=== PATIENT | female | born 1950 | race Caucasian/White ===

== ENCOUNTER 2016-03-08 09:25 | Emergency (ER) | payer MEDICARE ==
[~2016-03-08 09:25] MED LIST: ERGO400T2 PO; HYDR-2666 PO; HYDR-2869 PO; HYDR-971 PO; INSU100I11 SQ; INSU100V8 SQ; LIRA0.6P SQ; LOSA100T6 PO; METH750T2 PO; NITR100C62 PO; OMEP40CA5 PO; RANI150T6 PO; VERA180T4 PO
[2016-03-08] MEDS ORDERED: IV NORMAL SALINE 1000ML BAG 1,000 ML IV SCH (11:01)
[2016-03-08] MEDS ORDERED: ONDANSETRON PF 4 MG/2 ML VIAL. IV ONE (11:15)
[2016-03-08] MEDS ORDERED: FENTANYL PF 100 MCG/2 ML VIAL. IV PRN (11:15)
[2016-03-08] MEDS ORDERED: FAMOTIDINE 20 MG/2 ML VIAL IVP ONE (11:15)
[2016-03-08 11:21] LABS: BILIRUBIN,URINE NEGATIVE (NEG); GLUCOSE,URINE 500 mg/dL (NEG); NITRITE,URINE NEGATIVE (NEG); PH,URINE 6.5; PROTEIN,URINE NEGATIVE (NEG-TRACE)
[2016-03-08 11:24] LABS: BASO # 0.1 x10^3/uL (0.0-0.2); BASO % 1 % (0-3); EOS % 2 % (0-3); HEMATOCRIT 43.1 % (36.0-47.0); HEMOGLOBIN 14.7 g/dL (12.0-15.5); LYMPH # 1.6 x10^3/uL (1.0-4.8); LYMPH % 17 % (24-48); MEAN CORPUSCULAR HEMOGLOBIN 29 pg (25-35); MEAN CORPUSCULAR HGB CONC 34 g/dL (31-37); MEAN CORPUSCULAR VOLUME 85 fL (79-100); MONO % 8 % (0-9); NEUT % 72 % (31-73); PLATELET COUNT 274 x10^3/uL (140-400); RED BLOOD COUNT 5.07 x10^6/uL (3.50-5.40); RED CELL DISTRIBUTION WIDTH 12.6 % (11.5-14.5); WHITE BLOOD COUNT 9.7 x10^3/uL (4.0-11.0)
[2016-03-08] MEDS ORDERED: CONTRAST GIVEN MC PRN (11:30)
[2016-03-08] MEDS ORDERED: IOHEXOL 300 MG/ML 75 ML VIAL IV ONE (11:30)
[2016-03-08 11:32] LABS: CREATININE 1.1 mg/dL (0.6-1.0); GFR 49.7; POTASSIUM 4.2 mmol/L (3.5-5.1)
[2016-03-08 11:35] LABS: ALBUMIN 3.4 g/dL (3.4-5.0); ALBUMIN/GLOBULIN RATIO 0.8 (1.0-1.7); TOTAL BILIRUBIN 0.9 mg/dL (0.2-1.0); TOTAL PROTEIN 7.8 g/dL (6.4-8.2)
[2016-03-08 11:46] LABS: BACTERIA,URINE FEW /HPF (0-FEW); RBC,URINE RARE /HPF (0-2); SQUAMOUS EPITHELIAL CELL,UR MOD /LPF; WBC,URINE 20-40 /HPF (0-4)
--- NOTE | 2016-03-08 12:16 | EKG ---
[facility] [address] [place] [address] Test Date: 2016-03-08 Test Time: 11:59:41 Pat Name: MICHAEL GALLEGOS Department: Room: Gender: Female Learning Support Aide: : 1950 Requested By: LATASHA PATEL Order Number: [id number] Reading MD: Jasmeet Roberts Measurements Intervals [place] Rate: 67 P: 39 WI: 236 QRS: -7 QRSD: 92 T: 23 QT: 444 QTc: 472 Interpretive Statements SINUS RHYTHM PROLONGED WI INTERVAL Electronically Signed On 03-11-2016 10:20:21 HEALTH EQUIPMENT SERVICER by Jasmeet Roberts
--- NOTE | 2016-03-08 12:19 | RAD ---
Indication: Right upper quadrant pain. Axial imaging through the abdomen and pelvis was performed after the administration of intravenous contrast. Comparison is made with prior CT from 11/01/2015. The lung bases are clear. Calcific density right lobe of the liver is again noted and unchanged. The gallbladder is surgically absent. The pancreas and spleen are unremarkable. No adrenal mass is detected. The kidneys are unremarkable. No hydronephrosis or calculi are identified. The aorta is nonaneurysmal. Minimal inflammatory changes in the right perirenal location and adjacent to the tip of the right lobe of the liver persists and appears similar. No fluid collection is identified. The small and large bowel loops are normal caliber. There is moderate stool within the colon. The bladder is unremarkable. No free air is detected. There is a small fat-containing umbilical hernia. Impression: Similar CT when compared with exam from 11/01/2015. Mild inflammatory changes in the right abdomen adjacent to the right liver edge and right kidney is unchanged. No new abnormality is detected. No free fluid or fluid collection is detected.
[2016-03-08] MEDS ORDERED: NITR100C62 PO (14:09)
[2016-03-08] MEDS ORDERED: HYDR-971 PO (14:09)
--- NOTE | 2016-03-08 14:09 | PHYS DOC ---
Past Medical History Past Medical History: Arthritis, Diabetes-Type I, High Cholesterol, Hypertension Past Surgical History: Cholecystectomy, Hysterectomy, Knee Replacement, Other Additional Past Surgical Histo: RIGHT ROTATOR CUFF, NERVES IN NECK Alcohol Use: None Drug Use: None Adult General Chief Complaint Chief Complaint: ABDOMINAL PAIN HPI HPI Patient is a 65 year old female who presents with complaint of right upper quadrant abdominal pain for the past 5 days. Patient states that her symptoms have gradually been worsening over this time period. The patient states that she has had sharp pain that radiates towards her right flank. Patient denies any fevers or dysuria. Patient has had history of cholecystectomy. Patient has had intermittent episodes of right upper quadrant pain since her cholecystectomy. Patient denies vomiting or diarrhea with her symptoms. Patient states the pain worsens with movement. Patient has been taking [id number] medication for pain with no relief. Patient rates her pain currently as 9 out of 10. Review of Systems Review of Systems Constitutional: Denies fever or chills [] Eyes: Denies change in visual acuity, redness, or eye pain [] HENT: Denies nasal congestion or sore throat [] Respiratory: Denies cough or shortness of breath [] Cardiovascular: Denies chest pain or edema [] GI: Abdominal pain, denies nausea, vomiting, bloody stools or diarrhea [] : Denies dysuria or hematuria [] Musculoskeletal: Denies back pain or joint pain [] Integument: Denies rash or skin lesions [] Neurologic: Denies headache, focal weakness or sensory changes [] Endocrine: Denies polyuria or polydipsia [] Current Medications Current Medications Current Medications Medications (Trade) Dose Ordered Sig/[facility] Start Time Stop Time Status Last Admin Dose Admin Ceftriaxone Sodium (Rocephin 1gm Ivpb For Omni) 50 ml @ 100 mls/hr 1X ONCE 03/08/16 14:30 03/08/16 14:59 DC 03/08/16 14:21 100 MLS/HR Famotidine (Pepcid) 20 mg 1X ONCE 03/08/16 11:15 03/08/16 11:16 DC 03/08/16 11:32 20 MG Fentanyl Citrate 50 mcg 50 mcg PRN Q15MIN PRN 03/08/16 11:15 03/08/16 15:27 DC 03/08/16 11:31 50 MCG Info 1 each 1 each PRN DAILY PRN 03/08/16 11:30 03/08/16 15:27 DC Iohexol (Omnipaque 300 Mg/ml) 75 ml 1X ONCE 03/08/16 11:30 03/08/16 11:31 DC 03/08/16 11:49 75 ML Ondansetron HCl (Zofran) 4 mg 1X ONCE 03/08/16 11:15 03/08/16 11:16 DC 03/08/16 11:32 4 MG Sodium Chloride (Iv Sodium Chloride 0.9% 1000ml Bag) 1,000 ml @ 1,000 mls/hr Q1H 03/08/16 11:01 03/08/16 12:00 DC 03/08/16 11:01 1,000 MLS/HR Allergies Allergies Allergies Coded Allergies Type Severity Reaction Last Updated Verified Penicillins Allergy Intermediate 01/17/13 Yes Physical Exam Physical Exam Constitutional: Alert, afebrile, appears in moderate discomfort. [] HENT: Normocephalic, atraumatic, bilateral external ears normal, oropharynx moist, no oral exudates, nose normal. [] Eyes: PERRLA, EOMI, conjunctiva normal, no discharge. [] Neck: Normal range of motion, no tenderness, supple, no stridor. [] Cardiovascular:Heart rate regular rhythm, no murmur [] Lungs & Thorax: Bilateral breath sounds clear to auscultation [] Abdomen: Bowel sounds normal, soft, epigastric and right upper quadrant tenderness to palpation with guarding, no rebound tenderness, no masses, no pulsatile masses. [] Skin: Warm, dry, no erythema, no rash. [] Back: No tenderness, no CVA tenderness. [] Extremities: No tenderness, no cyanosis, no clubbing, ROM intact, no edema. [] Neurologic: Alert and oriented X 3, normal motor function, normal sensory function, no focal deficits noted. [] Current Patient Data Vital Signs Vital Signs Date Time Temp Pulse Resp B/P Pulse Ox O2 Delivery O2 Flow Rate FiO2 03/08/16 14:30 68 18 153/72 95 Room Air 03/08/16 10:30 98.4 98.4 Lab Values Laboratory Tests Test 03/08/16 10:45 03/08/16 10:50 White Blood Count 9.7x10^3/uL (4.0-11.0) Red Blood Count 5.07x10^6/uL (3.50-5.40) Hemoglobin 14.7g/dL (12.0-15.5) Hematocrit 43.1% (36.0-47.0) Mean Corpuscular Volume 85fL (79-100) Mean Corpuscular Hemoglobin 29pg (25-35) Mean Corpuscular Hemoglobin Concent 34g/dL (31-37) Red Cell Distribution Width 12.6% (11.5-14.5) Platelet Count 274x10^3/uL (140-400) Neutrophils (%) (Auto) 72% (31-73) Lymphocytes (%) (Auto) 17% (24-48) L Monocytes (%) (Auto) 8% (0-9) Eosinophils (%) (Auto) 2% (0-3) Basophils (%) (Auto) 1% (0-3) Neutrophils # (Auto) 7.0x10^3uL (1.8-7.7) Lymphocytes # (Auto) 1.6x10^3/uL (1.0-4.8) Monocytes # (Auto) 0.8x10^3/uL (0.0-1.1) Eosinophils # (Auto) 0.2x10^3/uL (0.0-0.7) Basophils # (Auto) 0.1x10^3/uL (0.0-0.2) Sodium Level 136mmol/L (136-145) Potassium Level 4.2mmol/L (3.5-5.1) Chloride Level 100mmol/L (98-107) Carbon Dioxide Level 26mmol/L (21-32) Anion Gap 10 (6-14) Blood Urea Nitrogen 14mg/dL (7-20) Creatinine 1.1mg/dL (0.6-1.0) H Estimated GFR (Cockcroft-Gault) 49.7 BUN/Creatinine Ratio 13 (6-20) Glucose Level 297mg/dL (70-99) H Calcium Level 9.0mg/dL (8.5-10.1) Total Bilirubin 0.9mg/dL (0.2-1.0) Aspartate Amino Transferase (AST) 16U/L (15-37) Alanine Aminotransferase (ALT) 18U/L (14-59) Alkaline Phosphatase 103U/L (46-116) Total Protein 7.8g/dL (6.4-8.2) Albumin 3.4g/dL (3.4-5.0) Albumin/Globulin Ratio 0.8 (1.0-1.7) L Lipase 131U/L (73-393) Urine Collection Type Unknown Urine Color Yellow Urine Clarity Clear Urine pH 6.5 Urine Specific [place] 1.015 Urine Protein Negativemg/dL (NEG-TRACE) Urine Glucose (UA) 500mg/dL (NEG) Urine Ketones (Stick) Negativemg/dL (NEG) Urine Blood Negative (NEG) Urine Nitrite Negative (NEG) Urine Bilirubin Negative (NEG) Urine Urobilinogen Dipstick 1.0mg/dL (0.2 mg/dL) Urine Leukocyte Esterase Large (NEG) Urine RBC Rare/HPF (0-2) Urine WBC 20-40/HPF (0-4) Urine Squamous Epithelial Cells Mod/LPF Urine Bacteria Few/HPF (0-FEW) Urine Hyaline Casts Occasional/HPF Laboratory Tests 03/08/16 10:45 Laboratory Tests 03/08/16 10:45 EKG EKG Interpreted by me: Heart rate 67, sinus rhythm, prolonged NH interval, leftward axis, no acute ST/T-wave abnormalities present [] Radiology/Procedures Radiology/Procedures [facility] [address] [place] [address] IMAGING REPORT Signed PATIENT: MICHAEL GALLEGOS ACCOUNT: [id number] : 1950 LOCATION: ER AGE: 65 SEX: F EXAM STATUS: REG ER ORD. PHYSICIAN: LATASHA PATEL MD REASON: right upper quadrant pain, history of cholecystectomy PROCEDURE: ABD PELV W/ IV CONTRAST ONLY Indication: Right upper quadrant pain. Axial imaging through the abdomen and pelvis was performed after the administration of intravenous contrast. Comparison is made with prior CT from 11/01/2015. The lung bases are clear. Calcific density right lobe of the liver is again noted and unchanged. The gallbladder is surgically absent. The pancreas and spleen are unremarkable. No adrenal mass is detected. The kidneys are unremarkable. No hydronephrosis or calculi are identified. The aorta is nonaneurysmal. Minimal inflammatory changes in the right perirenal location and adjacent to the tip of the right lobe of the liver persists and appears similar. No fluid collection is identified. The small and large bowel loops are normal caliber. There is moderate stool within the colon. The bladder is unremarkable. No free air is detected. There is a small fat-containing umbilical hernia. Impression: Similar CT when compared with exam from 11/01/2015. Mild inflammatory changes in the right abdomen adjacent to the right liver edge and right kidney is unchanged. No new abnormality is detected. No free fluid or fluid collection is detected. DICTATED and SIGNED BY: PRAMOD BRAUN MD DATE: 03/08/16 1211 CC: LATASHA PATEL MD; CLAIRE RANDOLPH MD ~ [] Course & Med Decision Making Course & Med Decision Making Pertinent Labs and Imaging studies reviewed. (See chart for details) Patient was found have signs of urinary tract infection. The patient's symptoms may be a sign of acute pyelonephritis. Patient's vital signs are stable. The patient was given IV Rocephin in the emergency department. Patient's CT scan shows right upper quadrant inflammation which was present on previous CT scan in October 2015. The patient will be continued on antibiotic therapy for treatment and advised follow-up in 3 days a primary doctor. Advised return emergency department for any worsening symptoms. Patient voiced understanding and in agreement with treatment plan. Dragon Disclaimer Dragon Disclaimer This electronic medical record was generated, in whole or in part, using a voice recognition dictation system. Departure Departure Impression: Primary Impression: Right upper quadrant abdominal pain Additional Impression: UTI (urinary tract infection) Disposition: HOME, SELF-CARE Condition: IMPROVED Referrals: CLAIRE RANDOLPH MD (PCP) Patient Instructions: Abdominal Pain (Nonspecific) Additional Instructions: Follow-up with your primary doctor in the next 3 days. Return to the emergency department for any worsening symptoms. Scripts Nitrofurantoin Monohyd/M-Cryst (Macrobid 100 Mg Capsule)100 Mg Capsule1 Cap PO BID #14 CAP Prov:LATASHA PATEL MD 03/08/16 Hydrocodone/Apap 5-325 ([place] 5-325 Tablet)1 Each Tablet1 Tab PO Q4-6HRS PRN PAIN #20 TAB Prov:LATASHA PATEL MD 03/08/16 Problem Qualifiers Additional Impression: UTI (urinary tract infection) Urinary tract infection type: site unspecified Hematuria presence: without hematuria Qualified Code: N39.0 - Urinary tract infection, site not specified LATASHA PATEL MD Mar 08, 2016 14:09
[2016-03-08 14:30] VITALS: BP 153/72
[2016-03-08] MEDS ORDERED: CEFTRIAXONE 1GM IVPB FOR OMNI 50 ML IV ONE (14:30)
== END 2016-03-08 15:00 | disposition home or self-care (01) ==
LOC: ER 09:25
DX: N39.0 Urinary tract infection, site not specified (principal); E10.9 Type 1 diabetes mellitus without complications; E78.00 Pure hypercholesterolemia, unspecified; I10 Essential (primary) hypertension; Z90.49 Acquired absence of other specified parts of digestive tract; Z90.710 Acquired absence of both cervix and uterus; Z88.0 Allergy status to penicillin
CPT/HCPCS: 36415; 74177; 80053; 81001; 83690; 85027; 87086; 93005; 96365; 96375; 99285; J0690; J2405; J3010; J7030; Q9967; S0028

== ENCOUNTER 2016-06-02 18:20 | Emergency (ER) | payer BC, MEDICARE ==
[~2016-06-02] VITALS: Ht 165.1 cm; Wt 110.2 kg
[2016-06-02 19:25] LABS: BASO % 1 % (0-3); EOS % 4 % (0-3); HEMATOCRIT 38.7 % (36.0-47.0); LYMPH # 1.7 x10^3/uL (1.0-4.8); LYMPH % 25 % (24-48); MEAN CORPUSCULAR HEMOGLOBIN 29 pg (25-35); MEAN CORPUSCULAR HGB CONC 34 g/dL (31-37); MEAN CORPUSCULAR VOLUME 86 fL (79-100); MONO % 9 % (0-9); NEUT % 62 % (31-73); PLATELET COUNT 265 x10^3/uL (140-400); RED BLOOD COUNT 4.48 x10^6/uL (3.50-5.40); RED CELL DISTRIBUTION WIDTH 13.2 % (11.5-14.5); WHITE BLOOD COUNT 6.9 x10^3/uL (4.0-11.0)
--- NOTE | 2016-06-02 19:25 | PHYS DOC ---
Past Medical History Past Medical History: Arthritis, Diabetes-Type I, High Cholesterol, Hypertension Past Surgical History: Cholecystectomy, Hysterectomy, Knee Replacement, Other Additional Past Surgical Histo: RIGHT ROTATOR CUFF, NERVES IN NECK Alcohol Use: None Drug Use: None Adult General Chief Complaint Chief Complaint: RIB PAIN HPI HPI 65-year-old female who states she's had significant left upper quadrant and epigastrium tenderness for the last week no nausea or vomiting. She states feels like it somewhat worse. She states she's had normal bowel movements. She denies any recent trauma. She states she has had her gallbladder removed but has no other street abdominal surgery. She does not drink alcohol or do drugs. Review of Systems Review of Systems Constitutional: Denies fever or chills [] Eyes: Denies change in visual acuity, redness, or eye pain [] HENT: Denies nasal congestion or sore throat [] Respiratory: Denies cough or shortness of breath [] Cardiovascular: No additional information not addressed in HPI [] GI: Has abdominal pain, has nausea, denies vomiting, has bloody stools or diarrhea [] : Denies dysuria or hematuria [] Musculoskeletal: Denies back pain or joint pain [] Integument: Denies rash or skin lesions [] Neurologic: Denies headache, focal weakness or sensory changes [] Endocrine: Denies polyuria or polydipsia [] Current Medications Current Medications Current Medications Medications (Trade) Dose Ordered Sig/[place] Start Time Stop Time Status Last Admin Dose Admin Info (Do NOT chart on this entry -- for MONITORING) 1 each PRN DAILY PRN 06/02/16 21:15 06/04/16 21:14 Iohexol (Omnipaque 300 Mg/ml) 60 ml 1X ONCE 06/02/16 21:15 06/02/16 21:16 DC 06/02/16 21:38 60 ML Morphine Sulfate 4 mg 4 mg 1X ONCE 06/02/16 20:45 06/02/16 20:46 DC 06/02/16 20:43 4 MG Multi-Ingredient Mouthwash/Gargle (Gi Cocktail Single Dose) 15 ml 1X ONCE 06/02/16 19:30 06/02/16 19:31 DC 06/02/16 19:48 15 ML Ondansetron HCl (Zofran) 4 mg 1X ONCE 06/02/16 21:30 06/02/16 21:31 DC 06/02/16 21:26 4 MG Sodium Chloride (Iv Sodium Chloride 0.9% 1000ml Bag) 1,000 ml @ 1,000 mls/hr 1X ONCE 06/02/16 21:15 06/02/16 22:14 DC 06/02/16 21:26 1,000 MLS/HR Allergies Allergies Allergies Coded Allergies Type Severity Reaction Last Updated Verified Penicillins Allergy Intermediate 01/17/13 Yes Physical Exam Physical Exam Constitutional: Well developed, well nourished, no acute distress, non-toxic appearance. [] HENT: Normocephalic, atraumatic, bilateral external ears normal, oropharynx moist, no oral exudates, nose normal. [] Eyes: PERRLA, EOMI, conjunctiva normal, no discharge. [] Neck: Normal range of motion, no tenderness, supple, no stridor. [] Cardiovascular:Heart rate regular rhythm, no murmur [] Lungs & Thorax: Bilateral breath sounds clear to auscultation [] Abdomen: Bowel sounds normal, soft, LUQ and epigastrium tenderness, no masses, no pulsatile masses. [] Skin: Warm, dry, no erythema, no rash. [] Back: No tenderness, no CVA tenderness. [] Extremities: No tenderness, no cyanosis, no clubbing, ROM intact, no edema. [] Neurologic: Alert and oriented X 3, normal motor function, normal sensory function, no focal deficits noted. [] Psychologic: Affect normal, judgement normal, mood normal. [] Current Patient Data Vital Signs Vital Signs Date Time Temp Pulse Resp B/P Pulse Ox O2 Delivery O2 Flow Rate FiO2 06/02/16 20:00 62 20 156/77 95 Room Air 06/02/16 18:35 97.8 97.8 Lab Values Laboratory Tests Test 06/02/16 18:55 06/02/16 19:13 White Blood Count 6.9x10^3/uL (4.0-11.0) Red Blood Count 4.48x10^6/uL (3.50-5.40) Hemoglobin 13.0g/dL (12.0-15.5) Hematocrit 38.7% (36.0-47.0) Mean Corpuscular Volume 86fL (79-100) Mean Corpuscular Hemoglobin 29pg (25-35) Mean Corpuscular Hemoglobin Concent 34g/dL (31-37) Red Cell Distribution Width 13.2% (11.5-14.5) Platelet Count 265x10^3/uL (140-400) Neutrophils (%) (Auto) 62% (31-73) Lymphocytes (%) (Auto) 25% (24-48) Monocytes (%) (Auto) 9% (0-9) Eosinophils (%) (Auto) 4% (0-3) H Basophils (%) (Auto) 1% (0-3) Neutrophils # (Auto) 4.3x10^3uL (1.8-7.7) Lymphocytes # (Auto) 1.7x10^3/uL (1.0-4.8) Monocytes # (Auto) 0.6x10^3/uL (0.0-1.1) Eosinophils # (Auto) 0.3x10^3/uL (0.0-0.7) Basophils # (Auto) 0.0x10^3/uL (0.0-0.2) Sodium Level 137mmol/L (136-145) Potassium Level 4.2mmol/L (3.5-5.1) Chloride Level 99mmol/L (98-107) Carbon Dioxide Level 31mmol/L (21-32) Anion Gap 7 (6-14) Blood Urea Nitrogen 13mg/dL (7-20) Creatinine 1.3mg/dL (0.6-1.0) H Estimated GFR (Cockcroft-Gault) 41.0 BUN/Creatinine Ratio 10 (6-20) Glucose Level 254mg/dL (70-99) H Calcium Level 9.9mg/dL (8.5-10.1) Total Bilirubin 0.3mg/dL (0.2-1.0) Aspartate Amino Transferase (AST) 20U/L (15-37) Alanine Aminotransferase (ALT) 20U/L (14-59) Alkaline Phosphatase 110U/L (46-116) Troponin I Quantitative < 0.017ng/mL (0.000-0.055) Total Protein 8.4g/dL (6.4-8.2) H Albumin 3.1g/dL (3.4-5.0) L Albumin/Globulin Ratio 0.6 (1.0-1.7) L Lipase 152U/L (73-393) Laboratory Tests 06/02/16 18:55 Laboratory Tests 06/02/16 19:13 EKG EKG EKG as interpreted by me shows a sinus rhythm with a rate of 69 bpm with a prolonged QT interval and a leftward axis. There are no obvious ischemic findings. Radiology/Procedures Radiology/Procedures PROCEDURE CT abdomen and pelvis with contrast HISTORY ABD PAIN TECHNIQUE Axial CT images were obtained through the abdomen and pelvis, sagittal and coronal reconstructed images were reviewed. One or more of the following individualized dose reduction techniques were utilized for this examination: 1. Automated exposure control; 2. Adjustment of the mA and/or kV according to patient size; 3. Use of iterative reconstruction technique. COMPARISON None FINDINGS The lung bases are clear. There is no effusion. There is hypertrophic change in the spine. A liver lesion is not identified. Patient has had a cholecystectomy. Spleen and adrenal glands are normal. Pancreas is normal. Retroperitoneal lymph nodes about the celiac axis are mildly prominent. A periaortic nodes are upper normal in size. There is lobulation of the kidneys but there is no renal mass or hydronephrosis. Appendix is normal. Patient has had a hysterectomy. Bladder is mildly distended. Ovaries are normal. IMPRESSION Mild retroperitoneal adenopathy etiology is not determined. Distended bladder No other abdominal or pelvic mass noted. Course & Med Decision Making Course & Med Decision Making Pertinent Labs and Imaging studies reviewed. (See chart for details) 65 yo female significant left quadrant epigastrium tenderness will have full laboratory workup including CT of her abdomen and pelvis to rule out acute cause. At this time, her symptoms seem acutely could be related to gastritis. Lipase and metabolic panel will be ordered. A GI cocktail will be given. On my reassessment, GI cocktail has been ineffective for her symptoms. I will be having her IV morphine and a fluid bolus. CT of her abdomen and pelvis is pending. Her laboratory workup was unremarkable. CT of her abdomen and pelvis was negative for any acute abnormality. She'll be discharged with a course of pain meds and will follow closely with her primary care doctor for symptom resolution in the next several days. Dragon Disclaimer Dragon Disclaimer This electronic medical record was generated, in whole or in part, using a voice recognition dictation system. Departure Departure Impression: Primary Impression: Abdominal pain Disposition: HOME, SELF-CARE Admitting Physician: Other Condition: STABLE Referrals: CLAIRE RANDOLPH MD (PCP) Patient Instructions: Abdominal Pain, [id number] Additional Instructions: Please take your pain medication as prescribed. Return to the ER if you develop any worsening of your symptoms. Continue to drink plenty of fluids and follow up closely with your primary doctor in the next 2-3 days. Scripts Ondansetron Hcl (Zofran)4 Mg Tablet4 Mg PO BID PRN NAUSEA/VOMITING #10 TAB Prov:SHANIQUA SWAN DO 06/02/16 Hydrocodone/Apap 5-325 ([place] 5-325 Tablet)1 Each Tablet1 Tab PO PRN Q6HRS PRN PAIN #10 TAB Prov:SHANIQUA SWAN DO 06/02/16 SHANIQUA SWAN DO Jun 02, 2016 19:25
[2016-06-02] MEDS ORDERED: LIDO:MAALOX:DONNATAL 1:1:1 15 ML SINGLE DOSE SWSW ONE (19:30)
[2016-06-02 19:35] LABS: CALCIUM 9.9 mg/dL (8.5-10.1); CREATININE 1.3 mg/dL (0.6-1.0); POTASSIUM 4.2 mmol/L (3.5-5.1)
[2016-06-02 19:41] LABS: ALBUMIN 3.1 g/dL (3.4-5.0); ALBUMIN/GLOBULIN RATIO 0.6 (1.0-1.7); TOTAL BILIRUBIN 0.3 mg/dL (0.2-1.0); TOTAL PROTEIN 8.4 g/dL (6.4-8.2)
[2016-06-02] MEDS ORDERED: MORPHINE SULFATE 4 MG/ML DISP.SYRIN. IV ONE (20:45)
[2016-06-02] MEDS ORDERED: CONTRAST GIVEN MC PRN (21:15)
[2016-06-02] MEDS ORDERED: IOHEXOL 300 MG/ML 75 ML VIAL IV ONE (21:15)
[2016-06-02] MEDS ORDERED: IV NORMAL SALINE 1000ML BAG 1,000 ML IV ONE (21:15)
[2016-06-02] MEDS ORDERED: ONDANSETRON PF 4 MG/2 ML VIAL. ONE (21:23)
[2016-06-02] MEDS ORDERED: ONDANSETRON PF 4 MG/2 ML VIAL. IV ONE (21:30)
--- NOTE | 2016-06-02 22:15 | RAD ---
PROCEDURE CT abdomen and pelvis with contrast HISTORY ABD PAIN TECHNIQUE Axial CT images were obtained through the abdomen and pelvis, sagittal and coronal reconstructed images were reviewed. One or more of the following individualized dose reduction techniques were utilized for this examination: 1. Automated exposure control; 2. Adjustment of the mA and/or kV according to patient size; 3. Use of iterative reconstruction technique. COMPARISON None FINDINGS The lung bases are clear. There is no effusion. There is hypertrophic change in the spine. A liver lesion is not identified. Patient has had a cholecystectomy. Spleen and adrenal glands are normal. Pancreas is normal. Retroperitoneal lymph nodes about the celiac axis are mildly prominent. A periaortic nodes are upper normal in size. There is lobulation of the kidneys but there is no renal mass or hydronephrosis. Appendix is normal. Patient has had a hysterectomy. Bladder is mildly distended. Ovaries are normal. IMPRESSION Mild retroperitoneal adenopathy etiology is not determined. Distended bladder No other abdominal or pelvic mass noted. Electronically signed by: Drew Flowers MD (Jun 02, 2016 22:14:02)
[2016-06-02] MEDS ORDERED: HYDR-971 PO (22:24)
[2016-06-02] MEDS ORDERED: ONDA4TAB7 PO (22:24)
[2016-06-02 22:30] VITALS: BP 175/88
--- NOTE | 2016-06-03 00:21 | EKG ---
[facility] [address] [place] [address] Test Date: 2016-06-02 Test Time: 18:29:57 Pat Name: MICHAEL GALLEGOS Department: Room: Gender: F Property Insurance Claims Examiner: : 1950 Requested By: SHANIQUA SWAN Order Number: [id number] Reading MD: Jasmeet Roberts Measurements Intervals [place] Rate: 69 P: -52 MT: 226 QRS: -7 QRSD: 92 T: 33 QT: 406 QTc: 437 Interpretive Statements SINUS RHYTHM PROLONGED MT INTERVAL Electronically Signed On 06-04-2016 15:37:01 CDT by Jasmeet Roberts
--- NOTE | 2016-06-03 09:03 | RAD ---
Portable chest, 06/02/2016: History: Chest pain Comparison is made to a study from 04/10/2014. The heart size and pulmonary vascularity are normal. No pulmonary infiltrates are seen. There is no evidence of pleural fluid. Moderate spurring is present in the spine. IMPRESSION: No acute cardiopulmonary abnormality is detected.
== END 2016-06-02 22:43 | disposition home or self-care (01) ==
LOC: ER 18:20
DX: R10.13 Epigastric pain (principal); R10.12 Left upper quadrant pain; E10.9 Type 1 diabetes mellitus without complications; E78.00 Pure hypercholesterolemia, unspecified; I10 Essential (primary) hypertension; M19.90 Unspecified osteoarthritis, unspecified site; Z90.710 Acquired absence of both cervix and uterus; Z88.0 Allergy status to penicillin
CPT/HCPCS: 36415; 71010; 74177; 80053; 83690; 84484; 85027; 93005; 96361; 96374; 96375; 99285; J2270; J2405; J7030; Q9967

== ENCOUNTER 2016-06-05 03:20 | Inpatient (IN) | payer BC ==
[~2016-06-05] VITALS: Ht 165.1 cm; Wt 111.8 kg
[2016-06-05] VITALS (16 sets, daily range): BP systolic 123–165; BP diastolic 53–90
[~2016-06-05 03:20] MED LIST changes: +ONDA4TAB7 PO
--- NOTE | 2016-06-05 03:34 | PHYS DOC ---
Past Medical History Past Medical History: Arthritis, Diabetes-Type I, High Cholesterol, Hypertension Past Surgical History: Cholecystectomy, Hysterectomy, Knee Replacement, Other Additional Past Surgical Histo: RIGHT ROTATOR CUFF, NERVES IN NECK Alcohol Use: None Drug Use: None Adult General Chief Complaint Chief Complaint: CHEST PAIN [facility] HPI Patient is a 65 year old female who presents by EMS for central chest pain radiating to shoulders and back, constant, gradually worsening since waking approx 1.5 hour prior to arrival. She notes sharp pain. Denies cough, dyspnea , n/v, f/c, rash, diaphoresis, palpitations, lightheadedness, leg pain or swelling, or hemoptysis. Has not seen a systems software developer prior and no prior ischemic workup. Review of Systems Review of Systems Constitutional: Denies fever or chills [] Eyes: Denies change in visual acuity, redness, or eye pain [] HENT: Denies nasal congestion or sore throat [] Respiratory: Denies cough or shortness of breath [] Cardiovascular: No additional information not addressed in HPI [] GI: Denies abdominal pain, nausea, vomiting, bloody stools or diarrhea [] : Denies dysuria or hematuria [] Musculoskeletal: Denies back pain or joint pain [] Integument: Denies rash or skin lesions [] Neurologic: Denies headache, focal weakness or sensory changes [] Endocrine: Denies polyuria or polydipsia [] Allergies Allergies Allergies Coded Allergies Type Severity Reaction Last Updated Verified Penicillins Allergy Intermediate 01/17/13 Yes Physical Exam Physical Exam Constitutional: Well developed, well nourished, no acute distress, non-toxic appearance. [] HENT: Normocephalic, atraumatic, bilateral external ears normal, oropharynx moist, nose normal. [] Eyes: PERRLA, EOMI. [] Neck: Normal range of motion, supple, no stridor. [] Cardiovascular:Heart rate regular rhythm [] Lungs & Thorax: Bilateral breath sounds clear to auscultation. No chest wall tenderness [] Abdomen: Bowel sounds normal, soft, no tenderness. [] Skin: Warm, dry, no erythema, no rash. [] Back: No tenderness, no CVA tenderness. [] Extremities: No tenderness, ROM intact, no edema. [] Neurologic: Alert and oriented X 3, normal motor function, normal sensory function, no focal deficits noted. [] Psychologic: Affect normal, judgement normal, mood normal. [] Current Patient Data Vital Signs Vital Signs Date Time Temp Pulse Resp B/P Pulse Ox O2 Delivery O2 Flow Rate FiO2 06/05/16 03:30 98.2 62 20 177/75 98 Room Air 98.2 EKG EKG EKG as interpreted by me as normal sinus rhythm, rate 63, no ST-T changes, normal intervals, no ectopy Radiology/Procedures Radiology/Procedures Chest xray as interpreted by me with no acute cardiopulmonary disease process Course & Med Decision Making Course & Med Decision Making Pertinent Labs and Imaging studies reviewed. (See chart for details) ROBERT score 2. Workup is largely unremarkable. She will be admitted for ACS rule out. She asks for cardiology consultation by Dr. Pacheco, her 's systems software developer. Discussed case with Dr. Burns, alberene stone setter for Dr. Rossi, who will admit. Dragon Disclaimer Dragon Disclaimer This electronic medical record was generated, in whole or in part, using a voice recognition dictation system. Departure Departure Impression: Primary Impression: Chest pain Disposition: ADMITTED INPATIENT Condition: STABLE Referrals: CLAIRE ROSSI MD (PCP) Problem Qualifiers Primary Impression: Chest pain Chest pain type: unspecified Qualified Code: R07.9 - Chest pain, unspecified Nick TAMAYO MD Jun 05, 2016 03:34
[2016-06-05] MEDS ORDERED: LIDO:MAALOX:DONNATAL 1:1:1 15 ML SINGLE DOSE SWSW ONE (03:45)
[2016-06-05] MEDS: FENTANYL PF 100 MCG/2 ML VIAL. IV PRN ×2 (04:26→09:39)
[2016-06-05 04:56] LABS: BASO # 0.1 x10^3/uL (0.0-0.2); BASO % 1 % (0-3); EOS % 3 % (0-3); HEMATOCRIT 38.8 % (36.0-47.0); LYMPH # 1.4 x10^3/uL (1.0-4.8); LYMPH % 17 % (24-48); MEAN CORPUSCULAR HEMOGLOBIN 29 pg (25-35); MEAN CORPUSCULAR HGB CONC 34 g/dL (31-37); MEAN CORPUSCULAR VOLUME 86 fL (79-100); MONO % 7 % (0-9); NEUT % 73 % (31-73); PLATELET COUNT 255 x10^3/uL (140-400); RED BLOOD COUNT 4.49 x10^6/uL (3.50-5.40); RED CELL DISTRIBUTION WIDTH 13.3 % (11.5-14.5); WHITE BLOOD COUNT 8.2 x10^3/uL (4.0-11.0)
[2016-06-05 05:07] LABS: CALCIUM 9.5 mg/dL (8.5-10.1); CREATININE 1.1 mg/dL (0.6-1.0); GFR 49.7; MAGNESIUM 1.5 mg/dL (1.8-2.4); POTASSIUM 4.1 mmol/L (3.5-5.1)
[2016-06-05 05:25] LABS: INR 1.2 (0.8-1.1); PROTHROMBIN TIME PATIENT 14.2 SEC (11.7-14.0)
[2016-06-05] MEDS ORDERED: MORPHINE SULFATE 4 MG/ML DISP.SYRIN. IV PRN (05:30)
[2016-06-05] MEDS ORDERED: NITROGLYCERIN SUBLINGUAL 0.4 MG BOTTLE OF 25. SL PRN (05:30)
[2016-06-05] MEDS ORDERED: ACETAMINOPHEN 325 MG TABLET. PO PRN ×2 (05:30→19:00)
--- NOTE | 2016-06-05 05:36 | ACF ---
Admit Criteria Forms Admit Criteria Forms Admit Criteria Forms CARDIOLOGY GRG Clinical Indications for Admission to Inpatient Care ( Place 'X' for any and all applicable criteria): Hospital admission is needed for appropriate care of the patient because of ANY ONE of the following (1): [ ] I. Hemodynamic instability as indicated by ALL of the following (1)(2)(3) (4)(5) [ ]a) Vital signs or other findings not as expected for chronic patient condition or baseline [ ]b) Instability indicated by ANY ONE of the following: [ ]i) Hypotension [ ]ii) Symptomatic Tachycardia unresponsive to treatment ( e.g., analgesia, fluids, sedation as indicated) [ ]iii) Inadequate perfusion indicated by ANY ONE of the following: [ ] 1) Lactic acidosis (> 2 mmol/L) [ ] 2) New abnormal capillary refill (> 3 seconds) [ ] 3) Reduced urine output [ ] 4) New altered mental status [ ]iv) Orthostatic vital sign changes unresponsive to treatment (e.g., fluids) [ ]v) IV inotropic or vasopressor medication required to maintain adequate blood pressure or perfusion [ ] II. Severe heart failure as indicated by ANY ONE of the following(17)(18) [ ]a) Respiratory distress [ ]b) Hypotension [ ]c) Anasarca (refractory to outpatient therapy) [ ]d) Cardiac arrhythmias of immediate concern [ ]e) Myocardial ischemia [ ] III. Cardiac arrhythmias or findings of immediate concern indicated by ANY ONE of the following (19)(20): [ ] a) Heart rhythms that are inherently dangerous or unstable indicated by ANY ONE of the following (21)(22)(23): [ ] i) Resuscitated ventricular fibrillation or cardiac arrest [ ] ii) Ventricular escape rhythm [ ] iii) Sustained ventricular tachycardia (30 seconds or more of ventricular rhythm at greater than 100 beats per minute) [ ] iv) Nonsustained ventricular tachycardia and ANY ONE of the following: [ ] 1) Suspected cardiac ischemia as cause or consequence of ventricular tachycardia [ ] 2) In setting of acute myocarditis [ ] b) Unstable cardiac conduction defects indicated by ANY ONE of the following(23)(24)(25) [ ] i) Type II second-degree atrioventricular block [ ]ii) Third-degree atrioventricular block [ ]iii) New-onset left bundle branch block with suspected myocardial ischemia [ ]c) Any heart rhythm and ANY ONE of the following (21)(22)(26)(27) (28) [ ] i) Continuous long-term ECG monitoring needed (e.g., initiation of drug requiring monitoring for more than 24 hours) [ ] ii) Patient has automatic implanted cardioverter defibrillator that is repeatedly firing, malfunctioning, or in need of immediate adjustment of settings beyond the scope of ambulatory or observation care [ ]d) Heart rhythms of concern due to ANY ONE of the following: [ ] i) Hypotension [ ] ii) Respiratory distress [ ] iii) Association with other significant symptoms (e.g., bradycardia with syncope or ongoing dizziness, supraventricular tachycardia with chest pain (14)(15)(17) [ ] IV. Monitoring for cardiac contusion beyond the scope of observation care needed [A](30)(31)(32) [ ] V. Surgical or device complication (e.g., valve replacement complication , pacemaker dysfunction) (35)(41)(44)(45)(46) [ ] . Inpatient palliative care needed. [B](49) Also use Inpatient Palliative Care Criteria [ ] VII. Nonbacterial thrombotic (marantic) endocarditis (36)(43)(47)(48) [X] VIII. Cardiology condition, symptom, or finding for which emergency and observation care has failed or are not considered appropriate. [ ] IX. Acute valvular disease requiring inpatient as indicated by ANY ONE of the following (41) [ ]a) Acute valvular regurgitation (42) [ ]b) Noninfectious valvulitis (43) [ ]c) Obstructive valve thrombosis [ ]d) Paravalvular leak [ ]e) Other significant valvular disorder remaining after emergency or observation level of care (as appropriate) [ ]X. Pericardial disease requiring inpatient treatment as indicated by ANY ONE of the following (33)(34)(35)(36)(37) [ ]a) Suspected tamponade (38)(39)(40) [ ]b) Hemopericardium [ ]c) Other significant pericardial disorder remaining after emergency or observation level of care (as appropriate) [ ] XI. Cardiac ischemia beyond scope of emergency and observation care. [ ] XII. Hypertension requiring inpatient treatment as indicated by ANY ONE of the following (6)(7)(8) [ ]a) SBP greater than 220 mm Hg or DBP greater than 120 mmHg despite treatment [ ]b) SBP greater than 140 mm Hg or DBP greater than 100 mm Hg with evidence of acute end organ damage as indicated by ANY ONE of the following [ ] i) Encephalopathy [ ] ii) Acute renal failure as indicated by new onset of ANY ONE of the following (9)(10)(11)(12)(13) [ ]1) 3-fold rise in serum creatinine from baseline [ ]2) Serum creatinine greater than 4 mg/dL ( 354 micromoles/L) with acute rise greater than 0.5 mg/dL (44.2 micromoles/L) [ ]3) Reduction of more than 75% in estimated glomerular filtration rate from baseline [ ]4) Estimated glomerular filtration rate less than 35 mL/min/1.73m2 (0.59 mL/sec/1.73m2) in child up to 18 years of age [ ]5) Cessation of urine output indicated by ALL of the following [ ]A. Adequate volume status [ ]B. Inadequate urine output as indicated by ANY ONE of the following [ ]a. Urine output less than 0.3 mL/kg/hr for 24 hours [ ]b. Anuria (urine output less than 0.1 mL/kg/hr) for 12 hours [ ] iii) Aortic dissection [ ] iv) Myocardial Ischemia [ ] v) Left ventricular heart failure [ ]vi) Retinal Hemorrhage [ ]vii) Other significant finding [ ]c) Hypertension in child requiring inpatient treatment as indicated by ALL of the following(14)(15)(16) [ ] i) Outpatient treatment not effective, not available, or not appropriate [ ]ii) SBP or DBP greater than 95th percentile for age [ ]iii) Evidence of acute end organ damage as indicated by ANY ONE of the following [ ]1) Altered mental status [ ]2) Acute renal failure as indicated by new onset of ANY ONE of the following(9)(10)(11)(12)(13) [ ]A. 3-fold rise in serum creatinine from baseline [ ]B. Serum creatinine greater than 4 mg/dL (354 micromoles/L) with acute rise greater than 0.5 mg/dL (44.2 micromoles/L) [ ]C. Reduction of more than 75% in estimated glomerular filtration rate from baseline [ ]D. Estimated glomerular filtration rate less than 35 mL/min/1.73m2 (0.59 mL/sec/1.73m2) in child up to 18 years of age [ ]E. Cessation of urine output indicated by ALL of the following [ ]a. Adequate volume status [ ]b. Inadequate urine output as indicated by ANY ONE of the following [ ]i) Urine output less than 0.3 mL/kg/hr for 24 hours [ ]ii) Anuria ( urine output less than 0.1 mL/kg/hr) for 12 hours [ ]3) Severe headache [ ]4) Visual disturbance [ ]5) Retinal hemorrhage [ ]6) Other significant finding [ ]XIII. Complications of transplanted heart indicated by ANY ONE of the following(61): [ ]a) Acute graft rejection requiring inpatient management (eg, intravenous immunosuppression)(62)(63) [ ]b) Acute graft heart failure indicated by ANY ONE of the following(64): [ ]i) Hemodynamic instability [ ]ii) Cardiac arrhythmias of immediate concern [ ]iii) Pulmonary edema that is very severe (eg, mechanical ventilation needed, imminent or likely, need for 100% oxygen to keep oxygen saturation above 90%) [ ]iv) Pulmonary edema that is persistent as indicated by ALL of the following: [ ]1) New need for oxygen therapy to keep oxygen saturation above 90% (or increased FiO2 need from baseline) [ ]2) Has not improved sufficiently with emergency department or observation care IV diuretics or other heart failure treatments[E] [ ]v) Altered mental status that is severe or persistent [ ]vi) Increased creatinine (new on laboratory test) with reduction of more than 50% in estimated glomerular filtration rate from baseline [ ]vii) Progressively (ongoing) rising creatinine (known from past laboratory test) with reduction of more than 25% in estimated glomerular filtration rate from baseline [ ]viii) Acute renal failure [ ]ix) Acute peripheral ischemia (eg, examination shows pulseless, cool, mottled, or cyanotic extremity) [ ]x) Pulmonary artery catheter monitoring needed [ ]xi) Other sign or symptom of heart failure requiring inpatient treatment (ie, too severe or not responsive to outpatient and observation care treatment) [ ]c) Infection requiring inpatient management (eg, Hemodynamic instability, need for intravenous antimicrobial treatment)(66)(67)(68)(69)(70) [ ]d) Cardiac allograft vasculopathy requiring inpatient management ( eg evidence of cardiac ischemia)(71) [ ]e) Other complication of transplanted heart (eg, stroke, severe pulmonary hypertension, severe valvular dysfunction) requiring inpatient management(72) The original [facility] content created by [facility] has been revised. The portions of the content which have been revised are identified through the use of italic text or in bold, and [facility] has neither reviewed nor approved the modified material. All other unmodified content is copyright [facility]. Please see references footnoted in the original [facility] edition 2016 TORI FREITAS Jun 05, 2016 05:36
--- NOTE | 2016-06-05 05:45 | EKG ---
[facility] [address] [place] [address] Test Date: 2016-06-05 Test Time: 03:29:22 Pat Name: MICHAEL GALLEGOS Department: Room: 207 1 Gender: F Continuous Towel Roller: : 1950 Requested By: Nick TAMAYO Order Number: [id number] Reading MD: Jasmeet Roberts Measurements Intervals Victor Rate: 63 P: -123 TX: 200 QRS: -13 QRSD: 92 T: 18 QT: 452 QTc: 466 Interpretive Statements SINUS RHYTHM Electronically Signed On 06-06-2016 8:19:24 CDT by Jasmeet Roberts
[2016-06-05] MEDS ORDERED: VERA180C4 PO (06:43)
[2016-06-05] MEDS ORDERED: NPH,100V4 SQ (06:43)
[2016-06-05] MEDS ORDERED: PERM60CR2 TP (06:43)
[2016-06-05] MEDS ORDERED: INSU100V10 SQ (06:43)
[2016-06-05] MEDS ORDERED: HYDR12.58 PO (06:43)
[2016-06-05] MEDS ORDERED: HYDR200T5 PO (06:43)
--- NOTE | 2016-06-05 07:15 | RAD ---
Chest, 2 views, 06/05/2016: History: Chest pain Comparison is made to a study from 06/02/2016. The heart size and pulmonary vascularity are normal. No pulmonary infiltrates are seen. There is no evidence of pleural fluid. Moderate hypertrophic spurring is present in the spine. IMPRESSION: No acute cardiopulmonary abnormality is detected.
[2016-06-05] MEDS ORDERED: CYCL10TA2 PO (11:07)
[2016-06-05] MEDS ORDERED: ATOR10TA60 PO (11:07)
[2016-06-05] MEDS ORDERED: METO-269 PO (11:07)
[2016-06-05] MEDS: ONDANSETRON PF 4 MG/2 ML VIAL. IV PRN ×2 (11:54→21:19)
[2016-06-05] MEDS: IV 1/2 NORMAL SALINE 1,000 ML IV SCH (12:15)
--- NOTE | 2016-06-05 12:41 | PDOC ---
MODERATE SEDATION ASSESSMENT RISKS/ALTERNATIVES Risks/Alternatives Risks and alternatives of this type of sedation and procedure discussed with: RISK/ALTERNATIVES: Patient H & P ON CHART H & P H & P on chart and reviewed for co-morbid conditions and appropriate labs. H&P ON CHART: Yes STATUS PREG STATUS ASSESSED: Yes MEDS/ALLERGIES REVIEWED Meds/Allergies Reviewed Medications and Allergies including time and route of recently administered narcotics and sedatives. MEDS/ALLERGIES REVIEWED: Yes ASA RATING ASA RATING: I AIRWAY ASSESSMENT Airway Assessment Airway patency, oral function limitations, presence of caps, crowns, dentures, partials, and ability to extend neck assessed. AIRWAY ASSESSMENT: Yes MALLAMPATI SCORE MALLAMPATI SCORE: II PRE-SEDATION ASSESSMENT PRE-SEDATION ASSESSMENT: Yes KELL MANJARREZ MD Jun 05, 2016 12:41
[2016-06-05] MEDS ORDERED: IOHEXOL 300 MG/ML 100ML VIAL. ONE ×2 (12:45→13:42)
[2016-06-05] MEDS ORDERED: LIDOCAINE 2% 20 ML VIAL. ONE (12:45)
[2016-06-05] MEDS ORDERED: MIDAZOLAM HCL/PF 5 MG/5 ML VIAL. ONE (12:52)
[2016-06-05] MEDS ORDERED: FENTANYL PF 250 MCG/5 ML VIAL. ONE (12:52)
--- NOTE | 2016-06-05 12:53 | PDOC2 ---
CONSULT Date of Consult Date of Consult DATE: 06/05/16 TIME: 12:42 Reason for Consult Reason for Consult: Chest pain Referring Physician Referring Physician: Dr. Rossi Identification/Chief Complaint Chief Complaint Chest pain Source Source: Patient History of Present Illness Reason for Visit: Ms. Gonsales is a pleasant 65 year old female who presented to the ED with chest pain. Pt reported that she was woken up by substernal chest pain around 0100- 0130. Pt reported she tried using her inhaler and took some Tums to try to alleviate the pain. After waiting about an 1 1/2 hours without any relief, the pt came to the ED. Pt described the pain as a sharp constant 10/10 pain that radiated to her back and right shoulder. Pt reports that she has a history of pleurisy and this is pain is worse than that. Pt reported that she was seen in the ED on 06/02/16 for left anterolateral wall chest pain and she was discharged home after receiving morphine. Pt reported that they told her it was musculoskeletal pain. Pt denies fever/chills/n/v/diaphoresis/cough/abdominal pain. On examining the patient, the pt reports still having this sharp substernal pain radiating to her back and right shoulder. Past Medical History Cardiovascular: HTN Pulmonary: Asthma Hepatobiliary: Other Endocrine: Diabetes Past Surgical History Past Surgical History: Cholecystectomy, Total knee replacement, Hysterectomy, Other (right rotator cuff) Family History Family History: Heart Disease, Stroke Social History ALCOHOL: social Drugs: None Lives: with Family Current Problem List Problem List Problems Medical Problems: (1) Chest pain Status: Acute Current Medications Current Medications Current Medications Fentanyl Citrate (Fentanyl 2ml Vial) 50 mcg PRN Q15MIN PRN IV PAIN GREATER THAN 3/10 Last administered on 06/05/16 09:39; Start 06/05/16 at 03:45; Stop at 03:44 Multi-Ingredient Mouthwash/Gargle (Gi Cocktail Single Dose) 15 ml 1X ONCE SWSW Last administered on 06/05/16 04:24; Start 06/05/16 at 03:45; Stop 06/05/16 at 03:46; Status DC Ondansetron HCl (Zofran) 4 mg PRN Q8HRS PRN IV NAUSEA/VOMITING Last administered on 06/05/16 11:54; Start 06/05/16 at 05:30; Stop 06/06/16 at 05:29 Morphine Sulfate 4 mg PRN Q2HR PRN IV PAIN Last administered on 06/05/16 11:55 ; Start 06/05/16 at 05:30; Stop 06/06/16 at 05:29 Acetaminophen (Tylenol) 650 mg PRN Q4HRS PRN PO FEVER; Start 06/05/16 at 05:30 ; Stop 06/06/16 at 05:29 Nitroglycerin 0.4 mg 0.4 mg PRN Q5MIN PRN SL CHEST PAIN Last administered on 11:54; Start 06/05/16 at 05:30; Stop 06/06/16 at 05:29 Sodium Chloride (Iv Sodium Chloride 0.45%) 1,000 ml @ 60 mls/hr [id number] IV Last administered on 06/05/16 12:15; Start 06/05/16 at 12:00 Active Scripts Active [place] 5-325 Tablet (Acetaminophen/Hydrocodone Bitart) 1 Each Tablet 1 Tab PO PRN Q6HRS PRN Reported Toprol Xl (Metoprolol Succinate) 50 Mg Tab.er.24h 1 Tab PO DAILY Atorvastatin Calcium 10 Mg Tablet 1 Tab PO DAILY Cyclobenzaprine Hcl 10 Mg Tablet 1 Tab PO QHS Novolin N (Nph, Human Insulin Isophane) 100 Unit/1 Ml Vial 43 Unit SQ BID Novolin R (Insulin Regular, Human) 100 Unit/1 Ml Vial 15 Unit SQ TIDWMEALS Verapamil Sr (Verapamil HCl) 180 Mg Cap24h.pel 180 Mg PO BID Hydrochlorothiazide Tablet (Hydrochlorothiazide) 12.5 Mg Tablet 12.5 Mg PO DAILY Hydroxychloroquine Sulfate 200 Mg Tablet 200 Mg PO BID Hydralazine Hcl 50 Mg Tablet 1 Tab PO BID Losartan Potassium 100 Mg Tablet 100 Mg PO Allergies Allergies: Coded Allergies: Penicillins (Verified Allergy, Intermediate, 01/17/13) ROS General: No: Chills, Fatigue, Night Sweats PSYCHOLOGICAL ROS: No: Anxiety, Depression, Disorientation Eyes: No Blurry vision, No Decreased vision, No Double vision, No Photophobia HEENT: No: Heacaches, Hearing change, Visual Changes Respiratory: No: Cough, Shortness of breath, Tachypnea, Wheezing Cardiovascular: yes Chest Pain, No Edema, No Lt Headedness, No Palpitations Gastrointestinal: No Abdominal Pain, No Nausea, No Vomiting Genitourinary: No Dysuria, No Flank Pain, No Frequency, No Incontinence, No Pain Musculoskeletal: Yes Pain In: (back and right shoulder) Neurological: No Behavorial Changes, No Confusion, No Dizziness, No Headaches Physical Exam General: Alert, Oriented X3, Cooperative HEENT: Atraumatic, PERRLA Lungs: Clear to auscultation, Normal air movement Heart: Regular rate, Normal S1, Normal S2, Other (nontender to palpitation of chest wall) Abdomen: Normal bowel sounds, Soft, No tenderness Extremities: No clubbing, No edema Psych/Mental Status: Mental status NL Vitals VITALS Vital Signs Date Time Temp Pulse Resp B/P Pulse Ox O2 Delivery O2 Flow Rate FiO2 06/05/16 12:35 Room Air 06/05/16 11:55 98 06/05/16 11:54 71 148/59 06/05/16 11:27 97.0 18 97.0 Labs Labs Laboratory Tests Test 06/05/16 04:40 06/05/16 11:00 White Blood Count 8.2x10^3/uL (4.0-11.0) Red Blood Count 4.49x10^6/uL (3.50-5.40) Hemoglobin 13.0g/dL (12.0-15.5) Hematocrit 38.8% (36.0-47.0) Mean Corpuscular Volume 86fL (79-100) Mean Corpuscular Hemoglobin 29pg (25-35) Mean Corpuscular Hemoglobin Concent 34g/dL (31-37) Red Cell Distribution Width 13.3% (11.5-14.5) Platelet Count 255x10^3/uL (140-400) Neutrophils (%) (Auto) 73% (31-73) Lymphocytes (%) (Auto) 17% (24-48) Monocytes (%) (Auto) 7% (0-9) Eosinophils (%) (Auto) 3% (0-3) Basophils (%) (Auto) 1% (0-3) Neutrophils # (Auto) 6.0x10^3uL (1.8-7.7) Lymphocytes # (Auto) 1.4x10^3/uL (1.0-4.8) Monocytes # (Auto) 0.6x10^3/uL (0.0-1.1) Eosinophils # (Auto) 0.2x10^3/uL (0.0-0.7) Basophils # (Auto) 0.1x10^3/uL (0.0-0.2) Prothrombin Time 14.2SEC (11.7-14.0) Prothromb Time International Ratio 1.2 (0.8-1.1) D-Dimer (Zoya) 0.51ug/mlFEU (0.00-0.50) Sodium Level 138mmol/L (136-145) Potassium Level 4.1mmol/L (3.5-5.1) Chloride Level 101mmol/L (98-107) Carbon Dioxide Level 28mmol/L (21-32) Anion Gap 9 (6-14) Blood Urea Nitrogen 20mg/dL (7-20) Creatinine 1.1mg/dL (0.6-1.0) Estimated GFR (Cockcroft-Gault) 49.7 Glucose Level 204mg/dL (70-99) Calcium Level 9.5mg/dL (8.5-10.1) Magnesium Level 1.5mg/dL (1.8-2.4) Troponin I Quantitative < 0.017ng/mL (0.000-0.055) 0.027ng/mL (0.000-0.055) NI-Yaq-E-Type Natriuretic Peptide 114pg/mL (0-124) Laboratory Tests Test 06/05/16 04:40 06/05/16 11:00 White Blood Count 8.2x10^3/uL (4.0-11.0) Red Blood Count 4.49x10^6/uL (3.50-5.40) Hemoglobin 13.0g/dL (12.0-15.5) Hematocrit 38.8% (36.0-47.0) Mean Corpuscular Volume 86fL (79-100) Mean Corpuscular Hemoglobin 29pg (25-35) Mean Corpuscular Hemoglobin Concent 34g/dL (31-37) Red Cell Distribution Width 13.3% (11.5-14.5) Platelet Count 255x10^3/uL (140-400) Neutrophils (%) (Auto) 73% (31-73) Lymphocytes (%) (Auto) 17% (24-48) Monocytes (%) (Auto) 7% (0-9) Eosinophils (%) (Auto) 3% (0-3) Basophils (%) (Auto) 1% (0-3) Neutrophils # (Auto) 6.0x10^3uL (1.8-7.7) Lymphocytes # (Auto) 1.4x10^3/uL (1.0-4.8) Monocytes # (Auto) 0.6x10^3/uL (0.0-1.1) Eosinophils # (Auto) 0.2x10^3/uL (0.0-0.7) Basophils # (Auto) 0.1x10^3/uL (0.0-0.2) Prothrombin Time 14.2SEC (11.7-14.0) Prothromb Time International Ratio 1.2 (0.8-1.1) D-Dimer (Zoya) 0.51ug/mlFEU (0.00-0.50) Sodium Level 138mmol/L (136-145) Potassium Level 4.1mmol/L (3.5-5.1) Chloride Level 101mmol/L (98-107) Carbon Dioxide Level 28mmol/L (21-32) Anion Gap 9 (6-14) Blood Urea Nitrogen 20mg/dL (7-20) Creatinine 1.1mg/dL (0.6-1.0) Estimated GFR (Cockcroft-Gault) 49.7 Glucose Level 204mg/dL (70-99) Calcium Level 9.5mg/dL (8.5-10.1) Magnesium Level 1.5mg/dL (1.8-2.4) Troponin I Quantitative < 0.017ng/mL (0.000-0.055) 0.027ng/mL (0.000-0.055) XC-Rcm-O-Type Natriuretic Peptide 114pg/mL (0-124) Assessment/Plan Assessment/Plan Assessment: - Chest pain, r/o ACS, possible unstable angina - Hx of HTN - Hx of HLD - Hx of DM1 - Hx of Pleurisy Plan: - Since pt is having ongoing chest pain during my assessment, I ordered an EKG stat. Even though the EKG did not show any significant acute changes I'm concerned with the possibility of unstable angina on this patient. - Pt's troponin elevated to 0.026 on her first repeat - With patient's risk factors (age, HTN, HLD, DM1) and ongoing chest pain, I recommend the patient to have a heart cath today. - I have discussed the situation options as well as risks with the patient and it was decided to proceed with a heart catheterization possible PTCA possible stent to be done today. Will take the patient to the Hydraulic Controls Technician shortly. Thank you for your consultation and allowing me to participate in the care of this patient! KELL MANJARREZ MD Jun 05, 2016 12:53
[2016-06-05] MEDS ORDERED: MIDAZOLAM HCL/PF 2 MG/2 ML VIAL. ONE (12:58)
[2016-06-05] MEDS ORDERED: FENTANYL PF 100 MCG/2 ML VIAL. ONE (12:58)
[2016-06-05] MEDS ORDERED: IOHEXOL 300 MG/ML 100ML VIAL. IART ONE (13:15)
[2016-06-05] MEDS ORDERED: LIDOCAINE 2% 20 ML VIAL. IJ ONE (13:15)
[2016-06-05] MEDS ORDERED: FENTANYL PF 100 MCG/2 ML VIAL. IV ONE (13:15)
[2016-06-05] MEDS ORDERED: MIDAZOLAM HCL/PF 2 MG/2 ML VIAL. IV ONE (13:15)
[2016-06-05] MEDS ORDERED: HEPARIN for IV BOLUS 10,000 UNIT/10 ML VIAL. ONE ×2 (13:18→13:42)
[2016-06-05] MEDS ORDERED: TIROFIBAN 12.5MG -0.9% NS 250 ML IV ONE (13:22)
[2016-06-05] MEDS ORDERED: HEPARIN for IV BOLUS 10,000 UNIT/10 ML VIAL. IV ONE (13:30)
[2016-06-05] MEDS ORDERED: TIROFIBAN 12.5MG -0.9% NS 250 ML IV PRN (13:45)
[2016-06-05] MEDS ORDERED: NITROGLYCERIN PREMIX 250 ML IV ONE (13:51)
[2016-06-05] MEDS ORDERED: TIROFIBAN-0.9% SODIUM CHLORIDE 12.5 MG/250 ML BAG. IV ONE (14:00)
[2016-06-05] MEDS ORDERED: NITROGLYCERIN PREMIX 250 ML IV PRN (14:00)
[2016-06-05] MEDS ORDERED: HEPARIN 25,000UTS/500ML PREMIX 500 ML IV ONE (15:15)
[2016-06-05] MEDS ORDERED: CLOPIDOGREL BISULFATE 75 MG TABLET PO ONE (15:15)
[2016-06-05] MEDS ORDERED: ASPIRIN 325 MG TABLET PO ONE (15:15)
[2016-06-05] MEDS ORDERED: DIAZEPAM 5 MG TABLET PO PRN (15:15)
--- NOTE | 2016-06-05 18:04 | CARD ---
APPROVED REPORT Procedure(s) performed: Left Heart Catheterization PTCA with Stenting HISTORY The patient is a 65 year-old female with a history of : hypertension, dyslipidemia, family history of premature CAD. INDICATION The indication(s) include : unstable angina , chest pain. PROCEDURE NARRATIVE After obtaining informed consent the patient was brought to the [employer]. With the patient in supine position the right groin area was prepped and draped in the usual fashion. The area was infiltrated with Xylocaine to obtain topical anesthesia. A sheath was then inserted into the femoral artery with Seldinger technique. Views of the left coronary artery were then done with a left Brice catheter. Views of the right coronary artery were then done with a right Brice catheter. A pigtail catheter was then utilized to do a ventriculogram. We then carefully evaluated the left ventricular function and the coronary anatomy the patient. Findings: Coronaries: The left main is normal. The LAD has a diffuse proximal segment with tapering disease up to 95%. This segment was between the first diagonal and the third diagonal both of which were normal. There was a very small second diagonal present but it appeared to be To in between the LAD and the a ctual first feeling of the small diagonals are felt that this had been occluded for some time. The ci rcumflex is normal but the obtuse marginal is a bifurcating vessel that has an 85% area of stenosis. The right coronary artery is essentially normal. Ventriculogram: The left ventricular function is normal with an ejection fraction that was estimated to be about 65%. The left ventricular end-diastolic pressure was 14 mmHg and there was no gradient ac ross the aortic valve in the pullback. After this was evaluated I decided to proceed with attempting to stent the LAD and then depending on the results decide if we would proceed with attempting to open the obtuse marginal or to stage this f or stenting of the obtuse marginal at a later time. The patient was fully heparinized and during the procedure received aspirin, loading dose of Plavix, and Aggrastat IV Therefore a left guiding catheter was utilized to engage the left main. A guidewire was then advanced into the LAD and across the area of stenosis all the way to the distal segment of the LAD. A 2.5 mm balloon was advanced over the guidewire and multiple inflations were done throughout the are a of diffuse disease. The balloon was removed and then a 3.5 mm x 18 mm drug-eluting stent was then advanced over the guide wire and once I was satisfied with its positioning this stent was deployed. Multiple high-pressure inflations were then done in the area. The balloon was then removed and a view was then done that showed that the previously dilated areas a ppear to be well opened there was no significant residual disease and no dissection was identified. T he patient had replication of her chest pains when the balloon was inflated. She had tolerated the procedure rather well therefore I decided to proceed with stenting of the obtus e marginal branch. The guidewire was then pulled back and re-advanced this time into the circumflex and then the obtuse marginal. I crossed the area of stenosis in the obtuse marginal and once the guidewire was distal to that a 3.0 mm x 15 mm drug-eluting stent was then brought over the guidewire. Once I was satisfied with the positioning of the stent multiple high-pressure inflations were done in the area to deploy the stent. The balloon was then removed and views were then done. I then saw that no significant residual disease was present, there was excellent flow through the are a and no dissection was identified. An ACT was checked and was found to be above 400 therefore the sheath was sutured in place and a dres sing was applied to the groin. The patient was then transferred back to her room in satisfactory cond ition after tolerating the procedure rather well. Conclusion This patient had unstable angina with significant disease of the LAD as well as the obtuse marginal b ranch of the circumflex. Both areas were stented with good results. I would like to continue with the present anticoagulation with heparin and Aggrastat and then DC the heparin in a few hours and DC the groin line in the morning. She will need to be on aspirin for life and Plavix for at least 1 year.
[2016-06-05] MEDS ORDERED: MORPHINE SULFATE 2 MG/ML DISP.SYRIN. IV PRN (19:00)
[2016-06-05] MEDS ORDERED: DEXTROSE 50% 25 GM / 50ML DISP.SYRIN. IV PRN (19:00)
[2016-06-05] MEDS ORDERED: ALBUTEROL SULFATE 2.5 MG/3 ML NEBU. NEB PRN (19:00)
[2016-06-05] MEDS ORDERED: MAGNESIUM SULFATE 2GM 50 ML IV ONE (19:00)
[2016-06-05] MEDS ORDERED: HYDROCODONE/APAP 5/325MG TABLET. PO PRN (19:00)
--- NOTE | 2016-06-05 19:14 | PDOC ---
Provider Note Provider Note Admission H&P dictation # Impression: 1. Unstable angina with 2 vessel coronary artery disease status post stent 2: 2. Diabetes mellitus type 2: 3. Hyperlipidemia: 4. Hypertension: 5. Obesity: 6. ISAEL SANDOVAL MD Jun 05, 2016 19:14
[2016-06-05] MEDS: CYCLOBENZAPRINE 10 MG TABLET. PO SCH (21:16)
[2016-06-05] MEDS: HYDROXYCHLOROQUINE 200 MG TABLET PO SCH (21:16)
[2016-06-05] MEDS: VERAPAMIL SR 180 MG TABLET.ER. PO SCH (21:17)
[2016-06-05] MEDS: INSULIN DETEMIR 300 UNITS/3 ML INSULN.PEN. SQ SCH (21:19)
[2016-06-06 02:16] VITALS: BP 136/61
[2016-06-06] MEDS: OXYCODONE/APAP 5/325 TABLET. PO PRN ×2 (05:22→10:57)
[2016-06-06] MEDS: CYCLOBENZAPRINE 10 MG TABLET. PO PRN ×2 (05:22→10:56)
[2016-06-06] MEDS: IV 1/2 NORMAL SALINE 1,000 ML IV SCH ×2 (05:32→21:20)
[2016-06-06 07:00] VITALS: BP 132/63
[2016-06-06 07:11] LABS: CALCIUM 8.8 mg/dL (8.5-10.1); CREATININE 1.1 mg/dL (0.6-1.0); GFR 49.7
[2016-06-06 07:12] LABS: CHOLESTEROL/HDL RATIO 2.4
--- NOTE | 2016-06-06 08:19 | PDOC ---
SUBJECTIVE Subjective No shortness of breath. No significant chest pain with just minimal tinge of pain once or twice. Having some back pain from having to lay flat. Medication is helping with that. No groin pain. Tolerating her diet okay. OBJECTIVE Vital Signs Vital Signs Date Time Temp Pulse Resp B/P Pulse Ox O2 Delivery O2 Flow Rate FiO2 06/06/16 02:25 18 95 Room Air 06/06/16 02:16 98.2 79 18 136/61 95 Room Air 98.2 06/05/16 23:07 98.1 78 16 123/53 94 Room Air 98.1 06/05/16 22:13 Room Air 06/05/16 22:00 Room Air 06/05/16 21:20 16 96 Room Air 06/05/16 21:17 82 143/66 06/05/16 19:42 98.3 82 20 143/66 94 Room Air 98.3 06/05/16 18:56 82 143/63 06/05/16 17:56 77 154/60 06/05/16 16:56 80 158/72 06/05/16 15:56 75 156/66 06/05/16 15:37 98.1 75 18 160/62 94 Room Air 98.1 06/05/16 15:26 77 153/72 06/05/16 15:11 78 165/90 06/05/16 14:56 80 160/62 06/05/16 14:41 76 145/74 06/05/16 14:26 79 136/64 06/05/16 14:08 73 16 95 Room Air 06/05/16 13:59 16 Nasal Cannula 2.0 06/05/16 12:35 Room Air 06/05/16 11:55 98 Room Air 06/05/16 11:54 71 148/59 06/05/16 11:27 97.0 71 18 148/59 98 Room Air 97.0 06/05/16 10:41 Room Air 06/05/16 09:39 Room Air I & O Intake and Output 06/06/16 06:59 Intake Total 1398 ml Output Total 1800 ml Balance -402 ml Intake Oral 280 ml Other 1118 ml Output Urine Total 1800 ml PHYSICAL EXAM Physical Exam General: No acute distress. Laying in bed Mental status: Alert and oriented. Chest: Clear to auscultation. Good air movement CV: Normal rate. Regular rhythm. No murmur. Abdomen: Normal bowel sounds. Soft. Not distended. No tenderness. No guarding. No rebound. Groin site is dry and intact with a dressing in place. Minimal bruising. No swelling. Extremities: No lower extremity edema. ASSESSMENT/PLAN Assessment/Plan 1. Unstable angina with 2 vessel coronary artery disease status post stent 2: Doing well. Continue per cardiology. Medication adjustment for blood pressure per their recommendations. 2. Diabetes mellitus type 2: Running a little bit high but she's not on her usual regimen due to S not having her typical medication. Anticipate this will return back to the better control when she begins her usual home medications at home. Continue current medications for now a sliding scale insulin. 3. Hyperlipidemia: Will increase her atorvastatin 40 mg until he find out what her lipid panel looks like. 4. Hypertension: Medication adjustment per cardiology's recommendations if needed. 5. Obesity: Stable. 6. Disposition: Plan for discharge to home, probably tomorrow Problems: COMMENT Lab Laboratory Tests Test 06/05/16 11:00 06/05/16 13:50 06/05/16 14:37 06/05/16 17:21 Troponin I Quantitative 0.027ng/mL (0.000-0.055) Activated Clotting Time 482sec (92-181) Glucose (Fingerstick) 157mg/dL (70-99) 221mg/dL (70-99) Test 06/05/16 20:43 06/06/16 05:40 06/06/16 07:48 Glucose (Fingerstick) 182mg/dL (70-99) 238mg/dL (70-99) Sodium Level 132mmol/L (136-145) Potassium Level 4.0mmol/L (3.5-5.1) Chloride Level 97mmol/L (98-107) Carbon Dioxide Level 26mmol/L (21-32) Anion Gap 9 (6-14) Blood Urea Nitrogen 14mg/dL (7-20) Creatinine 1.1mg/dL (0.6-1.0) Estimated GFR (Cockcroft-Gault) 49.7 Glucose Level 230mg/dL (70-99) Calcium Level 8.8mg/dL (8.5-10.1) Magnesium Level 2.0mg/dL (1.8-2.4) Triglycerides Level 98mg/dL (0-150) Cholesterol Level 85mg/dL (0-200) LDL Cholesterol, Calculated 29mg/dL (0-100) VLDL Cholesterol, Calculated 20mg/dL (0-40) Non-HDL Cholesterol Calculated 49mg/dL (0-129) HDL Cholesterol 36mg/dL (40-60) Cholesterol/HDL Ratio 2.4 ISAEL SANDOVAL MD Jun 06, 2016 08:19
[2016-06-06] MEDS ORDERED: NON FORMULARY ITEM (Metoprolol Succinate (Toprol Xl) 1 TAB) PO SCH (09:00)
[2016-06-06] MEDS: ATORVASTATIN CALCIUM 10 MG TABLET. PO SCH (09:01)
[2016-06-06] MEDS: ASPIRIN 325 MG TABLET PO SCH (09:02)
[2016-06-06] MEDS: HYDROXYCHLOROQUINE 200 MG TABLET PO SCH ×2 (09:02→21:43)
[2016-06-06] MEDS: CLOPIDOGREL BISULFATE 75 MG TABLET PO SCH (09:02)
[2016-06-06] MEDS: VERAPAMIL SR 180 MG TABLET.ER. PO SCH ×2 (09:03→21:43)
[2016-06-06] MEDS: INSULIN ASPART 300 UNITS/3 ML INSULN.PEN SQ SCH ×6 (09:04→18:26)
[2016-06-06] MEDS ORDERED: METOPROLOL SUCC 24HR ER 50 MG TAB.ER.24H. PO SCH (10:00)
[2016-06-06 10:26] VITALS: BP 133/68
[2016-06-06] MEDS: LOSARTAN POTASSIUM 50 MG TABLET. PO SCH (13:03)
[2016-06-06 14:51] VITALS: BP 147/58
--- NOTE | 2016-06-06 15:08 | PDOC ---
PROGRESS NOTES Subjective Subjective POD #1 from heart cath with 2 stent placement. Pt reports she is having low back pain from having to lay flat for so long. Pt denies any chest pain or SOB currently. Objective Objective Vital Signs Date Time Temp Pulse Resp B/P Pulse Ox O2 Delivery O2 Flow Rate FiO2 06/06/16 14:51 97.9 73 20 147/58 96 Room Air 97.9 06/06/16 12:56 2.0 Intake and Output 06/06/16 06:59 Intake Total 1398 ml Output Total 1800 ml Balance -402 ml Intake Oral 280 ml Other 1118 ml Output Urine Total 1800 ml Physical Exam Abdomen: Normal bowel sounds, Soft, No tenderness Heart: Regular rate, Normal S1, Normal S2 Extremities: No clubbing, No edema General: Alert, Oriented X3, Cooperative, No acute distress HEENT: Atraumatic, PERRLA Lungs: Clear to auscultation, Normal air movement MUSCULOSKELETAL: Other (Right femoral incision site looks good. No hematoma or bleeding present) Neck: Supple Psych/Mental Status: Mental status NL Assessment Assessment Problems Medical Problems: (1) Chest pain Status: Acute Assessment: - Unstable angina with significant disease of LAD and obtuse marginal branch of circumflex; s/p stents in both - Hx of HTN - Hx of HLD - Hx of DM1 - Hx of Pleurisy Plan Plan of Care Assessment: - Chest pain, r/o ACS, possible unstable angina - Hx of HTN - Hx of HLD - Hx of DM1 - Hx of Pleurisy Plan: - POD #1 of PTCA/stent placement - ACT today = 172 - Continue to lay flat until 1800. - Will discontinue her nitro drip - Will start Metoprolol 50 mg BID - Will start Losartan 50mg daily - Will continue to monitor her while she is in the hospital Thank you for your consultation and allowing me to participate in the care of this patient! Comment Review of Relevant I have reviewed the following items maxim (where applicable) has been applied. Labs Laboratory Tests Test 06/05/16 04:40 06/05/16 11:00 06/05/16 13:50 06/05/16 14:37 White Blood Count 8.2x10^3/uL (4.0-11.0) Red Blood Count 4.49x10^6/uL (3.50-5.40) Hemoglobin 13.0g/dL (12.0-15.5) Hematocrit 38.8% (36.0-47.0) Mean Corpuscular Volume 86fL (79-100) Mean Corpuscular Hemoglobin 29pg (25-35) Mean Corpuscular Hemoglobin Concent 34g/dL (31-37) Red Cell Distribution Width 13.3% (11.5-14.5) Platelet Count 255x10^3/uL (140-400) Neutrophils (%) (Auto) 73% (31-73) Lymphocytes (%) (Auto) 17% (24-48) Monocytes (%) (Auto) 7% (0-9) Eosinophils (%) (Auto) 3% (0-3) Basophils (%) (Auto) 1% (0-3) Neutrophils # (Auto) 6.0x10^3uL (1.8-7.7) Lymphocytes # (Auto) 1.4x10^3/uL (1.0-4.8) Monocytes # (Auto) 0.6x10^3/uL (0.0-1.1) Eosinophils # (Auto) 0.2x10^3/uL (0.0-0.7) Basophils # (Auto) 0.1x10^3/uL (0.0-0.2) Prothrombin Time 14.2SEC (11.7-14.0) Prothromb Time International Ratio 1.2 (0.8-1.1) D-Dimer (Zoya) 0.51ug/mlFEU (0.00-0.50) Sodium Level 138mmol/L (136-145) Potassium Level 4.1mmol/L (3.5-5.1) Chloride Level 101mmol/L (98-107) Carbon Dioxide Level 28mmol/L (21-32) Anion Gap 9 (6-14) Blood Urea Nitrogen 20mg/dL (7-20) Creatinine 1.1mg/dL (0.6-1.0) Estimated GFR (Cockcroft-Gault) 49.7 Glucose Level 204mg/dL (70-99) Calcium Level 9.5mg/dL (8.5-10.1) Magnesium Level 1.5mg/dL (1.8-2.4) Troponin I Quantitative < 0.017ng/mL (0.000-0.055) 0.027ng/mL (0.000-0.055) CA-Vtu-Y-Type Natriuretic Peptide 114pg/mL (0-124) Activated Clotting Time 482sec (92-181) Glucose (Fingerstick) 157mg/dL (70-99) Test 06/05/16 17:21 06/05/16 20:43 06/06/16 05:40 06/06/16 07:48 Glucose (Fingerstick) 221mg/dL (70-99) 182mg/dL (70-99) 238mg/dL (70-99) Sodium Level 132mmol/L (136-145) Potassium Level 4.0mmol/L (3.5-5.1) Chloride Level 97mmol/L (98-107) Carbon Dioxide Level 26mmol/L (21-32) Anion Gap 9 (6-14) Blood Urea Nitrogen 14mg/dL (7-20) Creatinine 1.1mg/dL (0.6-1.0) Estimated GFR (Cockcroft-Gault) 49.7 Glucose Level 230mg/dL (70-99) Calcium Level 8.8mg/dL (8.5-10.1) Magnesium Level 2.0mg/dL (1.8-2.4) Triglycerides Level 98mg/dL (0-150) Cholesterol Level 85mg/dL (0-200) LDL Cholesterol, Calculated 29mg/dL (0-100) VLDL Cholesterol, Calculated 20mg/dL (0-40) Non-HDL Cholesterol Calculated 49mg/dL (0-129) HDL Cholesterol 36mg/dL (40-60) Cholesterol/HDL Ratio 2.4 Test 06/06/16 10:29 06/06/16 11:46 Glucose (Fingerstick) 195mg/dL (70-99) Activated Clotting Time 173sec (92-181) Laboratory Tests Test 06/05/16 17:21 06/05/16 20:43 06/06/16 05:40 06/06/16 07:48 Glucose (Fingerstick) 221mg/dL (70-99) 182mg/dL (70-99) 238mg/dL (70-99) Sodium Level 132mmol/L (136-145) Potassium Level 4.0mmol/L (3.5-5.1) Chloride Level 97mmol/L (98-107) Carbon Dioxide Level 26mmol/L (21-32) Anion Gap 9 (6-14) Blood Urea Nitrogen 14mg/dL (7-20) Creatinine 1.1mg/dL (0.6-1.0) Estimated GFR (Cockcroft-Gault) 49.7 Glucose Level 230mg/dL (70-99) Calcium Level 8.8mg/dL (8.5-10.1) Magnesium Level 2.0mg/dL (1.8-2.4) Triglycerides Level 98mg/dL (0-150) Cholesterol Level 85mg/dL (0-200) LDL Cholesterol, Calculated 29mg/dL (0-100) VLDL Cholesterol, Calculated 20mg/dL (0-40) Non-HDL Cholesterol Calculated 49mg/dL (0-129) HDL Cholesterol 36mg/dL (40-60) Cholesterol/HDL Ratio 2.4 Test 06/06/16 10:29 06/06/16 11:46 Glucose (Fingerstick) 195mg/dL (70-99) Activated Clotting Time 173sec (92-181) Medications Current Medications Fentanyl Citrate (Fentanyl 2ml Vial) 50 mcg PRN Q15MIN PRN IV PAIN GREATER THAN 3/10 Last administered on 06/05/16 09:39; Start 06/05/16 at 03:45; Stop at 03:44; Status DC Multi-Ingredient Mouthwash/Gargle (Gi Cocktail Single Dose) 15 ml 1X ONCE SWSW Last administered on 06/05/16 04:24; Start 06/05/16 at 03:45; Stop 06/05/16 at 03:46; Status DC Ondansetron HCl (Zofran) 4 mg PRN Q8HRS PRN IV NAUSEA/VOMITING Last administered on 06/05/16 21:19; Start 06/05/16 at 05:30; Stop 06/06/16 at 05:29 ; Status DC Morphine Sulfate 4 mg PRN Q2HR PRN IV PAIN Last administered on 06/05/16 11:55 ; Start 06/05/16 at 05:30; Stop 06/06/16 at 05:29; Status DC Acetaminophen (Tylenol) 650 mg PRN Q4HRS PRN PO FEVER; Start 06/05/16 at 05:30 ; Stop 06/06/16 at 05:29; Status DC Nitroglycerin 0.4 mg 0.4 mg PRN Q5MIN PRN SL CHEST PAIN Last administered on 11:54; Start 06/05/16 at 05:30; Stop 06/06/16 at 05:29; Status DC Sodium Chloride (Iv Sodium Chloride 0.45%) 1,000 ml @ 60 mls/hr [id number] IV Last administered on 06/06/16 05:32; Start 06/05/16 at 12:00 Lidocaine HCl 20 ml 20 ml STK-MED ONCE .ROUTE ; Start 06/05/16 at 12:45; Stop at 12:46; Status DC Heparin Sodium/ Sodium Chloride 500 ml @ As Directed STK-MED ONCE .ROUTE ; Start 06/05/16 at 12:45; Stop 06/05/16 at 12:46; Status DC Iohexol (Omnipaque 300 Mg/ml) 100 ml STK-MED ONCE .ROUTE ; Start 06/05/16 at 12: 45; Stop 06/05/16 at 12:46; Status DC Midazolam HCl (Versed) 5 mg STK-MED ONCE .ROUTE ; Start 06/05/16 at 12:52; Stop 06/05/16 at 12:53; Status DC Fentanyl Citrate (Fentanyl 5ml Vial) 250 mcg STK-MED ONCE .ROUTE ; Start at 12:52; Stop 06/05/16 at 12:53; Status DC Midazolam HCl (Versed) 2 mg STK-MED ONCE .ROUTE ; Start 06/05/16 at 12:58; Stop 06/05/16 at 12:59; Status DC Fentanyl Citrate (Fentanyl 2ml Vial) 100 mcg STK-MED ONCE .ROUTE ; Start at 12:58; Stop 06/05/16 at 12:59; Status DC Heparin Sodium/ Sodium Chloride 1,000 unit 1X ONCE IART Last administered on 13:59; Start 06/05/16 at 13:15; Stop 06/05/16 at 13:30; Status DC Midazolam HCl (Versed) 2 mg 1X ONCE IV Last administered on 06/05/16 13:58; Start 06/05/16 at 13:15; Stop 06/05/16 at 13:30; Status DC Fentanyl Citrate (Fentanyl 2ml Vial) 100 mcg 1X ONCE IV Last administered on 13:59; Start 06/05/16 at 13:15; Stop 06/05/16 at 13:30; Status DC Iohexol (Omnipaque 300 Mg/ml) 100 ml 1X ONCE IART Last administered on 13:59; Start 06/05/16 at 13:15; Stop 06/05/16 at 13:30; Status DC Lidocaine HCl 20 ml 1X ONCE IJ Last administered on 06/05/16 13:58; Start at 13:15; Stop 06/05/16 at 13:30; Status DC Heparin Sodium (Porcine) (Heparin Sodium) 10,000 unit STK-MED ONCE .ROUTE ; Start 06/05/16 at 13:18; Stop 06/05/16 at 13:19; Status DC Heparin Sodium (Porcine) 70929 unit 10,000 unit 1X ONCE IV Last administered on 06/05/16 14:06; Start 06/05/16 at 13:30; Stop 06/05/16 at 13:31; Status DC Tirofiban/Sodium Chloride 250 ml @ As Directed STK-MED ONCE IV ; Start at 13:22; Stop 06/05/16 at 13:23; Status DC Tirofiban/Sodium Chloride (Aggrastat 12.5 Mg/250 ml Premix) 250 ml @ 0 mls/hr CONT PRN IV PER PROTOCOL; Start 06/05/16 at 13:45; Stop 06/06/16 at 08:31; Status DC Iohexol (Omnipaque 300 Mg/ml) 100 ml STK-MED ONCE .ROUTE ; Start 06/05/16 at 13: 42; Stop 06/05/16 at 13:43; Status DC Heparin Sodium (Porcine) 03010 unit 10,000 unit STK-MED ONCE .ROUTE ; Start at 13:42; Stop 06/05/16 at 13:43; Status DC Nitroglycerin/ Dextrose 250 ml @ As Directed STK-MED ONCE IV ; Start 06/05/16 at 13:51; Stop 06/05/16 at 13:52; Status DC Nitroglycerin/ Dextrose 250 ml @ 0 mls/hr CONT PRN IV SEE I/O RECORD; Start at 14:00 Heparin Sodium/ Dextrose 500 ml @ 20 mls/hr 1X ONCE IV Last administered on 15:15; Start 06/05/16 at 15:15; Stop 06/06/16 at 08:31; Status DC Aspirin (Felix Aspirin) 325 mg 1X ONCE PO Last administered on 06/05/16 15:34 ; Start 06/05/16 at 15:15; Stop 06/05/16 at 15:23; Status DC Aspirin (Felix Aspirin) 325 mg DAILYWBKFT PO Last administered on 06/06/16 09: 02; Start 06/06/16 at 08:00 Clopidogrel Bisulfate (Plavix) 300 mg 1X ONCE PO Last administered on 15:35; Start 06/05/16 at 15:15; Stop 06/05/16 at 15:23; Status DC Clopidogrel Bisulfate (Plavix) 75 mg DAILYWBKFT PO Last administered on 09:02; Start 06/06/16 at 08:00 Diazepam (Valium) 5 mg PRN Q6HRS PRN PO ANXIETY; Start 06/05/16 at 15:15 Oxycodone/ Acetaminophen (Percocet 5/325) 1 tab PRN Q6HRS PRN PO MODERATE PAIN Last administered on 06/06/16 10:57; Start 06/05/16 at 15:15 Cyclobenzaprine HCl (Flexeril) 10 mg PRN Q6HRS PRN PO MUSCLE SPASMS Last administered on 06/06/16 10:56; Start 06/05/16 at 15:15 Atorvastatin Calcium (Lipitor) 40 mg DAILY PO Last administered on 06/06/16 09 :01; Start 06/06/16 at 09:00 Cyclobenzaprine HCl (Flexeril) 10 mg QHS PO Last administered on 06/05/16 21: 16; Start 06/05/16 at 21:00 Acetaminophen/ Hydrocodone Bitart (Lortab 5/325) 1 tab PRN Q6HRS PRN PO MILD PAIN Last administered on 06/06/16 02:25; Start 06/05/16 at 19:00 Hydroxychloroquine Sulfate (Plaquenil) 200 mg BID PO Last administered on 09:02; Start 06/05/16 at 21:00 Insulin Aspart (Novolog) 15 units TIDBFRMEAL SQ Last administered on 06/06/16 12:56; Start 06/06/16 at 07:30 Non-Formulary Medication 1 tab DAILY PO ; Start 06/06/16 at 09:00; Stop at 09:46; Status DC Verapamil HCl (Calan Sr) 180 mg BID PO Last administered on 06/06/16 09:03; Start 06/05/16 at 21:00 Insulin Detemir (Levemir) 30 units QHS SQ Last administered on 06/05/16 21:19 ; Start 06/05/16 at 21:00 Insulin Aspart (Novolog) 0-7 UNITS TIDWMEALS SQ Last administered on 06/06/16 12:56; Start 06/06/16 at 08:00 Dextrose (Dextrose 50%-Water Syringe) 12.5 gm PRN Q15MIN PRN IV SEE COMMENTS; Start 06/05/16 at 19:00 Morphine Sulfate 2 mg PRN Q2HR PRN IV SEVERE PAIN Last administered on 21:20; Start 06/05/16 at 19:00 Acetaminophen (Tylenol) 650 mg PRN Q6HRS PRN PO PAIN; Start 06/05/16 at 19:00 Albuterol Sulfate 2.5 mg 2.5 mg PRN Q4HRS PRN NEB SHORTNESS OF BREATH; Start at 19:00 Magnesium Sulfate/ Dextrose (Magnesium Sulfate PREMIX 2GM) 50 ml @ 25 mls/hr 1X ONCE IV Last administered on 06/05/16 21:21; Start 06/05/16 at 19:00; Stop 06/05/16 at 20:59; Status DC Metoprolol Succinate (Toprol Xl) 50 mg DAILY PO Last administered on 06/06/16 10:58; Start 06/06/16 at 10:00; Stop 06/06/16 at 12:18; Status DC Metoprolol Tartrate (Lopressor) 50 mg BID PO ; Start 06/06/16 at 21:00 Losartan Potassium (Cozaar) 50 mg DAILY PO Last administered on 06/06/16 13:03 ; Start 06/06/16 at 13:00 Active Scripts Active [place] 5-325 Tablet (Acetaminophen/Hydrocodone Bitart) 1 Each Tablet 1 Tab PO PRN Q6HRS PRN Reported Toprol Xl (Metoprolol Succinate) 50 Mg Tab.er.24h 1 Tab PO DAILY Atorvastatin Calcium 10 Mg Tablet 1 Tab PO DAILY Cyclobenzaprine Hcl 10 Mg Tablet 1 Tab PO QHS Novolin N (Nph, Human Insulin Isophane) 100 Unit/1 Ml Vial 43 Unit SQ BID Novolin R (Insulin Regular, Human) 100 Unit/1 Ml Vial 15 Unit SQ TIDWMEALS Verapamil Sr (Verapamil HCl) 180 Mg Cap24h.pel 180 Mg PO BID Hydrochlorothiazide Tablet (Hydrochlorothiazide) 12.5 Mg Tablet 12.5 Mg PO DAILY Hydroxychloroquine Sulfate 200 Mg Tablet 200 Mg PO BID Hydralazine Hcl 50 Mg Tablet 1 Tab PO BID Losartan Potassium 100 Mg Tablet 100 Mg PO Vitals/I & O Vital Sign - Last 24 Hours 06/05/16 06/05/16 06/05/16 06/05/16 15:11 15:26 15:37 15:56 Temp 98.1 98.1 Pulse 78 77 75 75 Resp 18 B/P 165/90 153/72 160/62 156/66 Pulse Ox 94 O2 Delivery Room Air 06/05/16 06/05/16 06/05/16 06/05/16 16:56 17:56 18:56 19:42 Temp 98.3 98.3 Pulse 80 77 82 82 Resp 20 B/P 158/72 154/60 143/63 143/66 Pulse Ox 94 O2 Delivery Room Air 06/05/16 06/05/16 06/05/16 06/05/16 21:17 21:20 22:00 22:13 Pulse 82 Resp 16 B/P 143/66 Pulse Ox 96 O2 Delivery Room Air Room Air Room Air 06/05/16 06/06/16 06/06/16 06/06/16 23:07 02:16 02:25 07:00 Temp 98.1 98.2 98.0 98.1 98.2 98.0 Pulse 78 79 79 Resp 16 18 18 20 B/P 123/53 136/61 132/63 Pulse Ox 94 95 95 94 O2 Delivery Room Air Room Air Room Air Room Air 06/06/16 06/06/16 06/06/16/27/17 08:00 09:03 10:26 10:57 Temp 97.7 97.7 Pulse 79 84 Resp 21 B/P 132/63 133/68 Pulse Ox 95 O2 Delivery Room Air Room Air Room Air 06/06/16 06/06/16 06/06/16 06/06/16 10:58 12:56 13:03 14:51 Temp 97.9 97.9 Pulse 84 74 73 Resp 20 B/P 133/68 134/58 147/58 Pulse Ox 95 96 O2 Delivery Room Air Room Air O2 Flow Rate 2.0 Intake and Output 06/05/16 06/05/16 06/06/16 14:59 22:59 06:59 Intake Total 280 ml 1118 ml Output Total 700 ml 1100 ml Balance -420 ml 18 ml KELL MANJARREZ MD Jun 06, 2016 15:08
[2016-06-06 19:32] VITALS: BP 116/66
[2016-06-06] MEDS: CYCLOBENZAPRINE 10 MG TABLET. PO SCH (21:43)
[2016-06-06] MEDS: METOPROLOL TART IMMED RELEASE 50 MG TABLET. PO SCH (21:44)
[2016-06-06] MEDS: INSULIN DETEMIR 300 UNITS/3 ML INSULN.PEN. SQ SCH (21:47)
[2016-06-06 23:50] VITALS: BP 118/53
[2016-06-07 03:24] VITALS: BP 109/57
--- NOTE | 2016-06-07 07:21 | DISCH ---
DISCHARGE INSTRUCTIONS Condition on Discharge Condition on Discharge: Stable Activity After Discharge Activity Instructions for Disc: Activity as tolerated Diet after Discharge Diet after Discharge: Cardiac, Diabetic No Calorie Level Checks after Discharge Checks after discharge: Check blood press - daily, Check blood sugar, ac/hs Contacting the DRThom after DC Call your doctor for: If your condition worsens Follow-Up Follow up with: Dr Rossi in 1-2 weeks Follow Up With: Dr Pacheco per his rec ISAEL SANDOVAL MD Jun 07, 2016 07:21
[2016-06-07] MEDS ORDERED: LOSA50TA6 PO (07:28)
[2016-06-07] MEDS ORDERED: ASPI325T4 PO (07:28)
[2016-06-07] MEDS ORDERED: CLOP75TA PO (07:28)
[2016-06-07] MEDS ORDERED: METO50TA2 PO (07:28)
--- NOTE | 2016-06-07 07:29 | PDOC ---
Provider Note Provider Note See discharge summary dictation # ISAEL SANDOVAL MD Jun 07, 2016 07:28
[2016-06-07 07:36] VITALS: BP 136/69
[2016-06-07] MEDS: LOSARTAN POTASSIUM 50 MG TABLET. PO SCH (09:08)
[2016-06-07] MEDS: HYDROXYCHLOROQUINE 200 MG TABLET PO SCH (09:08)
[2016-06-07] MEDS: ASPIRIN 325 MG TABLET PO SCH (09:08)
[2016-06-07] MEDS: ATORVASTATIN CALCIUM 10 MG TABLET. PO SCH (09:08)
[2016-06-07] MEDS: VERAPAMIL SR 180 MG TABLET.ER. PO SCH (09:08)
[2016-06-07 09:09] VITALS: BP 136/69
[2016-06-07] MEDS: INSULIN ASPART 300 UNITS/3 ML INSULN.PEN SQ SCH ×2 (09:09→09:11)
[2016-06-07] MEDS: METOPROLOL TART IMMED RELEASE 50 MG TABLET. PO SCH (09:09)
[2016-06-07] MEDS: CLOPIDOGREL BISULFATE 75 MG TABLET PO SCH (09:09)
== END 2016-06-07 10:00 | disposition home or self-care (01) | DRG 247 ==
LOC: ER 03:20 → 2 NORTH 03:30
PROVIDERS: ADMIT Family Medicine; ATTEND Family Medicine
PROC: 027135Z Dilation of Coronary Artery, Two Arteries with Two Drug-eluting Intraluminal Devices, Percutaneous Approach (ICD-10-PCS; principal; 2016-06-05)
PROC: 4A023N7 Measurement of Cardiac Sampling and Pressure, Left Heart, Percutaneous Approach (ICD-10-PCS; 2016-06-05)
PROC: B2151ZZ Fluoroscopy of Left Heart using Low Osmolar Contrast (ICD-10-PCS; 2016-06-05)
PROC: B2111ZZ Fluoroscopy of Multiple Coronary Arteries using Low Osmolar Contrast (ICD-10-PCS; 2016-06-05)
DX: I25.110 Atherosclerotic heart disease of native coronary artery with unstable angina pectoris (principal); Z68.41 Body mass index [BMI] 40.0-44.9, adult; E10.9 Type 1 diabetes mellitus without complications; E66.9 Obesity, unspecified; E78.00 Pure hypercholesterolemia, unspecified; E78.5 Hyperlipidemia, unspecified; I10 Essential (primary) hypertension; J45.909 Unspecified asthma, uncomplicated; M79.1 Myalgia; Z96.659 Presence of unspecified artificial knee joint; M19.90 Unspecified osteoarthritis, unspecified site; Z88.0 Allergy status to penicillin; Z95.5 Presence of coronary angioplasty implant and graft; Z79.899 Other long term (current) drug therapy; Z82.3 Family history of stroke; Z79.4 Long term (current) use of insulin; Z90.710 Acquired absence of both cervix and uterus; Z90.49 Acquired absence of other specified parts of digestive tract
CPT/HCPCS: 36415; 71020; 80048; 80061; 82947; 83735; 83880; 84484; 85027; 85347; 85379; 85610; 92928; 93005; 93458; C1725; C1769; C1874; C1887; C1892; J1815; J2250; J2270; J2405; J3010; J7060; Q9967; 99285-25; J3246

== ENCOUNTER → 2016-08-06 | Outpatient (CLI) | payer BC ==
[~2016-08-06] MED LIST changes: +ASPI325T8 PO; +ATOR10TA60 PO; +CLOP75TA PO; +CYCL10TA2 PO; -HYDR-2666 PO; +HYDR-2758 PO; +HYDR12.58 PO; +HYDR200T5 PO; +INSU100V11 SQ; +IOHEXOL 300 MG/ML 100ML VIAL. IV ONE; +LOSA50TA6 PO; +METO-269 PO; +METO50TA2 PO; +NPH,100V5 SQ; +PERM60CR12 TP; +VERA180C4 PO; -VERA180T4 PO; +VERA180T49 PO
--- NOTE | 2016-08-06 13:16 | KCIC ---
CTA chest with contrast Indication: . Shortness of breath. Dyspnea on exertion. Symptoms since May. Comparison: No comparison is available. Technique: After bolus of intravenous contrast, CT imaging was performed of the chest. MIP reconstructions were obtained. Exposure: One or more of the following individualized dose reduction techniques were utilized for this examination: 1. Automated exposure control 2. Adjustment of the mA and/or kV according to patient size 3. Use of iterative reconstruction technique. Findings: No evidence of pulmonary embolism. No evidence of aortic aneurysm or dissection. No significant lymph node enlargement. Coronary artery calcifications No pericardial effusion. No pleural effusion. No focal airspace consolidation. No evidence of pneumothorax. There are several tiny subpleural noncalcified nodules in both lungs measuring up to 3 mm. No dominant mass. Trachea and central airways are patent. The visualized spine demonstrates degenerative spondylosis. Multilevel spinal stenosis at the visualized cervical, thoracic and lumbar spine, moderate to severe at some levels. Degenerative changes at the barely visualized shoulders. Scans through the upper abdomen are limited without visceral enhancement and oral contrast. There is a densely calcified nodule in the liver. Spleen borderline enlarged, 12.7 cm. IMPRESSION: 1. Negative for pulmonary embolism or acute abnormality in the chest. 2. Several tiny subpleural nodules in both lungs, questionable significance. 3. Diffuse cervical, thoracic and lumbar spondylosis in the visualized spine, with areas of moderate to severe spinal stenosis. 4. Borderline enlargement of the spleen. Electronically signed by: Ramu Jimenes MD (08/06/2016 1:13 PM)
== END | disposition home or self-care (01) ==
LOC: KCIC CT 08:29
PROVIDERS: ATTEND Family Medicine
DX: R91.1 Solitary pulmonary nodule (principal); M47.895 Other spondylosis, thoracolumbar region; R16.1 Splenomegaly, not elsewhere classified
CPT/HCPCS: 71275; 82565; Q9967

== ENCOUNTER → 2017-02-19 | Outpatient (CLI) | payer MEDICARE | END | disposition home or self-care (01) | LOC: KCIC 12:31 | DX: M19.042 Primary osteoarthritis, left hand (principal); M19.041 Primary osteoarthritis, right hand | CPT/HCPCS: 73130 ==

== ENCOUNTER 2018-04-19 12:46 | Inpatient (IN) | payer MEDICARE ==
[~2018-04-19] VITALS: Ht 165.1 cm; Wt 111.3 kg
[~2018-04-19 12:46] MED LIST changes: -HYDR-2758 PO; +HYDR-2761 PO; +HYDR-3164 PO; -HYDR-971 PO; -IOHEXOL 300 MG/ML 100ML VIAL. IV ONE; +LOSA-73 PO; +LOSA100T14 PO; -LOSA100T6 PO; -LOSA50TA6 PO; -METO50TA2 PO; +METO50TA6 PO; +RANI-376 PO; -RANI150T6 PO; -VERA180T49 PO; +VERA180T6 PO
[2018-04-19] MEDS ORDERED: IV NORMAL SALINE 1000ML BAG 1,000 ML IV SCH (14:24)
[2018-04-19] MEDS ORDERED: ONDANSETRON PF 4 MG/2 ML VIAL. IV ONE (14:30)
[2018-04-19 14:37] LABS: BILIRUBIN,URINE NEGATIVE (NEG); CLARITY,URINE CLEAR; COLOR,URINE YELLOW; NITRITE,URINE NEGATIVE (NEG); PH,URINE 6.5; PROTEIN,URINE 30 mg/dL (NEG-TRACE)
[2018-04-19 14:44] LABS: RBC,URINE OCC /HPF (0-2)
[2018-04-19 14:45] LABS: BACTERIA,URINE FEW /HPF (0-FEW); SQUAMOUS EPITHELIAL CELL,UR MOD /LPF
[2018-04-19] MEDS ORDERED: HYOSCYAMINE 0.125 MG TAB.RAPDIS PO ONE (14:45)
--- NOTE | 2018-04-19 14:50 | PHYS DOC ---
Past Medical History Past Medical History: Arthritis, Diabetes-Type I, High Cholesterol, Hypertension Past Surgical History: Cholecystectomy, Hysterectomy, Knee Replacement, Other Additional Past Surgical Histo: RIGHT ROTATOR CUFF, NERVES IN NECK Alcohol Use: None Drug Use: None Adult General Chief Complaint Chief Complaint: FLANK PAIN HPI HPI Patient is a 67 year old female presents with right-sided abdominal pain that started yesterday. It has been getting worse over time. Onset with eating a cheese based dish. Patient has already had a cholecystectomy. Patient and family notes some bloating in the abdomen. This is new. No vomiting, there is some nausea, no diarrhea. Nothing seems to make the discomfort better or worse.[ ] Review of Systems Review of Systems Constitutional: Denies fever or chills [] Eyes: Denies change in visual acuity, redness, or eye pain [] HENT: Denies nasal congestion or sore throat [] Respiratory: Denies cough or shortness of breath [] Cardiovascular: No chest pain or palpitations[] GI: See history of present illness[] : Denies dysuria or hematuria [] Musculoskeletal: Denies back pain or joint pain [] Integument: Denies rash or skin lesions [] Neurologic: Denies headache, focal weakness or sensory changes [] Endocrine: Denies polyuria or polydipsia [] All other systems were reviewed and found to be within normal limits, except as documented in this note. Current Medications Current Medications Current Medications Medications (Trade) Dose Ordered Sig/Corin Start Time Stop Time Status Last Admin Dose Admin Hyoscyamine (Anaspaz) 0.125 mg ONCE ONCE 04/19/18 14:45 04/19/18 14:46 DC 04/19/18 15:17 0.125 MG Iohexol (Omnipaque 300 Mg/ml) 75 ml 1X ONCE 04/19/18 15:30 04/19/18 15:31 DC 04/19/18 15:59 75 ML Metoclopramide HCl (Reglan Vial) 10 mg 1X ONCE 04/19/18 16:30 04/19/18 16:31 DC 04/19/18 16:19 10 MG Morphine Sulfate (Morphine Sulfate) 4 mg PRN Q15MIN PRN 04/19/18 14:30 04/20/18 14:29 04/19/18 16:16 4 MG Ondansetron HCl (Zofran) 4 mg 1X ONCE 04/19/18 14:30 04/19/18 14:34 DC 04/19/18 15:14 4 MG Sodium Chloride 1,000 ml @ 100 mls/hr Q10H 04/19/18 14:24 04/20/18 00:23 04/19/18 15:17 100 MLS/HR Allergies Allergies Allergies Coded Allergies Type Severity Reaction Last Updated Verified Penicillins Allergy Intermediate 01/17/13 Yes Physical Exam Physical Exam Constitutional: Well developed, well nourished, no acute distress, non-toxic appearance. [] HENT: Normocephalic, atraumatic, bilateral external ears normal, oropharynx moist, no oral exudates, nose normal. [] Eyes: PERRLA, EOMI, conjunctiva normal, no discharge. [] Neck: Normal range of motion, no tenderness, supple, no stridor. [] Cardiovascular:Heart rate regular rhythm, no murmur [] Lungs & Thorax: Bilateral breath sounds clear to auscultation [] Abdomen: Bowel sounds normal, soft, tenderness in the right abdomen, sits up without any difficulty, no fluid wave, no specific Brandon's point tenderness and no McBurney's point tenderness, no rebound, no guarding, no rigidity, no masses, no pulsatile masses. [] Skin: Warm, dry, no erythema, no rash. [] Back: No tenderness, no CVA tenderness. [] Extremities: No tenderness, no cyanosis, no clubbing, ROM intact, no edema. [] Neurologic: Alert and oriented X 3, normal motor function, normal sensory function, no focal deficits noted. [] Psychologic: Affect normal, judgement normal, mood normal. [] Current Patient Data Vital Signs Vital Signs Date Time Temp Pulse Resp B/P (MAP) Pulse Ox O2 Delivery O2 Flow Rate FiO2 04/19/18 16:30 60 18 169/72 (104) 97 Nasal Cannula 2.0 04/19/18 14:00 97.9 97.9 Lab Values Laboratory Tests Test 04/19/18 14:15 04/19/18 14:50 Urine Collection Type Unknown Urine Color Yellow Urine Clarity Clear Urine pH 6.5 Urine Specific [place] 1.020 Urine Protein 30 mg/dL (NEG-TRACE) Urine Glucose (UA) Negative mg/dL (NEG) Urine Ketones (Stick) Trace mg/dL (NEG) Urine Blood Negative (NEG) Urine Nitrite Negative (NEG) Urine Bilirubin Negative (NEG) Urine Urobilinogen Dipstick 1.0 mg/dL (0.2 mg/dL) Urine Leukocyte Esterase Moderate (NEG) Urine RBC Occ /HPF (0-2) Urine WBC 1-4 /HPF (0-4) Urine Squamous Epithelial Cells Mod /LPF Urine Bacteria Few /HPF (0-FEW) White Blood Count 8.4 x10^3/uL (4.0-11.0) Red Blood Count 4.74 x10^6/uL (3.50-5.40) Hemoglobin 13.2 g/dL (12.0-15.5) Hematocrit 39.3 % (36.0-47.0) Mean Corpuscular Volume 83 fL (79-100) Mean Corpuscular Hemoglobin 28 pg (25-35) Mean Corpuscular Hemoglobin Concent 34 g/dL (31-37) Red Cell Distribution Width 13.8 % (11.5-14.5) Platelet Count 229 x10^3/uL (140-400) Neutrophils (%) (Auto) 69 % (31-73) Lymphocytes (%) (Auto) 21 % (24-48) L Monocytes (%) (Auto) 9 % (0-9) Eosinophils (%) (Auto) 1 % (0-3) Basophils (%) (Auto) 1 % (0-3) Neutrophils # (Auto) 5.8 x10^3uL (1.8-7.7) Lymphocytes # (Auto) 1.7 x10^3/uL (1.0-4.8) Monocytes # (Auto) 0.8 x10^3/uL (0.0-1.1) Eosinophils # (Auto) 0.1 x10^3/uL (0.0-0.7) Basophils # (Auto) 0.1 x10^3/uL (0.0-0.2) Prothrombin Time 15.4 SEC (11.7-14.0) H Prothrombin Time INR 1.3 (0.8-1.1) H Sodium Level 140 mmol/L (136-145) Potassium Level 4.2 mmol/L (3.5-5.1) Chloride Level 100 mmol/L (98-107) Carbon Dioxide Level 29 mmol/L (21-32) Anion Gap 11 (6-14) Blood Urea Nitrogen 15 mg/dL (7-20) Creatinine 0.9 mg/dL (0.6-1.0) Estimated GFR (Cockcroft-Gault) 62.3 BUN/Creatinine Ratio 17 (6-20) Glucose Level 100 mg/dL (70-99) H Calcium Level 9.6 mg/dL (8.5-10.1) Total Bilirubin 0.8 mg/dL (0.2-1.0) Aspartate Amino Transferase (AST) 23 U/L (15-37) Alanine Aminotransferase (ALT) 18 U/L (14-59) Alkaline Phosphatase 120 U/L (46-116) H Troponin I Quantitative 0.034 ng/mL (0.000-0.055) Total Protein 8.6 g/dL (6.4-8.2) H Albumin 3.2 g/dL (3.4-5.0) L Albumin/Globulin Ratio 0.6 (1.0-1.7) L Lipase 75 U/L (73-393) Laboratory Tests 04/19/18 14:50 Laboratory Tests 04/19/18 14:50 EKG EKG EKG shows a sinus rhythm at 56 bpm, left axis, QTC of 454 ms, no ST elevations, interpreted by me at 1537 Repeat EKG obtained at 1627 due to new chest pain, shows a sinus rhythm at 58 bpm, left axis, QTC of 449 ms, no acute changes when compared with EKG evaluated at 1537. No ST elevations. This was interpreted by me at 1637[] Radiology/Procedures Radiology/Procedures AP chest. HISTORY: Right-sided abdominal pain AP view was taken of the chest. Lungs are clear. Heart is normal in size without heart failure. There is no effusion. There is hypertrophic change in the spine. IMPRESSION: 1. No acute chest disease. CT abdomen and pelvis with contrast. HISTORY: Right-sided abdominal pain CT scan the abdomen and pelvis was done using 75 mL Omnipaque 300 contrast. Lung bases are clear. There is no effusion. There is degenerative change and facet arthritis in the lumbar spine. There is spinal stenosis at L4-5. A liver lesion is not identified. Patient's had a cholecystectomy. Spleen and adrenal glands are normal. Pancreas is normal. There is no mass or hydronephrosis in the kidneys. A renal or ureteral calculus is not identified. There is no bowel obstruction. There is no free air or ascites. Patient's had a hysterectomy. Ovaries are normal. Appendix is normal. IMPRESSION: 1. Degenerative change in the lumbar spine. 2. No renal or ureteral calculus noted. 3. Normal appendix. 4. No bowel obstruction or other acute finding.[] Course & Med Decision Making Course & Med Decision Making Pertinent Labs and Imaging studies reviewed. (See chart for details) ED course: Patient arrived, was placed in bed, and tolerated exam well. She did achieve pain relief with morphine however continued to have nausea after Zofran so Reglan was administered. Shortly after the pain relief in the abdomen, she started developing chest discomfort that she felt like was the same as her need for her previous cardiac stents. Repeat EKG was obtained that was unchanged from her initial one. Her initial cardiac enzymes were negative. Due to this discomfort in the chest, consultation was made with her primary care physician. Medical decision making: There is no evidence of appendicitis, no cholecystitis , no obstruction, no perforation, no urinary tract infection, no pancreatitis. This does not appear to be an acute coronary syndrome however patient's nature of pain change while she was in the emergency department so she was admitted for additional evaluation.[] Dragon Disclaimer Dragon Disclaimer This electronic medical record was generated, in whole or in part, using a voice recognition dictation system. Departure Departure Impression: Primary Impression: Chest pain Additional Impression: Abdominal pain Disposition: ADMITTED INPATIENT Admitting Physician: Ramu Rossi Condition: IMPROVED Referrals: RAMU ROSSI MD (PCP) Problem Qualifiers Primary Impression: Chest pain Chest pain type: unspecified Qualified Codes: R07.9 - Chest pain, unspecified Additional Impression: Abdominal pain Abdominal location: unspecified location Qualified Codes: R10.9 - Unspecified abdominal pain INDUKEEMATTHEW DO Apr 19, 2018 14:50
[2018-04-19 15:06] LABS: BASO # 0.1 x10^3/uL (0.0-0.2); BASO % 1 % (0-3); EOS # 0.1 x10^3/uL (0.0-0.7); EOS % 1 % (0-3); HEMATOCRIT 39.3 % (36.0-47.0); HEMOGLOBIN 13.2 g/dL (12.0-15.5); LYMPH # 1.7 x10^3/uL (1.0-4.8); LYMPH % 21 % (24-48); MEAN CORPUSCULAR HEMOGLOBIN 28 pg (25-35); MEAN CORPUSCULAR HGB CONC 34 g/dL (31-37); MEAN CORPUSCULAR VOLUME 83 fL (79-100); MONO # 0.8 x10^3/uL (0.0-1.1); MONO % 9 % (0-9); NEUT # 5.8 x10^3uL (1.8-7.7); NEUT % 69 % (31-73); PLATELET COUNT 229 x10^3/uL (140-400); RED BLOOD COUNT 4.74 x10^6/uL (3.50-5.40); RED CELL DISTRIBUTION WIDTH 13.8 % (11.5-14.5); WHITE BLOOD COUNT 8.4 x10^3/uL (4.0-11.0)
[2018-04-19 15:15] LABS: PROTHROMBIN TIME PATIENT 15.4 SEC (11.7-14.0)
[2018-04-19 15:16] LABS: CALCIUM 9.6 mg/dL (8.5-10.1); CREATININE 0.9 mg/dL (0.6-1.0); GFR 62.3; POTASSIUM 4.2 mmol/L (3.5-5.1)
[2018-04-19] MEDS: MORPHINE SULFATE 4 MG/ML VIAL. IV/SQ PRN ×2 (15:16→16:16)
[2018-04-19 15:22] LABS: ALBUMIN 3.2 g/dL (3.4-5.0); ALBUMIN/GLOBULIN RATIO 0.6 (1.0-1.7); TOTAL BILIRUBIN 0.8 mg/dL (0.2-1.0); TOTAL PROTEIN 8.6 g/dL (6.4-8.2)
[2018-04-19] MEDS ORDERED: IOHEXOL 300 MG/ML 100ML VIAL. IV ONE (15:30)
--- NOTE | 2018-04-19 15:38 | RAD ---
AP chest. HISTORY: Right-sided abdominal pain AP view was taken of the chest. Lungs are clear. Heart is normal in size without heart failure. There is no effusion. There is hypertrophic change in the spine. IMPRESSION: 1. No acute chest disease. Electronically signed by: Drew Flowers MD (04/19/2018 3:35 PM) [facility]
--- NOTE | 2018-04-19 16:25 | RAD ---
CT abdomen and pelvis with contrast. HISTORY: Right-sided abdominal pain CT scan the abdomen and pelvis was done using 75 mL Omnipaque 300 contrast. Lung bases are clear. There is no effusion. There is degenerative change and facet arthritis in the lumbar spine. There is spinal stenosis at L4-5. A liver lesion is not identified. Patient's had a cholecystectomy. Spleen and adrenal glands are normal. Pancreas is normal. There is no mass or hydronephrosis in the kidneys. A renal or ureteral calculus is not identified. There is no bowel obstruction. There is no free air or ascites. Patient's had a hysterectomy. Ovaries are normal. Appendix is normal. IMPRESSION: 1. Degenerative change in the lumbar spine. 2. No renal or ureteral calculus noted. 3. Normal appendix. 4. No bowel obstruction or other acute finding. Electronically signed by: Drew Flowers MD (04/19/2018 4:22 PM) [facility]
[2018-04-19] MEDS ORDERED: METOCLOPRAMIDE HCL 10 MG/2 ML VIAL. IV ONE (16:30)
[2018-04-19] MEDS ORDERED: NITROGLYCERIN SUBLINGUAL 0.4 MG BOTTLE OF 25. SL PRN (17:00)
[2018-04-19] MEDS ORDERED: MORPHINE SULFATE 2 MG/ML VIAL. IV PRN (17:00)
[2018-04-19] MEDS ORDERED: ONDANSETRON PF 4 MG/2 ML VIAL. IV PRN (17:00)
[2018-04-19] MEDS ORDERED: ACETAMINOPHEN 325 MG TABLET. PO PRN (17:00)
[2018-04-19] MEDS ORDERED: ASPIRIN CHEWABLE 81 MG TABLET. PO ONE (17:00)
[2018-04-19 18:00] VITALS: BP 157/91
[2018-04-19] MEDS ORDERED: POTA20TA82 PO (19:21)
[2018-04-19] MEDS ORDERED: KETO5DRO24 EACHEYE (19:25)
[2018-04-19] MEDS ORDERED: PRED5DRO16 EACHEYE (19:25)
[2018-04-19] MEDS ORDERED: MOXI3DRO EACHEYE (19:25)
[2018-04-19 19:30] VITALS: BP 151/58
[2018-04-19] MEDS ORDERED: VERAPAMIL SR 180 MG TABLET.ER. PO ONE (20:00)
[2018-04-19] MEDS ORDERED: INSULIN NPH/REG INSULIN 70/30 300 UNITS/3 ML INSULN.PEN. SQ ONE (20:00)
[2018-04-19 23:13] VITALS: BP 148/52
[2018-04-20 03:34] VITALS: BP 131/54
[2018-04-20 07:00] VITALS: BP 142/66
[2018-04-20 07:04] LABS: CHOLESTEROL/HDL RATIO 2.4
--- NOTE | 2018-04-20 07:05 | EKG ---
[facility] [address] [place] [address] Test Date: 2018-04-19 Test Time: 15:34:57 Pat Name: MICHAEL GALLEGOS Department: Room: 211 1 Gender: F [employer]er: : 1950 Requested By: MATTHEW GRIGGS Order Number: [id number] Reading MD: Jasmeet Roberts MD Measurements Intervals [place] Rate: 56 P: -48 TX: 202 QRS: -4 QRSD: 88 T: 2 QT: 468 QTc: 454 Interpretive Statements PROBABLE SR Electronically Signed On 04-28-2018 22:24:02 CDT by Jasmeet Roberts MD
[2018-04-20] MEDS ORDERED: SIMETHICONE 80 MG TAB.CHEW PO PRN (08:15)
[2018-04-20] MEDS ORDERED: ALBUTEROL SULFATE 2.5 MG/3 ML NEBU. NEB PRN (08:15)
[2018-04-20] MEDS ORDERED: DEXTROSE 50% 25 GM / 50ML DISP.SYRIN. IV PRN (08:15)
--- NOTE | 2018-04-20 08:16 | PDOC1 ---
History and Physical Date of Admission Date of Admission 04/19/18 Identification/Chief Complaint Chief Complaint Right sided abdominal pain Source Source: Patient History of Present Illness History of Present Illness Pt states that she initially came to the ER because of right sided abdominal pain. Has been going on since Friday, but significantly worsened on Friday when it became constant. Now it has gotten to a point where it only hurts when she takes a deep breath in. While she was in the ER started to experience chest pain or acid reflux. This has completely resolved. Pt can not think of any other significant events over this last week other than having cataract surgery on Friday Past Medical History Cardiovascular: CAD, HTN, Hyperlipidemia Pulmonary: Asthma GI: No pertinent hx Heme/Onc: No pertinent hx Hepatobiliary: No pertinent hx, Other Psych: No pertinent hx Rheumatologic: No pertinent hx Infectious disease: No pertinent hx ENT: No pertinent hx Renal/: No pertinent hx Endocrine: Diabetes Dermatology: No pertinent hx Past Surgical History Past Surgical History: Cholecystectomy, Total knee replacement, Hysterectomy, Other Family History Family History: Heart Disease, Hypertension, Stroke Social History Smoke: No ALCOHOL: none Drugs: None Current Problem List Problem List Problems Medical Problems: (1) Abdominal pain Status: Acute (2) Chest pain Status: Acute Current Medications Current Medications Current Medications Medications (Trade) Dose Ordered Sig/Corin Start Time Stop Time Status Last Admin Dose Admin Acetaminophen (Tylenol) 650 mg PRN Q4HRS PRN 04/19/18 17:00 04/20/18 16:59 04/20/18 03:36 650 MG Aspirin (Children'S Aspirin) 324 mg 1X ONCE 04/19/18 17:00 04/19/18 17:01 DC 04/19/18 17:31 324 MG Hyoscyamine (Anaspaz) 0.125 mg ONCE ONCE 04/19/18 14:45 04/19/18 14:46 DC 04/19/18 15:17 0.125 MG Insulin Human Isoph/Insulin Regular (HumuLIN 70/30) 40 units 1X ONCE 04/19/18 20:00 04/19/18 20:01 DC 04/19/18 20:38 40 UNITS Iohexol (Omnipaque 300 Mg/ml) 75 ml 1X ONCE 04/19/18 15:30 04/19/18 15:31 DC 04/19/18 15:59 75 ML Metoclopramide HCl (Reglan Vial) 10 mg 1X ONCE 04/19/18 16:30 04/19/18 16:31 DC 04/19/18 16:19 10 MG Morphine Sulfate (Morphine Sulfate) 2 mg PRN Q2HR PRN 04/19/18 17:00 04/20/18 16:59 04/19/18 23:06 2 MG Nitroglycerin (Nitrostat) 0.4 mg PRN Q5MIN PRN 04/19/18 17:00 04/20/18 16:59 Ondansetron HCl (Zofran) 4 mg PRN Q8HRS PRN 04/19/18 17:00 04/20/18 16:59 Sodium Chloride 1,000 ml @ 100 mls/hr Q10H 04/19/18 14:24 04/20/18 00:23 DC 04/19/18 15:17 100 MLS/HR Verapamil HCl (Calan Sr) 180 mg 1X ONCE 04/19/18 20:00 04/19/18 20:01 DC 04/19/18 20:37 180 MG Allergies Allergies Allergies Coded Allergies Type Severity Reaction Last Updated Verified Penicillins Allergy Intermediate 01/17/13 Yes ROS Review of System CONSTITUTIONAL: + fevers/chills over the past 24 hours EYES: No recent changes SKIN: No rash or itching CARDIOVASCULAR: No syncope, palpitations, or edema, +CP RESPIRATORY: No SOB or cough GASTROINTESTINAL: No nausea, vomiting. + abdominal pain NEUROLOGICAL: No headaches or weakness ENDOCRINE: No cold or heat intolerance GENITOURINARY: No urgency or frequency of urination MUSCULOSKELETAL: No back pain or joint pain LYMPHATICS: No enlarged lymph nodes PSYCHIATRIC: No anxiety or depression Physical Exam Physical Exam GEN.: No apparent distress. Alert and oriented. HEENT: Head is normocephalic, atraumatic NECK: Supple. LUNGS: Clear to auscultation. HEART: RRR, S1, S2 present. Peripheral pulses intact ABDOMEN: Soft, NTTP but pt expresses pain in RUQ, Positive bowel sounds. EXTREMITIES: Without any cyanosis. NEUROLOGIC: Normal speech, normal tone PSYCHIATRIC: Normal affect, normal mood. SKIN: No ulcerations Vitals Vitals Vital Signs Date Time Temp Pulse Resp B/P (MAP) Pulse Ox O2 Delivery O2 Flow Rate FiO2 04/20/18 07:00 98.6 63 18 142/66 (91) 93 Room Air 98.6 04/19/18 20:04 2.0 Labs Labs Laboratory Tests Test 04/19/18 14:15 04/19/18 14:50 04/19/18 17:45 04/19/18 20:36 Urine Collection Type Unknown Urine Color Yellow Urine Clarity Clear Urine pH 6.5 Urine Specific [place] 1.020 Urine Protein 30 mg/dL (NEG-TRACE) Urine Glucose (UA) Negative mg/dL (NEG) Urine Ketones (Stick) Trace mg/dL (NEG) Urine Blood Negative (NEG) Urine Nitrite Negative (NEG) Urine Bilirubin Negative (NEG) Urine Urobilinogen Dipstick 1.0 mg/dL (0.2 mg/dL) Urine Leukocyte Esterase Moderate (NEG) Urine RBC Occ /HPF (0-2) Urine WBC 1-4 /HPF (0-4) Urine Squamous Epithelial Cells Mod /LPF Urine Bacteria Few /HPF (0-FEW) White Blood Count 8.4 x10^3/uL (4.0-11.0) Red Blood Count 4.74 x10^6/uL (3.50-5.40) Hemoglobin 13.2 g/dL (12.0-15.5) Hematocrit 39.3 % (36.0-47.0) Mean Corpuscular Volume 83 fL (79-100) Mean Corpuscular Hemoglobin 28 pg (25-35) Mean Corpuscular Hemoglobin Concent 34 g/dL (31-37) Red Cell Distribution Width 13.8 % (11.5-14.5) Platelet Count 229 x10^3/uL (140-400) Neutrophils (%) (Auto) 69 % (31-73) Lymphocytes (%) (Auto) 21 % (24-48) Monocytes (%) (Auto) 9 % (0-9) Eosinophils (%) (Auto) 1 % (0-3) Basophils (%) (Auto) 1 % (0-3) Neutrophils # (Auto) 5.8 x10^3uL (1.8-7.7) Lymphocytes # (Auto) 1.7 x10^3/uL (1.0-4.8) Monocytes # (Auto) 0.8 x10^3/uL (0.0-1.1) Eosinophils # (Auto) 0.1 x10^3/uL (0.0-0.7) Basophils # (Auto) 0.1 x10^3/uL (0.0-0.2) Prothrombin Time 15.4 SEC (11.7-14.0) Prothromb Time International Ratio 1.3 (0.8-1.1) Sodium Level 140 mmol/L (136-145) Potassium Level 4.2 mmol/L (3.5-5.1) Chloride Level 100 mmol/L (98-107) Carbon Dioxide Level 29 mmol/L (21-32) Anion Gap 11 (6-14) Blood Urea Nitrogen 15 mg/dL (7-20) Creatinine 0.9 mg/dL (0.6-1.0) Estimated GFR (Cockcroft-Gault) 62.3 BUN/Creatinine Ratio 17 (6-20) Glucose Level 100 mg/dL (70-99) Calcium Level 9.6 mg/dL (8.5-10.1) Total Bilirubin 0.8 mg/dL (0.2-1.0) Aspartate Amino Transf (AST/SGOT) 23 U/L (15-37) Alanine Aminotransferase (ALT/SGPT) 18 U/L (14-59) Alkaline Phosphatase 120 U/L (46-116) Troponin I Quantitative 0.034 ng/mL (0.000-0.055) 0.040 ng/mL (0.000-0.055) Total Protein 8.6 g/dL (6.4-8.2) Albumin 3.2 g/dL (3.4-5.0) Albumin/Globulin Ratio 0.6 (1.0-1.7) Lipase 75 U/L (73-393) Glucose (Fingerstick) 172 mg/dL (70-99) Test 04/20/18 00:15 04/20/18 06:10 04/20/18 06:57 Troponin I Quantitative 0.032 ng/mL (0.000-0.055) 0.038 ng/mL (0.000-0.055) Triglycerides Level 50 mg/dL (0-150) Cholesterol Level 88 mg/dL (0-200) LDL Cholesterol, Calculated 42 mg/dL (0-100) VLDL Cholesterol, Calculated 10 mg/dL (0-40) Non-HDL Cholesterol Calculated 52 mg/dL (0-129) HDL Cholesterol 36 mg/dL (40-60) Cholesterol/HDL Ratio 2.4 Glucose (Fingerstick) 76 mg/dL (70-99) Laboratory Tests Test 04/19/18 14:15 04/19/18 14:50 04/19/18 17:45 04/19/18 20:36 Urine Collection Type Unknown Urine Color Yellow Urine Clarity Clear Urine pH 6.5 Urine Specific [place] 1.020 Urine Protein 30 mg/dL (NEG-TRACE) Urine Glucose (UA) Negative mg/dL (NEG) Urine Ketones (Stick) Trace mg/dL (NEG) Urine Blood Negative (NEG) Urine Nitrite Negative (NEG) Urine Bilirubin Negative (NEG) Urine Urobilinogen Dipstick 1.0 mg/dL (0.2 mg/dL) Urine Leukocyte Esterase Moderate (NEG) Urine RBC Occ /HPF (0-2) Urine WBC 1-4 /HPF (0-4) Urine Squamous Epithelial Cells Mod /LPF Urine Bacteria Few /HPF (0-FEW) White Blood Count 8.4 x10^3/uL (4.0-11.0) Red Blood Count 4.74 x10^6/uL (3.50-5.40) Hemoglobin 13.2 g/dL (12.0-15.5) Hematocrit 39.3 % (36.0-47.0) Mean Corpuscular Volume 83 fL (79-100) Mean Corpuscular Hemoglobin 28 pg (25-35) Mean Corpuscular Hemoglobin Concent 34 g/dL (31-37) Red Cell Distribution Width 13.8 % (11.5-14.5) Platelet Count 229 x10^3/uL (140-400) Neutrophils (%) (Auto) 69 % (31-73) Lymphocytes (%) (Auto) 21 % (24-48) Monocytes (%) (Auto) 9 % (0-9) Eosinophils (%) (Auto) 1 % (0-3) Basophils (%) (Auto) 1 % (0-3) Neutrophils # (Auto) 5.8 x10^3uL (1.8-7.7) Lymphocytes # (Auto) 1.7 x10^3/uL (1.0-4.8) Monocytes # (Auto) 0.8 x10^3/uL (0.0-1.1) Eosinophils # (Auto) 0.1 x10^3/uL (0.0-0.7) Basophils # (Auto) 0.1 x10^3/uL (0.0-0.2) Prothrombin Time 15.4 SEC (11.7-14.0) Prothromb Time International Ratio 1.3 (0.8-1.1) Sodium Level 140 mmol/L (136-145) Potassium Level 4.2 mmol/L (3.5-5.1) Chloride Level 100 mmol/L (98-107) Carbon Dioxide Level 29 mmol/L (21-32) Anion Gap 11 (6-14) Blood Urea Nitrogen 15 mg/dL (7-20) Creatinine 0.9 mg/dL (0.6-1.0) Estimated GFR (Cockcroft-Gault) 62.3 BUN/Creatinine Ratio 17 (6-20) Glucose Level 100 mg/dL (70-99) Calcium Level 9.6 mg/dL (8.5-10.1) Total Bilirubin 0.8 mg/dL (0.2-1.0) Aspartate Amino Transf (AST/SGOT) 23 U/L (15-37) Alanine Aminotransferase (ALT/SGPT) 18 U/L (14-59) Alkaline Phosphatase 120 U/L (46-116) Troponin I Quantitative 0.034 ng/mL (0.000-0.055) 0.040 ng/mL (0.000-0.055) Total Protein 8.6 g/dL (6.4-8.2) Albumin 3.2 g/dL (3.4-5.0) Albumin/Globulin Ratio 0.6 (1.0-1.7) Lipase 75 U/L (73-393) Glucose (Fingerstick) 172 mg/dL (70-99) Test 04/20/18 00:15 04/20/18 06:10 04/20/18 06:57 Troponin I Quantitative 0.032 ng/mL (0.000-0.055) 0.038 ng/mL (0.000-0.055) Triglycerides Level 50 mg/dL (0-150) Cholesterol Level 88 mg/dL (0-200) LDL Cholesterol, Calculated 42 mg/dL (0-100) VLDL Cholesterol, Calculated 10 mg/dL (0-40) Non-HDL Cholesterol Calculated 52 mg/dL (0-129) HDL Cholesterol 36 mg/dL (40-60) Cholesterol/HDL Ratio 2.4 Glucose (Fingerstick) 76 mg/dL (70-99) VTE Prophylaxis Ordered VTE Prophylaxis Devices: No VTE Pharmacological Prophylaxi: No Assessment/Plan Assessment/Plan Pt is a 67yo CF admitted for chest pain and abdominal pain 1)Chest pain- troponin mildly elevated but stable, appears to have been mildly elevated last year. Hx of CAD. Cardiology consulted in the ER. Pt continued on Plavix 2)Abdominal pain- possibly related to gas and/or GERD. Pantoprazole and simethicone started 3)DM2- HbA1C pending. Pt continued on 40 units of NPH BID and 17units of humulin R QAC. SSI available as well 4)HTN- well controlled. Pt continued on Verapamil and Cozaar 5)HLD- well controlled. Pt continued on Lipitor 10mg 6)Asthma- has albuterol available 7)PEM- mild 8)Abnormal U/A- pt asymptomatic. Urine culture pending SHABNAM REYES MD Apr 20, 2018 08:16
--- NOTE | 2018-04-20 08:58 | PDOC2 ---
TWILA CEBALLOS NAIL GALVANIZER 04/20/18 0858: CARDIAC CONSULT DATE OF CONSULT Date of Consult DATE: 04/20/18 TIME: 08:51 REASON FOR CONSULT Reason for Consult: Chest Pain REFERRING PHYSICIAN Referring Physician: Dr. Razo SOURCE Source: Chart review, Patient HISTORY OF PRESENT ILLNESS HISTORY OF PRESENT ILLNESS This is a 67 yo female, with a history of CAD s/p PCI/stent to LAD and OM, HTN, HLP, and diabetes, who presented secondary to abdominal pain . Patient experiencing right lower quadrant pain intermittently since Friday. Much worse Friday. Worse in deep breathing. Had cold chills. Persistent Friday so she came into the ED for further evaluation and treatment. Fidel any dizziness, diarrhea, and nausea/vomiting. While in ED, developed central chest pressure. Non-radiating. No associated dizziness, diaphoresis, SOA, palpitations, or nausea/vomiting. No recent BOWEN, chest pain with exertion, PND, or fatigue. No further CP overnight PAST MEDICAL HISTORY Cardiovascular: CAD (s/p PCI/stent to LAD on OM), HTN, Hyperlipidemia Pulmonary: Asthma CENTRAL NERVOUS SYSTEM: Other (no pertinent positives ) GI: No pertinent hx Heme/Onc: No pertinent hx Hepatobiliary: No pertinent hx Psych: No pertinent hx Musculoskeletal: Osteoarthritis Rheumatologic: No pertinent hx Infectious disease: No pertinent hx ENT: No pertinent hx Renal/: No pertinent hx Endocrine: Diabetes Dermatology: No pertinent hx PAST SURGICAL HISTORY Past Surgical History: Cholecystectomy, Total knee replacement (right ), Hysterectomy FAMILY HISTORY Family History: Coronary Artery Disease, Diabetes, Hypertension SOCIAL HISTORY Smoke: No ALCOHOL: none Drugs: None Lives: with Family CURRENT MEDICATIONS CURRENT MEDICATIONS Current Medications Medications (Trade) Dose Ordered Sig/Corin Route PRN Reason Start Time Stop Time Status Last Admin Dose Admin Morphine Sulfate (Morphine Sulfate) 4 mg PRN Q15MIN PRN IV/SQ PAIN GREATER THAN 04/1904/19/18 14:30 04/20/18 14:29 04/19/18 16:16 Sodium Chloride 1,000 ml @ 100 mls/hr Q10H IV 04/19/18 14:24 04/20/18 00:23 DC 04/19/18 15:17 Ondansetron HCl (Zofran) 4 mg 1X ONCE IV 04/19/18 14:30 04/19/18 14:34 DC 04/19/18 15:14 Hyoscyamine (Anaspaz) 0.125 mg ONCE ONCE PO 04/19/18 14:45 04/19/18 14:46 DC 04/19/18 15:17 Iohexol (Omnipaque 300 Mg/ml) 75 ml 1X ONCE IV 04/19/18 15:30 04/19/18 15:31 DC 04/19/18 15:59 Metoclopramide HCl (Reglan Vial) 10 mg 1X ONCE IV 04/19/18 16:30 04/19/18 16:31 DC 04/19/18 16:19 Aspirin (Children'S Aspirin) 324 mg 1X ONCE PO 04/19/18 17:00 04/19/18 17:01 DC 04/19/18 17:31 Morphine Sulfate (Morphine Sulfate) 2 mg PRN Q2HR PRN IV PAIN 04/19/18 17:00 04/20/18 16:59 04/19/18 23:06 Acetaminophen (Tylenol) 650 mg PRN Q4HRS PRN PO FEVER 04/19/18 17:00 04/20/18 16:59 04/20/18 03:36 Verapamil HCl (Calan Sr) 180 mg 1X ONCE PO 04/19/18 20:00 04/19/18 20:01 DC 04/19/18 20:37 Insulin Human Isoph/Insulin Regular (HumuLIN 70/30) 40 units 1X ONCE SQ 04/19/18 20:00 04/19/18 20:01 DC 04/19/18 20:38 ALLERGIES ALLERGIES: Coded Allergies: Penicillins (Verified Allergy, Intermediate, 01/17/13) ROS Review of System 14 point ROS conducted with pertinent positives noted above in HPI. PHYSICAL EXAM General: Alert, Oriented X3, Cooperative, No acute distress HEENT: Atraumatic, Mucous membr. moist/pink Lungs: Clear to auscultation, Normal air movement Heart: Regular rate, Normal S1, Normal S2, Other (tele SR/SB) Abdomen: Soft Extremities: No edema, Normal pulses Skin: No significant lesion Neuro: Normal speech, Sensation intact Psych/Mental Status: Mental status NL, Mood NL MUSCULOSKELETAL: Osteoarthritic changes both hands VITALS VITALS Vital Signs Date Time Temp Pulse Resp B/P (MAP) Pulse Ox O2 Delivery O2 Flow Rate FiO2 04/20/18 07:00 98.6 63 18 142/66 (91) 93 Room Air 98.6 04/19/18 20:04 2.0 LABS Lab: Laboratory Tests Test 04/19/18 14:15 04/19/18 14:50 04/19/18 17:45 04/19/18 20:36 Urine Collection Type Unknown Urine Color Yellow Urine Clarity Clear Urine pH 6.5 Urine Specific [place] 1.020 Urine Protein 30 mg/dL (NEG-TRACE) Urine Glucose (UA) Negative mg/dL (NEG) Urine Ketones (Stick) Trace mg/dL (NEG) Urine Blood Negative (NEG) Urine Nitrite Negative (NEG) Urine Bilirubin Negative (NEG) Urine Urobilinogen Dipstick 1.0 mg/dL (0.2 mg/dL) Urine Leukocyte Esterase Moderate (NEG) Urine RBC Occ /HPF (0-2) Urine WBC 1-4 /HPF (0-4) Urine Squamous Epithelial Cells Mod /LPF Urine Bacteria Few /HPF (0-FEW) White Blood Count 8.4 x10^3/uL (4.0-11.0) Red Blood Count 4.74 x10^6/uL (3.50-5.40) Hemoglobin 13.2 g/dL (12.0-15.5) Hematocrit 39.3 % (36.0-47.0) Mean Corpuscular Volume 83 fL (79-100) Mean Corpuscular Hemoglobin 28 pg (25-35) Mean Corpuscular Hemoglobin Concent 34 g/dL (31-37) Red Cell Distribution Width 13.8 % (11.5-14.5) Platelet Count 229 x10^3/uL (140-400) Neutrophils (%) (Auto) 69 % (31-73) Lymphocytes (%) (Auto) 21 % (24-48) Monocytes (%) (Auto) 9 % (0-9) Eosinophils (%) (Auto) 1 % (0-3) Basophils (%) (Auto) 1 % (0-3) Neutrophils # (Auto) 5.8 x10^3uL (1.8-7.7) Lymphocytes # (Auto) 1.7 x10^3/uL (1.0-4.8) Monocytes # (Auto) 0.8 x10^3/uL (0.0-1.1) Eosinophils # (Auto) 0.1 x10^3/uL (0.0-0.7) Basophils # (Auto) 0.1 x10^3/uL (0.0-0.2) Prothrombin Time 15.4 SEC (11.7-14.0) Prothromb Time International Ratio 1.3 (0.8-1.1) Sodium Level 140 mmol/L (136-145) Potassium Level 4.2 mmol/L (3.5-5.1) Chloride Level 100 mmol/L (98-107) Carbon Dioxide Level 29 mmol/L (21-32) Anion Gap 11 (6-14) Blood Urea Nitrogen 15 mg/dL (7-20) Creatinine 0.9 mg/dL (0.6-1.0) Estimated GFR (Cockcroft-Gault) 62.3 BUN/Creatinine Ratio 17 (6-20) Glucose Level 100 mg/dL (70-99) Calcium Level 9.6 mg/dL (8.5-10.1) Total Bilirubin 0.8 mg/dL (0.2-1.0) Aspartate Amino Transf (AST/SGOT) 23 U/L (15-37) Alanine Aminotransferase (ALT/SGPT) 18 U/L (14-59) Alkaline Phosphatase 120 U/L (46-116) Troponin I Quantitative 0.034 ng/mL (0.000-0.055) 0.040 ng/mL (0.000-0.055) Total Protein 8.6 g/dL (6.4-8.2) Albumin 3.2 g/dL (3.4-5.0) Albumin/Globulin Ratio 0.6 (1.0-1.7) Lipase 75 U/L (73-393) Glucose (Fingerstick) 172 mg/dL (70-99) Test 04/20/18 00:15 04/20/18 06:10 04/20/18 06:57 Troponin I Quantitative 0.032 ng/mL (0.000-0.055) 0.038 ng/mL (0.000-0.055) Triglycerides Level 50 mg/dL (0-150) Cholesterol Level 88 mg/dL (0-200) LDL Cholesterol, Calculated 42 mg/dL (0-100) VLDL Cholesterol, Calculated 10 mg/dL (0-40) Non-HDL Cholesterol Calculated 52 mg/dL (0-129) HDL Cholesterol 36 mg/dL (40-60) Cholesterol/HDL Ratio 2.4 Glucose (Fingerstick) 76 mg/dL (70-99) STRESS TEST STRESS TEST Conclusion 1. Reversible perfusion defect over the anteroapical wall that is of a medium sizeand mild in intensity suggestive of myocardial ischemia 2. Normal wall motion and wall thickening including the anteroapical wall with an ejection fraction of69%. 3. Scan indicates low to moderate risk for cardiac events DATE: 01/18/13 1106 HEART CATH HEART CATH Conclusion This patient had unstable angina with significant disease of the LAD as well as the obtuse marginal branch of the circumflex. Both areas were stented with good results. I would like to continue with the present anticoagulation with heparin and Aggrastat and then DC the heparin in a few hours and DC the groin line in the morning. She will need to be on aspirin for life and Plavix for at least 1 year. DATE: 06/05/16 1804 ASSESSMENT/PLAN ASSESSMENT/PLAN 1. Abdominal pain; CT abdomen/pelvis without acute findings. Possible UTI- sent for culture. As per PCP 2. CAD s/p PCI/stent to LAD and OM 2017 as noted above 3. Accelerated hypertension; better controlled. Home therapy resumed 4. Hyperlipidemia; on stain. lipids on goal. 5. DM, II; as per PCP 6. Bradycardia, sinus; lowest rate mid 40's noted. No pauses Recommendations Obtain echo to assess LV systolic function Resume secondary prevention measures. No AV casper blocking agents given bradycardia Maintain BP control. Home antiHTN therapy resume, monitor to assess need for therapy titration If echo WNL, will arrange for outpatient stress test. JAMIL JAIN MD 04/21/18 0843: CARDIAC CONSULT ASSESSMENT/PLAN ASSESSMENT/PLAN Patient seen and examined 04/20/18. Agree with BRANDS EDITOR's assessment and plan. Blood pressure better controlled since admission 2-D echo showed normal LV function without any wall motion abnormalities CAD status clinically stable Agree with holding all rate lowering agents Plan for ischemic evaluation as an outpatient Thank you for your consultation TERESA CEBALLOSILY BARTOLO Apr 20, 2018 08:58 JAMIL JAIN MD Apr 21, 2018 08:43
[2018-04-20] MEDS ORDERED: CLOPIDOGREL BISULFATE 75 MG TABLET PO SCH (09:00)
[2018-04-20] MEDS ORDERED: VERAPAMIL SR 180 MG TABLET.ER. PO SCH (09:00)
[2018-04-20] MEDS ORDERED: MOXIFLOXACIN 0.5% OPHTH SOLUTION 3ML BOTTLE. OU SCH (09:00)
[2018-04-20] MEDS ORDERED: PANTOPRAZOLE 40 MG TABLET.DR. PO SCH (09:00)
[2018-04-20] MEDS ORDERED: LOSARTAN POTASSIUM 50 MG TABLET. PO SCH (09:00)
[2018-04-20] MEDS: INSULIN LISPRO 300 UNITS/3 ML INSULN.PEN. SQ SCH ×2 (09:00→12:33)
[2018-04-20] MEDS ORDERED: ASPIRIN ENTERIC COATED 81 MG TABLET.DR. PO SCH (10:00)
[2018-04-20] MEDS ORDERED: INSULIN NPH/REG INSULIN 70/30 300 UNITS/3 ML INSULN.PEN. SQ SCH (10:00)
[2018-04-20] MEDS: DEXAMETHASONE 0.1% OPHTH SOLUTION 5ML BOTTLE. OU SCH ×2 (10:37→16:44)
[2018-04-20] MEDS: KETOROLAC TROMETHAMINE 0.5% OPHTH SOLUTION 3ML BOTTLE. OU SCH ×2 (10:37→16:44)
--- NOTE | 2018-04-20 10:53 | CARD ---
MR#: [id number] Date of Study: 04/20/2018 Ordering Physician: TWILA CEBALLOS, Referring Physician: CLAIRE RANDOLPH Tech: Mayelin Fontaine RDCS APPROVED REPORT EXAM: Two-dimensional and M-mode echocardiogram with Doppler and color Doppler. Other Information Quality : Good INDICATION CAD Chest Pain 2D DIMENSIONS RVDd2.3 (2.9-3.5cm)Left Atrium(2D)3.5 (1.6-4.0cm) IVSd1.0 (0.7-1.1cm)Aortic Root(2D)3.0 (2.0-3.7cm) LVDd5.7 (3.9-5.9cm)LVOT Diameter2.1 (1.8-2.4cm) PWd1.1 (0.7-1.1cm)LVDs3.1 (2.5-4.0cm) FS (%) 30.0 %SV119.8 ml LVEF(%)60.0 (>50%) Aortic Valve AoV Peak Aidan.158.5cm/sAoV VTI36.4cm AO Peak GR.10.1mmHgLVOT Peak Aidan.120.2cm/s AO Mean GR.5mmHgAVA (VMAX)2.71cm2 SALVATORE (VTI)2.80cm2 Mitral Valve MV E Opmoulyu653.0cm/sMV DECEL IPTX521ig MV A Qswqgghj63.2cm/sE/A Ratio1.5 Tricuspid Valve TR P. Stcpzrsb055sp/sRAP MHPRLEHM6cyFo TR Peak Gr.98krYpVJCW47vyRq Pulmonary Vein S1 Qwqrdhgw67.5cm/sD2 Amctmmqs13.0cm/s LEFT VENTRICLE The left ventricle is normal size. There is normal left ventricular wall thickness. The left ventricu lar systolic function is normal. The Ejection Fraction is 55-60%. There is normal LV segmental wall m otion. RIGHT VENTRICLE The right ventricle is normal size. The right ventricular systolic function is normal. ATRIA The left atrium size is normal. The right atrium size is normal. The interatrial septum is intact wit h no evidence for an atrial septal defect or patent foramen ovale as noted on 2-D or Doppler imaging. AORTIC VALVE The aortic valve is calcified but opens well. Doppler and Color Flow revealed no significant aortic r egurgitation. There is no significant aortic valvular stenosis. MITRAL VALVE The mitral valve is calcified but opens well. Mitral annular calcification is mild. There is no evide nce of mitral valve prolapse. There is no mitral valve stenosis. Doppler and Color-flow revealed trac e mitral regurgitation. TRICUSPID VALVE The tricuspid valve is normal in structure and function. Doppler and Color Flow revealed trace tricus pid regurgitation. The PA pressure was estimated at 23 mmHg. There is no tricuspid valve stenosis. PULMONIC VALVE The pulmonic valve is not well visualized. Doppler and Color Flow revealed mild pulmonic valvular reg urgitation. There is no pulmonic valvular stenosis. GREAT VESSELS The aortic root is normal in size. The ascending aorta is normal in size. The IVC is normal in size a nd collapses >50% with inspiration. PERICARDIAL EFFUSION There is no evidence of significant pericardial effusion. Critical Notification Critical Value: No <Conclusion> The left ventricular systolic function is normal. The Ejection Fraction is 55-60%. There is normal LV segmental wall motion. Trace mitral regurgitation. Trace tricuspid regurgitation. The PA pressure was estimated at 23 mmHg. There is no evidence of significant pericardial effusion. Signed by : Tan Coe, Electronically Approved : 04/20/2018 10:52:26
[2018-04-20 11:21] VITALS: BP 162/57
[2018-04-20] MEDS ORDERED: INSULIN LISPRO 300 UNITS/3 ML INSULN.PEN. SQ SCH (12:00)
--- NOTE | 2018-04-20 13:22 | EKG ---
[facility] [address] [place] [address] Test Date: 2018-04-19 Test Time: 16:27:54 Pat Name: MICHAEL GALLEGOS Department: Room: 211 1 Gender: F Fur Blower: : 1950 Requested By: MATTHEW GRIGGS Order Number: [id number] Reading MD: Jasmeet Roberts MD Measurements Intervals [place] Rate: 58 P: -49 NM: 190 QRS: -7 QRSD: 90 T: 0 QT: 458 QTc: 449 Interpretive Statements SINUS RHYTHM Electronically Signed On 04-28-2018 22:25:06 CDT by Jasmeet Roberts MD
--- NOTE | 2018-04-20 13:27 | NUR ---
SS following for discharge planning. SS reviewed pt chart. Pt is from home with spouse and is currently on room air. No discharge needs noted at this time. SS will continue to follow for pending discharge needs.
[2018-04-20 14:24] VITALS: BP 128/96
[2018-04-20] MEDS ORDERED: RANI150T2 PO (17:10)
[2018-04-20] MEDS ORDERED: LOSA-73 PO (17:10)
--- NOTE | 2018-04-20 17:11 | PDOC3 ---
Discharge Summary Date of Admission: Apr 20, 2018 Date of Discharge: Apr 20, 2018 Follow-Up: Other ([address] Rossi) Admitting Diagnosis comment: Chest pain FINAL DIAGNOSIS Chest pain, Abdominal pain, DM2, HTN, HLD, Asthma, PEM-mild, Abnormal U/A Brief Hospital Course Pt is a 67yo CF admitted for chest pain and abdominal pain 1)Chest pain- troponin mildly elevated but stable, appears to have been mildly elevated last year. Hx of CAD. Cardiology consulted in the ER. Pt stated that she was doing much better and was wanting to go home. Pt continued on Plavix 2)Abdominal pain- possibly related to gas and/or GERD. Pantoprazole and simethicone started 3)DM2- HbA1C 7.2 on admission. Pt continued on 40 units of NPH BID and 17units of humulin R QAC. Had SSI available as well 4)HTN- well controlled. Pt continued on Verapamil and Cozaar 5)HLD- well controlled. Pt continued on Lipitor 10mg 6)Asthma- has albuterol available 7)PEM- mild 8)Abnormal U/A- pt asymptomatic. Urine culture shows mixed urogenital [place] Discharge Medications Current Medications Morphine Sulfate (Morphine Sulfate) 4 mg PRN Q15MIN PRN IV/SQ PAIN GREATER THAN 3/10 Last administered on 04/19/18at 16:16; Start 04/19/18 at 14:30; Stop at 14:29; Status DC Sodium Chloride 1,000 ml @ 100 mls/hr Q10H IV Last administered on 04/19/18 15:17; Start 04/19/18 at 14:24; Stop 04/20/18 at 00:23; Status DC Ondansetron HCl (Zofran) 4 mg 1X ONCE IV Last administered on 04/19/18 15:14 ; Start 04/19/18 at 14:30; Stop 04/19/18 at 14:34; Status DC Hyoscyamine (Anaspaz) 0.125 mg ONCE ONCE PO Last administered on 04/19/18 15: 17; Start 04/19/18 at 14:45; Stop 04/19/18 at 14:46; Status DC Iohexol (Omnipaque 300 Mg/ml) 75 ml 1X ONCE IV Last administered on 04/19/18at 15:59; Start 04/19/18 at 15:30; Stop 04/19/18 at 15:31; Status DC Metoclopramide HCl (Reglan Vial) 10 mg 1X ONCE IV Last administered on at 16:19; Start 04/19/18 at 16:30; Stop 04/19/18 at 16:31; Status DC Aspirin (Children'S Aspirin) 324 mg 1X ONCE PO Last administered on 04/19/18at 17:31; Start 04/19/18 at 17:00; Stop 04/19/18 at 17:01; Status DC Ondansetron HCl (Zofran) 4 mg PRN Q8HRS PRN IV NAUSEA/VOMITING; Start 04/19/18 at 17:00; Stop 04/20/18 at 16:59; Status DC Morphine Sulfate (Morphine Sulfate) 2 mg PRN Q2HR PRN IV PAIN Last administered on 04/19/18at 23:06; Start 04/19/18 at 17:00; Stop 04/20/18 at 16:59 ; Status DC Acetaminophen (Tylenol) 650 mg PRN Q4HRS PRN PO FEVER Last administered on 04/20at 03:36; Start 04/19/18 at 17:00; Stop 04/20/18 at 16:59; Status DC Nitroglycerin (Nitrostat) 0.4 mg PRN Q5MIN PRN SL CHEST PAIN; Start 04/19/18 at 17:00; Stop 04/20/18 at 16:59; Status DC Verapamil HCl (Calan Sr) 180 mg 1X ONCE PO Last administered on 04/19/18at 20: 37; Start 04/19/18 at 20:00; Stop 04/19/18 at 20:01; Status DC Insulin Human Isoph/Insulin Regular (HumuLIN 70/30) 40 units 1X ONCE SQ Last administered on 04/19/18at 20:38; Start 04/19/18 at 20:00; Stop 04/19/18 at 20:01 ; Status DC Atorvastatin Calcium (Lipitor) 10 mg QHS PO ; Start 04/20/18 at 21:00 Clopidogrel Bisulfate (Plavix) 75 mg DAILYWBKFT PO Last administered on at 09:36; Start 04/20/18 at 09:00 Insulin Human Lispro (HumaLOG) 17 units TIDWMEALS SQ Last administered on 12:34; Start 04/20/18 at 12:00 Ketorolac Tromethamine (Acular) 1 drop TID OU Last administered on 04/20/18at 16 :44; Start 04/20/18 at 09:00 Moxifloxacin HCl (Vigamox) 1 drop TID OU ; Start 04/20/18 at 09:00; Stop at 09:51; Status DC Dexamethasone (Maxidex) 1 drop TID OU Last administered on 04/20/18at 16:44; Start 04/20/18 at 09:00 Insulin Human Isoph/Insulin Regular (HumuLIN 70/30) 40 units BID@0800,1900 SQ Last administered on 04/20/18 10:42; Start 04/20/18 at 10:00 Verapamil HCl (Calan Sr) 180 mg BID PO Last administered on 04/20/18at 10:37; Start 04/20/18 at 09:00 Losartan Potassium (Cozaar) 50 mg DAILY PO Last administered on 04/20/18at 09:36 ; Start 04/20/18 at 09:00 Albuterol Sulfate (Ventolin Neb Soln) 2.5 mg PRN Q4HRS PRN NEB SHORTNESS OF BREATH; Start 04/20/18 at 08:15 Insulin Human Lispro (HumaLOG) 0-5 UNITS TIDWMEALS SQ Last administered on 04/20at 12:33; Start 04/20/18 at 09:00 Dextrose (Dextrose 50%-Water Syringe) 12.5 gm PRN Q15MIN PRN IV SEE COMMENTS; Start 04/20/18 at 08:15 Pantoprazole Sodium (Protonix) 40 mg DAILYAC PO Last administered on 04/20/18at 09:36; Start 04/20/18 at 09:00 Simethicone (Gas-X) 80 mg PRN AFTMEALHC PRN PO GAS / BLOATING; Start 04/20/18 at 08:15 Aspirin (Ecotrin) 81 mg DAILYWBKFT PO Last administered on 04/20/18at 10:35; Start 04/20/18 at 10:00 Active Scripts Active Clopidogrel (Clopidogrel Bisulfate) 75 Mg Tablet 75 Mg PO DAILYWBKFT Reported Moxeza (Moxifloxacin Hcl) 3 Ml Drops.visc 1 Drop EACHEYE TID Prednisolone Acetate 5 Ml Drops.susp 1 Drop EACHEYE TID Ketorolac Tromethamine 5 Ml Drops 1 Drop EACHEYE TID Potassium Chloride 20 Meq Tablet.er 50 Meq PO DAILY Atorvastatin Calcium 10 Mg Tablet 1 Tab PO DAILY Novolin N (Nph, Human Insulin Isophane) 100 Unit/1 Ml Vial 40 Unit SQ BID Novolin R (Insulin Regular, Human) 100 Unit/1 Ml Vial 15 Unit SQ TIDWMEALS Verapamil Sr (Verapamil HCl) 180 Mg Cap24h.pel 180 Mg PO BID Vital Signs Vital Signs Date Time Temp Pulse Resp B/P (MAP) Pulse Ox O2 Delivery O2 Flow Rate FiO2 04/20/18 14:24 98.4 58 18 128/96 (107) 94 Room Air 98.4 04/19/18 20:04 2.0 Labs Laboratory Tests Test 04/19/18 14:15 04/19/18 14:50 04/19/18 17:45 04/19/18 20:36 Urine Collection Type Unknown Urine Color Yellow Urine Clarity Clear Urine pH 6.5 Urine Specific [place] 1.020 Urine Protein 30 mg/dL (NEG-TRACE) Urine Glucose (UA) Negative mg/dL (NEG) Urine Ketones (Stick) Trace mg/dL (NEG) Urine Blood Negative (NEG) Urine Nitrite Negative (NEG) Urine Bilirubin Negative (NEG) Urine Urobilinogen Dipstick 1.0 mg/dL (0.2 mg/dL) Urine Leukocyte Esterase Moderate (NEG) Urine RBC Occ /HPF (0-2) Urine WBC 1-4 /HPF (0-4) Urine Squamous Epithelial Cells Mod /LPF Urine Bacteria Few /HPF (0-FEW) White Blood Count 8.4 x10^3/uL (4.0-11.0) Red Blood Count 4.74 x10^6/uL (3.50-5.40) Hemoglobin 13.2 g/dL (12.0-15.5) Hematocrit 39.3 % (36.0-47.0) Mean Corpuscular Volume 83 fL (79-100) Mean Corpuscular Hemoglobin 28 pg (25-35) Mean Corpuscular Hemoglobin Concent 34 g/dL (31-37) Red Cell Distribution Width 13.8 % (11.5-14.5) Platelet Count 229 x10^3/uL (140-400) Neutrophils (%) (Auto) 69 % (31-73) Lymphocytes (%) (Auto) 21 % (24-48) Monocytes (%) (Auto) 9 % (0-9) Eosinophils (%) (Auto) 1 % (0-3) Basophils (%) (Auto) 1 % (0-3) Neutrophils # (Auto) 5.8 x10^3uL (1.8-7.7) Lymphocytes # (Auto) 1.7 x10^3/uL (1.0-4.8) Monocytes # (Auto) 0.8 x10^3/uL (0.0-1.1) Eosinophils # (Auto) 0.1 x10^3/uL (0.0-0.7) Basophils # (Auto) 0.1 x10^3/uL (0.0-0.2) Prothrombin Time 15.4 SEC (11.7-14.0) Prothromb Time International Ratio 1.3 (0.8-1.1) Sodium Level 140 mmol/L (136-145) Potassium Level 4.2 mmol/L (3.5-5.1) Chloride Level 100 mmol/L (98-107) Carbon Dioxide Level 29 mmol/L (21-32) Anion Gap 11 (6-14) Blood Urea Nitrogen 15 mg/dL (7-20) Creatinine 0.9 mg/dL (0.6-1.0) Estimated GFR (Cockcroft-Gault) 62.3 BUN/Creatinine Ratio 17 (6-20) Glucose Level 100 mg/dL (70-99) Calcium Level 9.6 mg/dL (8.5-10.1) Total Bilirubin 0.8 mg/dL (0.2-1.0) Aspartate Amino Transf (AST/SGOT) 23 U/L (15-37) Alanine Aminotransferase (ALT/SGPT) 18 U/L (14-59) Alkaline Phosphatase 120 U/L (46-116) Troponin I Quantitative 0.034 ng/mL (0.000-0.055) 0.040 ng/mL (0.000-0.055) Total Protein 8.6 g/dL (6.4-8.2) Albumin 3.2 g/dL (3.4-5.0) Albumin/Globulin Ratio 0.6 (1.0-1.7) Lipase 75 U/L (73-393) Glucose (Fingerstick) 172 mg/dL (70-99) Test 04/20/18 00:15 04/20/18 06:10 04/20/18 06:57 04/20/18 10:48 Troponin I Quantitative 0.032 ng/mL (0.000-0.055) 0.038 ng/mL (0.000-0.055) Triglycerides Level 50 mg/dL (0-150) Cholesterol Level 88 mg/dL (0-200) LDL Cholesterol, Calculated 42 mg/dL (0-100) VLDL Cholesterol, Calculated 10 mg/dL (0-40) Non-HDL Cholesterol Calculated 52 mg/dL (0-129) HDL Cholesterol 36 mg/dL (40-60) Cholesterol/HDL Ratio 2.4 Glucose (Fingerstick) 76 mg/dL (70-99) 167 mg/dL (70-99) Test 04/20/18 14:45 Glucose (Fingerstick) 60 mg/dL (70-99) Laboratory Tests Test 04/19/18 17:45 04/19/18 20:36 04/20/18 00:15 04/20/18 06:10 Troponin I Quantitative 0.040 ng/mL (0.000-0.055) 0.032 ng/mL (0.000-0.055) 0.038 ng/mL (0.000-0.055) Glucose (Fingerstick) 172 mg/dL (70-99) Triglycerides Level 50 mg/dL (0-150) Cholesterol Level 88 mg/dL (0-200) LDL Cholesterol, Calculated 42 mg/dL (0-100) VLDL Cholesterol, Calculated 10 mg/dL (0-40) Non-HDL Cholesterol Calculated 52 mg/dL (0-129) HDL Cholesterol 36 mg/dL (40-60) Cholesterol/HDL Ratio 2.4 Test 04/20/18 06:57 04/20/18 10:48 04/20/18 14:45 Glucose (Fingerstick) 76 mg/dL (70-99) 167 mg/dL (70-99) 60 mg/dL (70-99) Allergies Allergies Coded Allergies Type Severity Reaction Last Updated Verified Penicillins Allergy Intermediate 01/17/13 Yes Disposition/Orders: D/C to Home SHABNAM REYES MD Apr 20, 2018 17:11
--- NOTE | 2018-04-20 18:33 | NUR ---
Discharge Note: MICHAEL GALLEGOS Discharge instructions and discharge home medications reviewed with Patient and a copy given. All questions have been answered and understanding verbalized. The following instructions and handouts were given: Discharge instructions, medications electronically sent to pharmacy, education regarding GERD, and follow up appointment Discontinued lines and drains: Peripheral IV intact. Patient discharged to Home or Self Care with Self via Wheelchair
[2018-04-20] MEDS ORDERED: ATORVASTATIN CALCIUM 10 MG TABLET. PO SCH (21:00)
[2018-04-21 00:15] LABS: HEMOGLOBIN A1C 7.2 % (4.8-5.6)
== END 2018-04-20 18:35 | disposition home or self-care (01) | DRG 392 ==
LOC: ER 12:46 → 2 NORTH 16:53
PROVIDERS: ADMIT Family Medicine; ATTEND Family Medicine
DX: K21.9 Gastro-esophageal reflux disease without esophagitis (principal); E44.1 Mild protein-calorie malnutrition; R10.9 Unspecified abdominal pain; R07.89 Other chest pain; J45.909 Unspecified asthma, uncomplicated; I10 Essential (primary) hypertension; E78.00 Pure hypercholesterolemia, unspecified; E10.9 Type 1 diabetes mellitus without complications; M19.90 Unspecified osteoarthritis, unspecified site; Z96.651 Presence of right artificial knee joint; I25.10 Atherosclerotic heart disease of native coronary artery without angina pectoris; M46.96 Unspecified inflammatory spondylopathy, lumbar region; M48.061 Spinal stenosis, lumbar region without neurogenic claudication; E78.5 Hyperlipidemia, unspecified; Z82.49 Family history of ischemic heart disease and other diseases of the circulatory system; Z95.5 Presence of coronary angioplasty implant and graft; Z79.4 Long term (current) use of insulin; Z90.710 Acquired absence of both cervix and uterus; Z82.3 Family history of stroke; Z88.0 Allergy status to penicillin; Z79.02 Long term (current) use of antithrombotics/antiplatelets; Z83.3 Family history of diabetes mellitus
CPT/HCPCS: 36415; 71045; 74177; 80053; 80061; 81001; 82962; 83036; 83690; 84484; 85025; 85610; 87086; 93005; 93306; 96361; 96374; 96375; 96376; J1815; J2270; J2405; J2765; J7030; Q9967; 99285-25

== ENCOUNTER 2019-02-13 11:00 | Emergency (ER) | payer MEDICARE ==
[~2019-02-13] VITALS: Ht 165.1 cm; Wt 111.1 kg
[~2019-02-13 11:00] MED LIST changes: +KETO5DRO24 EACHEYE; +MOXI3DRO EACHEYE; +OMEP40CA45 PO; -OMEP40CA5 PO; +POTA20TA4 PO; +PRED5DRO16 EACHEYE; +RANI150T2 PO
--- NOTE | 2019-02-13 11:35 | PHYS DOC ---
Past Medical History Past Medical History: Arthritis, Diabetes-Type II, High Cholesterol, Hypertension (CLAIRE FLOWERS APRN) Past Surgical History: Cholecystectomy, Hysterectomy, Knee Replacement, Other Additional Past Surgical Histo: RIGHT ROTATOR CUFF, NERVES IN NECK (CLAIRE FLOWERS APRN) Alcohol Use: None Drug Use: None (CLAIRE FLOWERS APRN) Adult General Chief Complaint Chief Complaint: FLU SYMPTOM HPI HPI Patient is a 68 year old female who presents with cough, fever that started yesterday. The patient states she started having a little bit of pain on coughing as well today. She she's been coughing quite a bit. She did receive her flu shot earlier this season. She is able to keep fluids down at home and is able to keep food down as well. She has not been checking her sugars at home and is a diabetic. (CLAIRE FLOWERS APRN) Review of Systems Review of Systems Constitutional: Reports fever or chills [] Eyes: Denies change in visual acuity, redness, or eye pain [] HENT: Denies nasal congestion or sore throat [] Respiratory: Reports cough and mild shortness of breath [] Cardiovascular: No additional information not addressed in HPI [] GI: Denies abdominal pain, nausea, vomiting, bloody stools or diarrhea [] : Denies dysuria or hematuria [] Musculoskeletal: Denies back pain or joint pain [] Integument: Denies rash or skin lesions [] Neurologic: Denies headache, focal weakness or sensory changes [] Endocrine: Denies polyuria or polydipsia [] Complete systems were reviewed and found to be within normal limits, except as documented in this note. (CLAIRE FLOWERS APRN) Current Medications Current Medications Current Medications Medications (Trade) Dose Ordered Sig/Corin Start Time Stop Time Status Last Admin Dose Admin Lidocaine HCl 5 ml 1X STAT 02/13/19 11:23 02/13/19 11:28 DC 02/13/19 12:01 5 ML (CLAIRE BOWEN DO) Allergies Allergies Allergies Coded Allergies Type Severity Reaction Last Updated Verified Penicillins Allergy Intermediate 01/17/13 Yes (CLAIRE BOWEN DO) Physical Exam Physical Exam Constitutional: Well developed, well nourished, no acute distress, non-toxic appearance. [] HENT: Normocephalic, atraumatic, bilateral external ears normal, oropharynx moist, no oral exudates, nose normal. [] Eyes: PERRLA, EOMI, conjunctiva normal, no discharge. [] Neck: Normal range of motion, no tenderness, supple, no stridor. [] Cardiovascular:Heart rate regular rhythm, no murmur [] Lungs & Thorax: Bilateral breath sounds mild wheezing in lower left base. Abdomen: Bowel sounds normal, soft, no tenderness, no masses, no pulsatile masses. [] Skin: Warm, dry, no erythema, no rash. [] Back: No tenderness, no CVA tenderness. [] Extremities: No tenderness, no cyanosis, no clubbing, ROM intact, no edema. [] Neurologic: Alert and oriented X 3, normal motor function, normal sensory function, no focal deficits noted. [] Psychologic: Affect normal, judgement normal, mood normal. [] (CLAIRE FLOWERS APRN) Current Patient Data Vital Signs Vital Signs Date Time Temp Pulse Resp B/P (MAP) Pulse Ox O2 Delivery O2 Flow Rate FiO2 02/13/19 13:00 69 171/73 (105) 96 02/13/19 12:05 Room Air 02/13/19 11:10 101.1 16 101.1 (CLAIRE BOWEN DO) Lab Values Laboratory Tests Test 02/13/19 12:00 02/13/19 12:05 White Blood Count 6.2 x10^3/uL (4.0-11.0) Red Blood Count 4.63 x10^6/uL (3.50-5.40) Hemoglobin 13.1 g/dL (12.0-15.5) Hematocrit 39.0 % (36.0-47.0) Mean Corpuscular Volume 84 fL (79-100) Mean Corpuscular Hemoglobin 28 pg (25-35) Mean Corpuscular Hemoglobin Concent 34 g/dL (31-37) Red Cell Distribution Width 13.5 % (11.5-14.5) Platelet Count 192 x10^3/uL (140-400) Neutrophils (%) (Auto) 75 % (31-73) H Lymphocytes (%) (Auto) 12 % (24-48) L Monocytes (%) (Auto) 12 % (0-9) H Eosinophils (%) (Auto) 1 % (0-3) Basophils (%) (Auto) 1 % (0-3) Neutrophils # (Auto) 4.6 x10^3/uL (1.8-7.7) Lymphocytes # (Auto) 0.7 x10^3/uL (1.0-4.8) L Monocytes # (Auto) 0.7 x10^3/uL (0.0-1.1) Eosinophils # (Auto) 0.0 x10^3/uL (0.0-0.7) Basophils # (Auto) 0.1 x10^3/uL (0.0-0.2) Sodium Level 136 mmol/L (136-145) Potassium Level 3.9 mmol/L (3.5-5.1) Chloride Level 100 mmol/L (98-107) Carbon Dioxide Level 27 mmol/L (21-32) Anion Gap 9 (6-14) Blood Urea Nitrogen 14 mg/dL (7-20) Creatinine 1.4 mg/dL (0.6-1.0) H Estimated GFR (Cockcroft-Gault) 37.3 BUN/Creatinine Ratio 10 (6-20) Glucose Level 203 mg/dL (70-99) H Calcium Level 9.2 mg/dL (8.5-10.1) Total Bilirubin 0.6 mg/dL (0.2-1.0) Aspartate Amino Transferase (AST) 35 U/L (15-37) Alanine Aminotransferase (ALT) 26 U/L (14-59) Alkaline Phosphatase 106 U/L (46-116) Total Protein 8.0 g/dL (6.4-8.2) Albumin 3.3 g/dL (3.4-5.0) L Albumin/Globulin Ratio 0.7 (1.0-1.7) L Influenza Type A Antigen Negative (NEGATIVE) Influenza Type B Antigen Negative (NEGATIVE) Laboratory Tests 02/13/19 12:00 Laboratory Tests 02/13/19 12:00 (CLAIRE BOWEN DO) Lab Values Laboratory Tests Test 02/13/19 12:00 02/13/19 12:05 White Blood Count 6.2 x10^3/uL (4.0-11.0) Red Blood Count 4.63 x10^6/uL (3.50-5.40) Hemoglobin 13.1 g/dL (12.0-15.5) Hematocrit 39.0 % (36.0-47.0) Mean Corpuscular Volume 84 fL (79-100) Mean Corpuscular Hemoglobin 28 pg (25-35) Mean Corpuscular Hemoglobin Concent 34 g/dL (31-37) Red Cell Distribution Width 13.5 % (11.5-14.5) Platelet Count 192 x10^3/uL (140-400) Neutrophils (%) (Auto) 75 % (31-73) H Lymphocytes (%) (Auto) 12 % (24-48) L Monocytes (%) (Auto) 12 % (0-9) H Eosinophils (%) (Auto) 1 % (0-3) Basophils (%) (Auto) 1 % (0-3) Neutrophils # (Auto) 4.6 x10^3/uL (1.8-7.7) Lymphocytes # (Auto) 0.7 x10^3/uL (1.0-4.8) L Monocytes # (Auto) 0.7 x10^3/uL (0.0-1.1) Eosinophils # (Auto) 0.0 x10^3/uL (0.0-0.7) Basophils # (Auto) 0.1 x10^3/uL (0.0-0.2) Sodium Level 136 mmol/L (136-145) Potassium Level 3.9 mmol/L (3.5-5.1) Chloride Level 100 mmol/L (98-107) Carbon Dioxide Level 27 mmol/L (21-32) Anion Gap 9 (6-14) Blood Urea Nitrogen 14 mg/dL (7-20) Creatinine 1.4 mg/dL (0.6-1.0) H Estimated GFR (Cockcroft-Gault) 37.3 BUN/Creatinine Ratio 10 (6-20) Glucose Level 203 mg/dL (70-99) H Calcium Level 9.2 mg/dL (8.5-10.1) Total Bilirubin 0.6 mg/dL (0.2-1.0) Aspartate Amino Transferase (AST) 35 U/L (15-37) Alanine Aminotransferase (ALT) 26 U/L (14-59) Alkaline Phosphatase 106 U/L (46-116) Total Protein 8.0 g/dL (6.4-8.2) Albumin 3.3 g/dL (3.4-5.0) L Albumin/Globulin Ratio 0.7 (1.0-1.7) L Influenza Type A Antigen Negative (NEGATIVE) Influenza Type B Antigen Negative (NEGATIVE) Laboratory Tests 02/13/19 12:00 Laboratory Tests 02/13/19 12:00 (CLAIRE FLOWERS APRN) EKG EKG [] (CLAIRE FLOWERS APRN) Radiology/Procedures Radiology/Procedures [][facility] [address] [place] [address] IMAGING REPORT Signed PATIENT: MICHAEL GALLEGOS ACCOUNT: [id number] : 1950 LOCATION: ER AGE: 68 SEX: F EXAM STATUS: REG ER ORD. PHYSICIAN: CLAIRE FLOWERS APRN REASON: cough, fever PROCEDURE: CHEST PA & LATERAL PA and lateral chest. HISTORY: Cough, fever PA and lateral views were taken of the chest. Lungs are free of confluent infiltrates. Heart is normal in size. There is no pleural effusion. IMPRESSION: 1. No acute chest disease. Electronically signed by: Drew Flowers MD (02/13/2019 11:51 AM) [id number] DICTATED and SIGNED BY: DREW FLOWERS MD DATE: 02/13/19 1151 (CLAIRE FLOWERS APRN) Course & Med Decision Making Course & Med Decision Making Pertinent Labs and Imaging studies reviewed. (See chart for details) Will get chest x-ray, check flu, and get labs. Will also give Nebulized lidocaine for cough. Chest x-ray is unremarkable. Labs are unremarkable with exception of slighly elevatated creatinine. She has had some slightly elevated creatinine in the past. Her cough has improved after lidocaine. Flu is negative. Chest x-ray is unremarkable. (CLAIRE FLOWERS APRN) Dragon Disclaimer Dragon Disclaimer This electronic medical record was generated, in whole or in part, using a voice recognition dictation system. (CLAIRE FLOWERS APRN) Departure Departure Impression: Primary Impression: Viral syndrome Disposition: 01 HOME, SELF-CARE Condition: STABLE Referrals: CLAIRE RANDOLPH MD (PCP) Patient Instructions: Viral Syndrome Additional Instructions: Thank you for visiting [facility]. We appreciate you trusting us with your care. If any additional problems come up don't hesitate to return to visit us. Please follow up with your primary care provider so they can plan additional care if needed and know about the problem that you had. If symptoms worsen come back to the Emergency Department. Any concerning symptoms that start such as chest pain, shortness of air, weakness or numbness on one side of the body, running high fevers or any other concerning symptoms return to the ER. Please be aware that diabetes can cause your sugars to fluctuate while you are sick. This can cause additional issues. Please check your sugars often to ensure they are staying in a safe range and if you are on insulin please take as instructed by your primary care doctor. If you have any questions about this please let us know or contact your primary care provider for additional instruction about taking your insulin while you are sick. If you get concerned regarding your sugar while at home please do not hesitate to come back to the ER. Please fill your medications at any pharmacy and follow the prescription instructions. Please drink plenty of fluids. If unable to keep fluids down please return to ER. Please get Tylenol and Ibuprofen over the counter. Give each medication every 6 hours as directed by the medication labels. In order to utilize the peak of the medications stagger the medications to where the child is getting one of the medications every 3 hours. For example if you give Ibuprofen at 3 PM, you then give Tylenol at 6 PM and Ibuprofen again at 9 PM, and then Tylenol at midnight. Scripts Benzonatate (TESSALON PERLE) 100 Mg Capsule 100 MG PO TID PRN for COUGH, #21 CAP Prov: CLAIRE FLOWERS APRN 02/13/19 Ondansetron (ONDANSETRON ODT) 4 Mg Tab.rapdis 1 TAB PO PRN Q6-8HRS, #16 TAB Prov: CLAIRE FLOWERS APRN 02/13/19 Attending Signature Attending Signature I have reviewed the PA/KARATE TEACHER's note and plan of care. I was available for consultation as needed during the patient's visit in the emergency department. I agree with the clinical impression, plan, and disposition. (CLAIRE BOWEN DO) CLAIRE FLOWERS APRN Feb 13, 2019 11:35 CLAIRE BOWEN DO Feb 17, 2019 19:46
--- NOTE | 2019-02-13 11:54 | RAD ---
PA and lateral chest. HISTORY: Cough, fever PA and lateral views were taken of the chest. Lungs are free of confluent infiltrates. Heart is normal in size. There is no pleural effusion. IMPRESSION: 1. No acute chest disease. Electronically signed by: Drew Flowers MD (02/13/2019 11:51 AM) [id number]
[2019-02-13] MEDS: LIDOCAINE 2% 20 ML VIAL. INH STA (12:01)
[2019-02-13 12:11] LABS: BASO # 0.1 x10^3/uL (0.0-0.2); BASO % 1 % (0-3); EOS % 1 % (0-3); HEMOGLOBIN 13.1 g/dL (12.0-15.5); LYMPH # 0.7 x10^3/uL (1.0-4.8); LYMPH % 12 % (24-48); MEAN CORPUSCULAR HEMOGLOBIN 28 pg (25-35); MEAN CORPUSCULAR HGB CONC 34 g/dL (31-37); MEAN CORPUSCULAR VOLUME 84 fL (79-100); MONO # 0.7 x10^3/uL (0.0-1.1); MONO % 12 % (0-9); NEUT # 4.6 x10^3/uL (1.8-7.7); NEUT % 75 % (31-73); PLATELET COUNT 192 x10^3/uL (140-400); RED BLOOD COUNT 4.63 x10^6/uL (3.50-5.40); RED CELL DISTRIBUTION WIDTH 13.5 % (11.5-14.5); WHITE BLOOD COUNT 6.2 x10^3/uL (4.0-11.0)
[2019-02-13 12:22] LABS: CALCIUM 9.2 mg/dL (8.5-10.1); CREATININE 1.4 mg/dL (0.6-1.0); GFR 37.3; POTASSIUM 3.9 mmol/L (3.5-5.1)
[2019-02-13 12:28] LABS: ALBUMIN 3.3 g/dL (3.4-5.0); ALBUMIN/GLOBULIN RATIO 0.7 (1.0-1.7); TOTAL BILIRUBIN 0.6 mg/dL (0.2-1.0)
[2019-02-13 12:36] LABS: INFLUENZA A PATIENT NEGATIVE (NEGATIVE); INFLUENZA B PATIENT NEGATIVE (NEGATIVE)
[2019-02-13] MEDS ORDERED: BENZ100C PO (12:50)
[2019-02-13] MEDS ORDERED: ONDA4TAB12 PO (12:50)
[2019-02-13 13:00] VITALS: BP 171/73
== END 2019-02-13 13:25 | disposition home or self-care (01) ==
LOC: ER 11:00
DX: B34.9 Viral infection, unspecified (principal); Z88.0 Allergy status to penicillin
CPT/HCPCS: 36415; 71046; 80053; 85025; 87804; 94640; 99285; J2001

== ENCOUNTER → 2019-08-06 | Outpatient (CLI) | payer MEDICARE ==
[~2019-08-06] MED LIST changes: +BENZ100C PO; +ONDA4TAB12 PO
--- NOTE | 2019-08-06 12:42 | KCIC ---
Bilateral digital screening mammograms with 3-D tomosynthesis: Reason for examination: Routine screening. Comparison is made to previous studies dated 04/29/2011 and 09/26/2007. Bilateral mammograms in CC and oblique projections were obtained with 2-D imaging and 3-D tomosynthesis imaging on a ScaleIO Inspiration unit and reviewed on the workstation. Interpretation was made with the benefit of CAD. The skin and nipples show no abnormalities. No abnormal axillary lymph nodes are seen. The breast parenchyma is predominantly fatty. (Breast density: Category A.) There are no dominant masses, suspicious calcifications or architectural distortion. Impression: No evidence of malignancy. Recommend routine screening. BI-RAD Category 1: Negative. "Our facility is accredited by the [employer] Mammography Program." This patient's information has been entered into a reminder system for the patient to be notified with the results of her examination and a target date for the next mammogram. Electronically signed by: Gita Aaron MD (08/06/2019 12:39 PM) [id number]
== END ==
LOC: KCIC MAMMO 10:39
PROVIDERS: ATTEND Family Medicine
DX: Z12.31 Encounter for screening mammogram for malignant neoplasm of breast (principal)
CPT/HCPCS: 77063; 77067

== ENCOUNTER → 2019-09-14 | Outpatient (CLI) | payer MEDICARE ==
--- NOTE | 2019-09-14 13:13 | CARD ---
MR#: [id number] Date of Study: 09/14/2019 Ordering Physician: JAMIL COE, Referring Physician: JAMIL COE, Tech: Elizabeth Cary APPROVED REPORT EXAM: Two-dimensional and M-mode echocardiogram with Doppler and color Doppler. Other Information Quality : AverageHR: 73bpm Technically limited study due to body habitus. INDICATION Cardiac Disease: CAD RISK FACTORS Hypertension Hyperlipidemia Diabetes 2D DIMENSIONS RVDd2.7 (2.9-3.5cm)IVSd1.1 (0.7-1.1cm) Aortic Root(2D)3.4 (2.0-3.7cm)LVDd5.8 (3.9-5.9cm) LVOT Diameter2.2 (1.8-2.4cm)PWd1.2 (0.7-1.1cm) LVEF(%)50.0 (>50%) Aortic Valve AoV Peak Aidan.130.3cm/sAoV VTI27.9cm AO Peak GR.6.8mmHgLVOT Peak Aidan.78.3cm/s LVOT VTI 16.78cmAO Mean GR.4mmHg SALVATORE (VMAX)1.31fw6EKC (VTI)2.32cm2 Mitral Valve MV E Ewkdvlou12.4cm/sMV DECEL [id number] MV A Cqwyypaz02.1cm/sMV E Mean Gr.2mmHg MV MUW19zgC/A Ratio1.1 MVA (PHT)3.92cm2 TDI E/Lateral E'12.5E/Medial E'11.3 Pulmonary Valve PV Peak Mfjkcrjy252.7cm/sPV Peak Grad.4mmHg Tricuspid Valve TR P. Saghicjq540dk/sRAP WHDSOGHE1dpDb TR Peak Gr.34hyYlANIZ08xmDz Pulmonary Vein S1 Xwyrvhng42.6cm/sD2 Inszuoqi58.5cm/s PVa tbbnsmhw167lmuk LEFT VENTRICLE The left ventricle is normal size. There is mild concentric left ventricular hypertrophy. The left ve ntricular systolic function is normal. The Ejection Fraction is 55%. There is normal LV segmental wal l motion. RIGHT VENTRICLE The right ventricle is normal size. There is normal right ventricular wall thickness. The right ventr icular systolic function is normal. ATRIA The left atrium size is normal. The right atrium size is normal. The interatrial septum is intact wit h no evidence for an atrial septal defect or patent foramen ovale as noted on 2-D or Doppler imaging. AORTIC VALVE The aortic valve is thickened but opens well. Doppler and Color Flow revealed trace aortic regurgitat ion. Calculated aortic valve area is 1.88 cm2 with maximum pressure gradient of 8 mmHg and mean press ure gradient of 5 mmHg. There is no significant aortic valvular stenosis. MITRAL VALVE The mitral valve is normal in structure and function. There is no evidence of mitral valve prolapse. There is no mitral valve stenosis. Doppler and Color Flow revealed no mitral valve regurgitation note d. TRICUSPID VALVE The tricuspid valve is normal in structure and function. Doppler and Color Flow revealed trace tricus pid regurgitation with an estimated PAP of 21 mmHg. There is no tricuspid valve stenosis. PULMONIC VALVE Doppler and Color Flow revealed trace to mild pulmonic valvular regurgitation. GREAT VESSELS The aortic root is normal in size. The ascending aorta is normal in size. The IVC is normal in size a nd collapses >50% with inspiration. PERICARDIAL EFFUSION There is no evidence of significant pericardial effusion. Critical Notification Critical Value: No <Conclusion> The left ventricular systolic function is normal. The Ejection Fraction is 55%. There is normal LV segmental wall motion. Trace tricuspid regurgitation with an estimated PAP of 21 mmHg. There is no evidence of significant pericardial effusion. Signed by : Jamil Coe, Electronically Approved : 09/14/2019 13:13:01
== END | disposition home or self-care (01) ==
LOC: ECHO 08:08
PROVIDERS: ATTEND Internal Medicine Cardiovascular Disease
DX: I37.1 Nonrheumatic pulmonary valve insufficiency (principal); I51.7 Cardiomegaly; I25.10 Atherosclerotic heart disease of native coronary artery without angina pectoris
CPT/HCPCS: 93306

== ENCOUNTER → 2019-10-06 | Outpatient (CLI) | payer MEDICARE ==
[~2019-10-06] MED LIST changes: +ASPI-886 PO; +CHOL500050 PO; +DICL100G54 TP; +FAMO-63 PO; +FLUT16SP NS; +VENTOLIN HFA18 GM INH
== END ==
LOC: LAB 12:54
PROVIDERS: ATTEND Internal Medicine Cardiovascular Disease
DX: Z20.828 Contact with and (suspected) exposure to other viral communicable diseases (principal)
CPT/HCPCS: U0003-CS

== ENCOUNTER 2019-10-08 06:50 | Outpatient (CLI) | payer MEDICARE ==
[~2019-10-08] VITALS: Ht 165.1 cm; Wt 113.4 kg
[2019-10-08] VITALS (13 sets, daily range): BP systolic 114–154; BP diastolic 57–73
[~2019-10-08 06:50] MED LIST changes: -ASPI-886 PO; -CHOL500050 PO; -DICL100G54 TP; -FAMO-63 PO; -FLUT16SP NS; -VENTOLIN HFA18 GM INH
[2019-10-08] MEDS ORDERED: LIDOCAINE 1% Multi-Dose 20 ML VIAL. ONE (07:39)
[2019-10-08] MEDS ORDERED: IODIXANOL 320 MG/ML 100 ML VIAL. ONE (07:39)
[2019-10-08 07:50] LABS: HEMATOCRIT 39.5 % (36.0-47.0); HEMOGLOBIN 13.4 g/dL (12.0-15.5); RED BLOOD COUNT 4.67 x10^6/uL (3.50-5.40); RED CELL DISTRIBUTION WIDTH 13.5 % (11.5-14.5)
[2019-10-08] MEDS ORDERED: CHOL500050 PO (07:58)
[2019-10-08] MEDS ORDERED: FLUT16SP NS (07:58)
[2019-10-08] MEDS ORDERED: ASPI-886 PO (07:58)
[2019-10-08] MEDS ORDERED: VENTOLIN HFA18 GM INH (07:58)
[2019-10-08] MEDS ORDERED: FAMO-63 PO (07:58)
[2019-10-08] MEDS ORDERED: DICL100G54 TP (07:58)
[2019-10-08 07:59] LABS: PROTHROMBIN TIME PATIENT 13.8 SEC (11.7-14.0)
[2019-10-08 08:04] LABS: CALCIUM 8.8 mg/dL (8.5-10.1); CREATININE 1.2 mg/dL (0.6-1.0); GFR 44.5; POTASSIUM 4.2 mmol/L (3.5-5.1)
[2019-10-08] MEDS ORDERED: fentaNYL PF VIAL 100 MCG/2 ML VIAL ONE (08:16)
[2019-10-08] MEDS ORDERED: MIDAZOLAM HCL/PF 5 MG/5 ML VIAL. ONE (08:17)
[2019-10-08] MEDS ORDERED: MIDAZOLAM HCL/PF 5 MG/5 ML VIAL. IV ONE (08:30)
[2019-10-08] MEDS ORDERED: LIDOCAINE 1% Multi-Dose 20 ML VIAL. INJ ONE (08:30)
[2019-10-08] MEDS ORDERED: fentaNYL PF VIAL 100 MCG/2 ML VIAL IV ONE (08:30)
[2019-10-08] MEDS ORDERED: IODIXANOL 320 MG/ML 100 ML VIAL. IART ONE (08:30)
--- NOTE | 2019-10-08 08:48 | PDOC ---
MODERATE SEDATION ASSESSMENT RISKS/ALTERNATIVES Risks/Alternatives Risks and alternatives of this type of sedation and procedure discussed with: RISK/ALTERNATIVES: Patient H & P ON CHART H & P H & P on chart and reviewed for co-morbid conditions and appropriate labs. H&P ON CHART: Yes STATUS PREG STATUS ASSESSED: N/A MEDS/ALLERGIES REVIEWED Meds/Allergies Reviewed Medications and Allergies including time and route of recently administered narcotics and sedatives. MEDS/ALLERGIES REVIEWED: Yes ASA RATING ASA RATING: II AIRWAY ASSESSMENT Airway Assessment Airway patency, oral function limitations, presence of caps, crowns, dentures, partials, and ability to extend neck assessed. AIRWAY ASSESSMENT: Yes MALLAMPATI SCORE MALLAMPATI SCORE: II PRE-SEDATION ASSESSMENT PRE-SEDATION ASSESSMENT: Yes JAMIL JAIN MD Oct 08, 2019 08:48
[2019-10-08] MEDS ORDERED: HEPARIN for IV BOLUS 10,000 UNIT/10 ML VIAL. ONE (09:06)
[2019-10-08] MEDS ORDERED: HEPARIN for IV BOLUS 10,000 UNIT/10 ML VIAL. IV ONE (09:15)
[2019-10-08] MEDS ORDERED: IV 1/2 NORMAL SALINE 1,000 ML IV SCH (09:51)
--- NOTE | 2019-10-08 10:09 | CARD ---
MR#: [id number] Date of Study: 10/08/2019 Ordering Physician: JAMIL JAIN, Referring Physician: JAMIL JAIN Tech: ROSA DELGADO RTR APPROVED REPORT Technologist: ROSA DELGADO RTR Nurse: Radha Hollis R.N. Procedure(s) performed: 1. Right and left heart catheterization, selective coronary angiography and left ventriculography 2. Instant wave free ratio (IFR) measurement to left circumflex artery stenosis MODERATE SEDATION TIME: 46 MINUTES FLUORO TIME: 5.9 MIN DOSE: 65.1 GYCM2 CONTRAST: 125CC VISI INDICATION The indication(s) include : Refractory dyspnea on exertion. [facility] Clinical Frailty Scale [facility] Clinical Frailty Scale: Mildly Frail Heart Failure Heart Failure: No PROCEDURE NARRATIVE After explaining the risks, benefits and alternative options, informed consent was obtained from lit ent. Patient was brought to the cardiac Ship Erector and her right groin was prepped and draped in the u sual fashion. 20 cc of 2% lidocaine was infiltrated into the skin and subcutaneous tissues for local anesthesia. Arterial and venous accesses were obtained in the right common femoral artery and vein respectively and 6 and 5 Swazi sheaths inserted. A 5 Swazi Denver-Jaison catheter was then advanced un raman fluoroscopy guidance and intracardiac pressures and oxygen saturations measured. 6 Swazi JL4 an d 6 Swazi JR4 catheters were then used to perform selective angiography of the left and right reed ry arteries. 6 Swazi pigtail catheter was used to perform left ventriculography. Since patient was found to have angiographically borderline significant stenosis involving a large ob tuse marginal branch of left circumflex artery, a decision was made to perform physiologic assessment using instant wave free ratio (IFR) measurement. The left main coronary artery was engaged with a 6 Swazi XB 3.5 guide catheter and the stenosis in the proximal segment of the obtuse marginal branch of left circumflex artery was crossed with a [employer] Verrata pressure wire. IFR measurement was made there was physiologically insignificant at 0.98. Hence no interventions were performed. Patient to lerated the procedure well. Hemostasis was achieved using Perclose and manual compression. There we re no immediate complications. FINDINGS A. RIGHT HEART CATHETERIZATION: 1. Intracardiac pressures: Mean right atrial pressure 10 mmHg, right ventricular pressure 42/9 mmHg, pulmonary artery pressure 33/15 mmHg with mean PA pressure 21 mmHg, and mean pulmonary capillary wed ge pressure 19 mmHg. No significant pulmonary hypertension. 2. Oxygen saturations: Right atrium 76.8%, pulmonary artery 75.9%, femoral arterial sheath 97.0%. N o evidence of intracardiac shunt. 3. Cardiac output by Shane method 4.98 L/min. B. LEFT HEART CATHETERIZATION 1. Hemodynamics: Slightly elevated left ventricular end-diastolic pressure of 24 mmHg consistent wit h mild acute on chronic diastolic heart failure. No pullback gradient across the aortic valve. 2. Left ventriculography: Normal left ventricular systolic function with ejection fraction estimated at 55%. No significant mitral regurgitation seen. 3. Coronary angiography: a. The left main coronary artery arose from the left sinus of Valsalva, was short, gave rise to the left anti-descending and left circumflex arteries and did not show any significant stenosis. b. The left anterior descending artery showed widely patent stent in the midsegment. c. The left circumflex artery showed 50% in-stent restenosis involving the proximal segment of a lar ge obtuse marginal branch. This was physiologically insignificant based on IFR measurement of 0.90. d. The right coronary artery was a dominant vessel arising from the right sinus of Valsalva that did not show any significant stenosis. Conclusion 1. Widely patent previously placed stent in left anterior descending artery. 50% in-stent restenosi s involving large obtuse marginal branch of left circumflex artery, proven to be physiologically insi gnificant based on IFR measurement of 0.98. No lesions needing intervention were noted. 2. Normal left ventricle systolic function with ejection fraction estimated at 55%. 3. Slightly elevated right and left-sided filling pressures. No significant pulmonary hypertension. 4. No evidence of intracardiac shunt. Recommendations Optimization of medical therapy. Signed by : Jamil Jain, Electronically Approved : 10/08/2019 10:09:16
--- NOTE | 2019-10-08 12:48 | NUR ---
Discharge Note: MICHAEL GALLEGOS [facility] Discharge instructions and discharge home medications reviewed with Patient and a copy given. All questions have been answered and understanding verbalized. The following instructions and handouts were given: Moderate Sedation and Groin site care Discontinued lines and drains: Left wrist IV dc'd and tip intact. Patient discharged to home with via personal vehicle.
== END 2019-10-08 12:35 | disposition home or self-care (01) ==
LOC: CCL 06:50
PROVIDERS: ATTEND Internal Medicine Cardiovascular Disease
DX: I25.118 Atherosclerotic heart disease of native coronary artery with other forms of angina pectoris (principal); I50.33 Acute on chronic diastolic (congestive) heart failure; K21.9 Gastro-esophageal reflux disease without esophagitis; R06.09 Other forms of dyspnea; Z79.82 Long term (current) use of aspirin; Z88.0 Allergy status to penicillin; Z79.899 Other long term (current) drug therapy
CPT/HCPCS: 36415; 80048; 85027; 85610; 93460; 93571; 99152; 99153; C1760; C1769; C1773; C1887; C1892; G0269; J1644; J2250; J3010; J3490; Q9967; C1771

== ENCOUNTER → 2020-12-04 | Outpatient (CLI) | payer MEDICARE ==
[2019-10-08 12:30] VITALS: BP 154/66
[~2020-12-04] MED LIST changes: +ASPI-886 PO; +CHOL500050 PO; +CYCL10TA19 PO; -CYCL10TA2 PO; +DICL100G54 TP; +DOCU-109 PO; +FAMO-63 PO; +FLUT16SP NS; +INSU100V11 INJ; +METH-562 PO; -METH750T2 PO; -OMEP40CA45 PO; +OMEP40CA7 PO; +VENTOLIN HFA18 GM INH; +VERA180T34 PO; -VERA180T6 PO; +vitamin d PO
--- NOTE | 2020-12-04 12:02 | CARD ---
MR#: [id number] Date of Study: 12/04/2020 Ordering Physician: JAMIL JAIN, Referring Physician: JAMIL JAIN, Tech: Elizabeth Cary, [facility] APPROVED REPORT EXAM: Two-dimensional and M-mode echocardiogram with Doppler and color Doppler. Other Information Quality : AverageHR: 89bpm Technically limited study due to body habitus. INDICATION Cardiac Disease: CAD RISK FACTORS Hypertension Diabetes 2D DIMENSIONS RVDd2.5 (2.9-3.5cm)Left Atrium(2D)3.8 (1.6-4.0cm) IVSd1.3 (0.7-1.1cm)Aortic Root(2D)3.1 (2.0-3.7cm) LVDd5.7 (3.9-5.9cm)LVOT Diameter2.1 (1.8-2.4cm) PWd1.1 (0.7-1.1cm)LVDs3.5 (2.5-4.0cm) FS (%) 37.8 %SV106.6 ml LVEF(%)67.2 (>50%) Aortic Valve AoV Peak Aidan.136.5cm/sAoV VTI25.7cm AO Peak GR.7.5mmHgLVOT Peak Aidan.89.3cm/s LVOT VTI 17.44cmAO Mean GR.4mmHg SALVATORE (VMAX)1.48oj0MHC (VTI)2.29cm2 Mitral Valve MV E Gfeonryk07.7cm/sMV DECEL [id number] MV A Wpigbcuf68.3cm/sMV E Mean Gr.2mmHg MV OXJ90tqJ/A Ratio1.0 MVA (PHT)3.85cm2 TDI E/Lateral E'11.5E/Medial E'10.4 Pulmonary Valve PV Peak Ntwmnvhl10.6cm/sPV Peak Grad.4mmHg Tricuspid Valve TR P. [id number]/sRAP XBUTAEXM0cxVi TR Peak Gr.64ajAkIACL50okYd Pulmonary Vein S1 Mtxbfmzr83.4cm/sD2 Xrxapkyq36.9cm/s PVa [id number] LEFT VENTRICLE The Left Ventricle is mildly dilated. There is mild concentric left ventricular hypertrophy. The left ventricular systolic function is normal and the ejection fraction is within normal range. The Ejecti on Fraction is 55-60%. There is normal LV segmental wall motion. Transmitral Doppler flow pattern is Grade II-pseudonormal filling dynamics. RIGHT VENTRICLE The right ventricle is normal size. There is normal right ventricular wall thickness. The right ventr icular systolic function is normal. ATRIA The left atrium size is normal. The right atrium size is normal. The interatrial septum is intact wit h no evidence for an atrial septal defect or patent foramen ovale as noted on 2-D or Doppler imaging. AORTIC VALVE The aortic valve is thickened but opens well. Doppler and Color Flow revealed no significant aortic r egurgitation. There is no significant aortic valvular stenosis. Calculated aortic valve area is 1.92 cm2 with maximum pressure gradient of 10 mmHg and mean pressure gradient of 5 mmHg. MITRAL VALVE The mitral valve is normal in structure and function. There is no evidence of mitral valve prolapse. There is no mitral valve stenosis. Doppler and Color Flow revealed no mitral valve regurgitation note d. TRICUSPID VALVE The tricuspid valve is normal in structure and function. Doppler and Color Flow revealed trace tricus pid regurgitation with an estimated PAP of 20 mmHg. There is no tricuspid valve stenosis. PULMONIC VALVE The pulmonic valve is not well visualized. Doppler and Color Flow revealed trace pulmonic valvular re gurgitation. There is no pulmonic valvular stenosis. GREAT VESSELS The aortic root is normal in size. The ascending aorta is Mildly dilated measuring 3.3 cm. The IVC is normal in size and collapses >50% with inspiration. PERICARDIAL EFFUSION There is no evidence of significant pericardial effusion. Critical Notification Critical Value: No <Conclusion> The left ventricular systolic function is normal and the ejection fraction is within normal range. Th e Ejection Fraction is 55-60%. There is normal LV segmental wall motion. The ascending aorta is mildly dilated measuring 3.3 cm. Signed by : Jasmeet Roberts, Electronically Approved : 12/04/2020 12:02:06
== END ==
LOC: ECHO 08:27
PROVIDERS: ATTEND Internal Medicine Cardiovascular Disease
DX: I51.7 Cardiomegaly (principal); I25.10 Atherosclerotic heart disease of native coronary artery without angina pectoris
CPT/HCPCS: 93306

== ENCOUNTER 2020-12-22 06:40 | Outpatient (CLI) | payer MEDICARE ==
[~2020-12-22] VITALS: Ht 165.1 cm; Wt 109.1 kg
[2020-12-22] VITALS (10 sets, daily range): BP systolic 138–190; BP diastolic 65–85
[~2020-12-22 06:40] MED LIST changes: -DOCU-109 PO; -INSU100V11 INJ; -vitamin d PO
[2020-12-22 07:27] LABS: HEMATOCRIT 41.3 % (36.0-47.0); HEMOGLOBIN 13.8 g/dL (12.0-15.5); RED BLOOD COUNT 4.69 x10^6/uL (3.50-5.40); RED CELL DISTRIBUTION WIDTH 13.5 % (11.5-14.5); WHITE BLOOD COUNT 6.9 x10^3/uL (4.0-11.0)
[2020-12-22 07:38] LABS: CALCIUM 9.2 mg/dL (8.5-10.1); CREATININE 1.1 mg/dL (0.6-1.0); POTASSIUM 4.3 mmol/L (3.5-5.1)
[2020-12-22] MEDS ORDERED: LIDOCAINE 1% Multi-Dose 20 ML VIAL. ONE (07:49)
[2020-12-22] MEDS ORDERED: IODIXANOL 320 MG/ML 100 ML VIAL. ONE (07:49)
[2020-12-22] MEDS ORDERED: LIDOCAINE 1% Multi-Dose 20 ML VIAL. INJ ONE (08:00)
[2020-12-22] MEDS ORDERED: fentaNYL PF VIAL 100 MCG/2 ML VIAL IV ONE (08:00)
[2020-12-22] MEDS ORDERED: MIDAZOLAM HCL/PF 2 MG/2 ML VIAL. IV ONE (08:00)
[2020-12-22] MEDS ORDERED: IODIXANOL 320 MG/ML 100 ML VIAL. IART ONE (08:00)
[2020-12-22] MEDS ORDERED: MIDAZOLAM HCL/PF 2 MG/2 ML VIAL. ONE ×2 (08:04→08:58)
[2020-12-22] MEDS ORDERED: fentaNYL PF VIAL 100 MCG/2 ML VIAL ONE (08:04)
[2020-12-22] MEDS ORDERED: INSU100V11 INJ (08:08)
[2020-12-22] MEDS ORDERED: vitamin d PO (08:08)
[2020-12-22] MEDS ORDERED: DOCU-109 PO (08:08)
[2020-12-22] MEDS ORDERED: HEPARIN for IV BOLUS 10,000 UNIT/10 ML VIAL. ONE (09:09)
[2020-12-22] MEDS ORDERED: HEPARIN for IV BOLUS 10,000 UNIT/10 ML VIAL. IV ONE (09:15)
--- NOTE | 2020-12-22 09:35 | PDOC ---
MODERATE SEDATION ASSESSMENT RISKS/ALTERNATIVES Risks/Alternatives Risks and alternatives of this type of sedation and procedure discussed with: RISK/ALTERNATIVES: Patient H & P ON CHART H & P H & P on chart and reviewed for co-morbid conditions and appropriate labs. H&P ON CHART: Yes STATUS PREG STATUS ASSESSED: N/A MEDS/ALLERGIES REVIEWED Meds/Allergies Reviewed Medications and Allergies including time and route of recently administered narcotics and sedatives. MEDS/ALLERGIES REVIEWED: Yes ASA RATING ASA RATING: II AIRWAY ASSESSMENT Airway Assessment Airway patency, oral function limitations, presence of caps, crowns, dentures, partials, and ability to extend neck assessed. AIRWAY ASSESSMENT: Yes MALLAMPATI SCORE MALLAMPATI SCORE: II PRE-SEDATION ASSESSMENT PRE-SEDATION ASSESSMENT: Yes JAMIL JAIN MD Dec 22, 2020 09:35
[2020-12-22] MEDS ORDERED: IV 1/2 NORMAL SALINE 1,000 ML IV SCH (09:45)
--- NOTE | 2020-12-22 09:52 | CARD ---
MR#: [id number] Date of Study: 12/22/2020 Ordering Physician: AJMIL COE, Referring Physician: JAMIL COE Tech: RT Katiana(R) APPROVED REPORT Technologist: RT Katiana(R) Nurse: Remedios Garvin RN Procedure(s) performed: 1. Right and left heart catheterization, selective coronary angiography and left ventriculography 2. Instantaneous wave free ratio (IFR) measurement of OM/LCx stenosis fl time: 5.1 min dose: 56.5 gycm2 contrast: 116 ml moderate sedation: 50 MINUTES INDICATION The indication(s) include : Refractory dyspnea on minor exertion in a patient with known history of c oronary artery disease. [facility] Clinical Frailty Scale [facility] Clinical Frailty Scale: Mildly Frail Heart Failure Heart Failure: No CASE TECHNIQUE IV conscious sedation was used throughout procedure with appropriate monitoring and was performed in the presence of a registered nurse who was an independent trained observer other than the physician p erforming the procedure. During this case, Fluoroscopy and low osmolar contrast were used for imaging . Specimen(s) Removed: No Estimated Blood loss: 20 cc's. PROCEDURE NARRATIVE After explaining the risk, benefits and alternative options, informed consent was obtained from patie nt. Patient was brought to the cardiac Radial Arm Saw Operator and her right groin was prepped and draped in the us ual fashion. 20 cc of 2% lidocaine was infiltrated into the skin and subcutaneous tissues for local anesthesia. Arterial and venous accesses were obtained in the right common femoral artery and vein r espectively and 6 and 8 Canadian sheaths inserted. A 7.5 Canadian Delta-Jaison catheter was then advanced u nder fluoroscopic guidance and intracardiac pressures, oxygen saturations and cardiac output by Shane method measured. Subsequently, 6 Canadian JL4 and 6 Canadian JR4 catheters were used to perform selectiv e angiography of the left and right coronary arteries. 6 Canadian pigtail catheter was used to perform left ventriculography. Since patient was found to have angiographically borderline significant sten osis involving a large obtuse marginal branch of left circumflex artery, a decision was made to perfo rm physiologic assessment using instantaneous wave free ratio (IFR) measurement. The left main coron jessica artery was engaged with a 6 Canadian XB 3.5 guide catheter and the stenosis in the OM was crossed w ith a [employer] Verrata pressure wire. iFR measurement was made that came back insignificant at 1.0. Patient tolerated the procedure well. Hemostasis was achieved using Angio-Seal and manual compressi on. There were no immediate complications. FINDINGS A. RIGHT HEART CATHETERIZATION 1. Intracardiac pressures: Mean right atrial pressure 5 mmHg, right ventricular pressure 30/4 mmHg, pulmonary artery pressure 30/11 mmHg with mean PA pressure 8 mmHg and mean pulmonary capillary wedge pressure of 8 mmHg. Normal right and left-sided filling pressures without any pulmonary hypertension . 2. Oxygen saturations: Right atrium 73.1%, pulmonary artery 71.7%, femoral arterial sheath 96.9%. N o evidence of intracardiac shunt. 3. Cardiac output by Shane method 5 L/min. B. LEFT HEART CATHETERIZATION 1. Hemodynamics: Left ventricular end-diastolic pressure 17 mmHg. No pullback gradient across aorti c valve. 2. Left ventriculography: Normal left ventricular systolic function with ejection fraction estimated at 60%. No significant mitral regurgitation seen. 3. Coronary angiography: a. The left main coronary artery arose from the left sinus of Valsalva, which short, gave rise to le ft anterior descending and left circumflex arteries and did not show any significant stenosis. b. The left anterior descending artery showed widely patent stent in the mid segment. c. The left circumflex artery showed 50 to 60% in-stent restenosis involving the proximal segment o f a large first obtuse marginal branch. This was physiologically insignificant based on IFR measurem ent of 1.0. d. The right coronary artery arose from the right sinus of Valsalva, was dominant and did not show a ny significant stenosis. Conclusion 1. 50 to 60% in-stent restenosis involving a large obtuse marginal branch of left circumflex artery, proven physiologically insignificant based on IFR measurement. The previously placed stent in the l eft anterior descending artery was widely patent. 2. Normal left ventricular systolic function with ejection fraction estimated at 60%. 3. Normal right and left-sided filling pressures without any pulmonary hypertension. 4. No evidence of intracardiac shunt. Recommendations Patient's refractory dyspnea on exertion most probably secondary to deconditioning. Recommend regula r exercise regimen and weight loss. Cardiovascular risk factor modification. Signed by : Jamil Coe, Electronically Approved : 12/22/2020 09:52:01
--- NOTE | 2020-12-22 14:39 | NUR ---
pt A&O x4. denies any pain, nausea or lightheadedness. VSS. tolerating po well. ambulated to BR w/o problem. rt groin site is clean and dry. no drainage or swelling noted. d/c instructions given and questions noted. pt out to vehicle per w/c- her to drive her home
== END 2020-12-22 13:00 | disposition home or self-care (01) ==
LOC: CCL 06:40
PROVIDERS: ATTEND Internal Medicine Cardiovascular Disease
DX: R06.09 Other forms of dyspnea (principal); I25.10 Atherosclerotic heart disease of native coronary artery without angina pectoris; I10 Essential (primary) hypertension; E78.00 Pure hypercholesterolemia, unspecified; E66.9 Obesity, unspecified; M19.90 Unspecified osteoarthritis, unspecified site; E11.9 Type 2 diabetes mellitus without complications; J45.909 Unspecified asthma, uncomplicated; Z90.710 Acquired absence of both cervix and uterus; Z98.890 Other specified postprocedural states; Z79.899 Other long term (current) drug therapy; Z79.82 Long term (current) use of aspirin; Z79.4 Long term (current) use of insulin; Z82.49 Family history of ischemic heart disease and other diseases of the circulatory system; Z88.0 Allergy status to penicillin; Z88.1 Allergy status to other antibiotic agents
CPT/HCPCS: 36415; 80048; 85027; 93460; 93571; 99152; 99153; C1760; C1769; C1773; C1887; C1894; J1644; J2250; J3010; J3490; Q9967; G0269